=== PATIENT | male | born 1945 | race Hispanic/Latino ===

== ENCOUNTER 2018-01-12 19:13 | Inpatient (IN) | payer OTHER ==
[2018-01-12 20:02] LABS: Absolute Lymphocytes (CBC) 2.1 K/uL (0.7-4.9); Absolute Monocytes 0.5 K/uL (0.1-1.3); Absolute Neutrophil 4.5 K/uL (1.8-8.0); Basophils % 0.7 % (0-1.3); Eosinophils % 2.4 % (0-4.4); Hematocrit 30.2 % (39.6-49.0); Lymphocytes % 27.9 % (15.3-44.8); MCH 31.3 pg (27.0-35.0); MCV 91.1 fL (80-100); MPV 8.6 fL (7.6-11.3); Monocytes % 7.3 % (3.3-12.3); Potassium 4.7 mEq/L (3.6-5.0); RBC Red Blood Cell Count 3.31 M/uL (4.33-5.43)
[2018-01-12 20:09] LABS: Protime INR 1.08
[2018-01-12 20:11] LABS: Magnesium 2.1 mg/dL (1.8-2.5)
--- NOTE | 2018-01-12 20:19 | RAD REPORT ---
EXAM DESCRIPTION: CT - Head Brain Wo Cont - 01/12/2018 7:44 pm CLINICAL HISTORY: Facial droop, possible CVA COMPARISON: None. TECHNIQUE: Axial 5 mm thick images of the head were obtained without IV contrast. All CT scans are performed using dose optimization technique as appropriate and may include automated exposure control or mA/KV adjustment according to patient size. FINDINGS: No intracranial hemorrhage. No acute cortical based infarction. Patient has a mild underly ing atrophy and chronic ischemic change. There is focally more prominent area of diminished attenuati on in the right basal ganglia and deep periventricular white matter right frontal lobe. No other area of focal attenuation abnormality. No abnormal extra-axial fluid collections. Ventricles are normal. Mastoid air cells and visualized portions of the paranasal sinuses are clear. No acute bony findings. IMPRESSION: Focal diminished attenuation right basal ganglia and deep periventricular white frontal lobe suspicious for acute to subacute nonhemorrhagic infarction. MR imaging could be used as follow-up to confirm or exclude acute component. Underlying atrophy and chronic ischemic change.
--- NOTE | 2018-01-12 20:20 | RAD REPORT ---
EXAM DESCRIPTION: RAD - Chest Single View - 01/12/2018 7:52 pm CLINICAL HISTORY: Shortness of breath, stroke-like symptoms COMPARISON: None. TECHNIQUE: AP portable chest image was obtained 1942 hour . FINDINGS: Lung volumes are low. No peripheral mass or consolidation. No failure or volume overload. Heart and vasculature are normal. No measurable pleural effusion and no pneumothorax. No gross bony a bnormality seen. No acute aortic findings suspected. IMPRESSION: Shallow inspiration film showing no acute cardiopulmonary finding.
[2018-01-12] MEDS ORDERED: ACETAMINOPHEN 500 MG TAB PO PRN (21:56)
[2018-01-12] MEDS ORDERED: ONDANSETRON 4 MG/2 ML VIAL IV PRN (21:56)
[2018-01-12] MEDS ORDERED: MAGNESIUM HYDROXIDE 8% 30 ML PO PRN (21:56)
--- NOTE | 2018-01-12 22:15 | EDPHYS ---
Physician Documentation [facility] Name: Bryon Hopson Age: 72 yrs Sex: Male : 1945 Arrival Date: 01/12/2018 Time: 19:15 Bed 28 Private MD: ED Physician Carter Smith HPI: 01/12 22:15 This 72 yrs old Male presents to ER via Ambulatory with complaints of S/S of ps1 Possible Stroke. 22:15 The patient's problem is reported as a facial droop, on left. Onset: The ps1 symptoms/episode began/occurred yesterday, at 18:00. Duration: This was a single incident, The episode is continuous. Context: occurred at home. Patient's baseline: Neuro: alert and fully oriented, Motor: no deficits, Ambulation: walks without assistance, Speech: normal. No blood thinners. . Historical: - Allergies: 19:27 No Known Allergies; la1 - PMHx: 19:27 Hypertension; Diabetes - NIDDM; la1 - Immunization history:: Adult Immunizations up to date. - Social history:: Smoking status: unknown. ROS: 22:15 Constitutional: Negative for fever, chills, and weight loss, Eyes: Negative for injury, ps1 pain, redness, and discharge, ENT: Negative for injury, pain, and discharge, Cardiovascular: Negative for chest pain, palpitations, and edema, Respiratory: Negative for shortness of breath, cough, wheezing, and pleuritic chest pain, Abdomen/GI: Negative for abdominal pain, nausea, vomiting, diarrhea, and constipation, Back: Negative for injury and pain, : Negative for injury, bleeding, discharge, and swelling, MS/Extremity: Negative for injury and deformity, Skin: Negative for injury, rash, and discoloration. 22:15 Neuro: Positive for weakness, left facial droop. Exam: 22:16 Radiologist reports: subacute basal ganglia stroke ps1 22:16 Constitutional: This is a well developed, well nourished patient who is awake, alert, and in no acute distress. Head/Face: Normocephalic, atraumatic. Eyes: Pupils equal round and reactive to light, extra-ocular motions intact. Lids and lashes normal. Conjunctiva and sclera are non-icteric and not injected. ENT: Nares patent. No nasal discharge, no septal abnormalities noted. Tympanic membranes are normal and external auditory canals are clear. Oropharynx with no redness, swelling, or masses, exudates, or evidence of obstruction, uvula midline. Mucous membranes moist. Chest/axilla: Normal chest wall appearance and motion. Nontender with no deformity. No lesions are appreciated. Cardiovascular: Regular rate and rhythm. No gallops, murmurs, or rubs. Normal PMI, no JVD. No pulse deficits. Respiratory: Lungs have equal breath sounds bilaterally, clear to auscultation and percussion. No rales, rhonchi or wheezes noted. No increased work of breathing, no retractions or nasal flaring. Abdomen/GI: Soft, non-tender, with normal bowel sounds. No distension or tympany. No guarding or rebound. No evidence of tenderness throughout. 22:16 MS/ Extremity: Pulses equal, no cyanosis. Neurovascular intact. Full, normal range of motion. 22:16 Neuro: Orientation: is normal, Mentation: is normal, Memory: is normal, Cranial nerves: normal except 7, facial droop noted on left, with forehead spared. Vital Signs: 19:23 BP 206 / 85; Pulse 71; Resp 24; Temp 97.8(TE); Pulse Ox 99% on R/A; ae1 20:17 BP 175 / 85; Pulse 73; Resp 19; Pulse Ox 100% on R/A; la1 20:38 BP 187 / 87; Pulse 84; Resp 19; Temp 97.1; Pulse Ox 100% on R/A; la1 21:34 BP 174 / 74; Pulse 63; Resp 19; Pulse Ox 96% on R/A; la1 22:45 BP 177 / 100; Pulse 63; Resp 19; Pulse Ox 100% on R/A; lp1 NIH Stroke Scale Scores: 19:28 NIHSS Score: 2 la1 MDM: 20:26 Patient medically screened. ps1 22:16 Data reviewed: vital signs, nurses notes, lab test result(s), radiologic studies. ED ps1 course: pt with subacute stroke. Admit for neurology consult, MRI, risk reduction, PT/OT. . 01/12 19:28 Order name: Magnesium; Complete Time: 20:15 ps1 01/12 19:28 Order name: Basic Metabolic Panel; Complete Time: 20:15 ps1 01/12 19:28 Order name: CBC with Diff; Complete Time: 20:15 ps1 01/12 19:28 Order name: Protime (+inr); Complete Time: 20:15 ps1 01/12 19:28 Order name: Lipid Profile; Complete Time: 20:15 [facility] 01/12 19:42 Order name: Glucose, Ancillary Testing; Complete Time: 20:15 [facility] 01/12 22:00 Order name: CBC with Automated Diff EDMS 01/12 22:00 Order name: CBC with Automated Diff EDMS 01/12 22:00 Order name: Comprehensive Metabolic Panel EDMS 01/12 22:00 Order name: Comprehensive Metabolic Panel EDMS 01/12 22:00 Order name: Hemoglobin A1C [facility] 01/12 22:00 Order name: Hemoglobin A1C [facility] 01/12 22:00 Order name: Lipid Profile [facility] 01/12 22:00 Order name: Lipid Profile [facility] 01/12 19:28 Order name: CT Head Brain wo Cont; Complete Time: 20:26 ps1 01/12 19:28 Order name: Stroke CXR 1 View; Complete Time: 20:26 [facility] 01/12 19:28 Order name: EKG; Complete Time: 19:29 [facility] 01/12 22:00 Order name: Echo with Doppler [facility] 01/12 22:00 Order name: Stroke Protocol [facility] 01/12 22:00 Order name: Magnesium [facility] 01/12 22:00 Order name: Magnesium [facility] 01/12 22:00 Order name: Phosphorus [facility] 01/12 22:00 Order name: Phosphorus [facility] 01/12 22:00 Order name: T4,Total EDMS 01/12 22:00 Order name: T4,Total [facility] 01/12 22:00 Order name: Thyroid Stimulating Hormone [facility] 01/12 22:00 Order name: Thyroid Stimulating Hormone [facility] 01/12 22:01 Order name: Chest Pa And Lat (2 Views) [facility] 01/13 02:20 Order name: Urine Dipstick--Ancillary (enter results) oe 01/13 02:32 Order name: Urine Dipstick-Ancillary; Complete Time: 02:35 [facility] 01/12 19:28 Order name: Accucheck; Complete Time: 19:30 ps1 01/12 19:28 Order name: Cardiac monitoring; Complete Time: 19:30 [facility] 01/12 19:28 Order name: EKG - Nurse/Tech; Complete Time: 19:30 [facility] 01/12 19:28 Order name: IV Saline Lock; Complete Time: : [facility] 01/12 19:28 Order name: Labs collected and sent; Complete Time: : [facility] 01/12 19:28 Order name: NPO; Complete Time: : [facility] 01/12 19:28 Order name: O2 Per Protocol; Complete Time: : [facility] 01/12 19:28 Order name: O2 Sat Monitoring; Complete Time: : [facility] 01/12 19:28 Order name: Stroke Swallow Screen; Complete Time: 22:08 [facility] 01/12 22:00 Order name: CONS Physician Consult [facility] 01/12 22:00 Order name: EKG Electrocardiogram [facility] 01/12 22:00 Order name: NPO [facility] 01/12 22:00 Order name: Physical Therapy Consult [facility] 01/12 22:01 Order name: Speech Therapy Consult EDMS Administered Medications: No medications were administered Point of Care Testing: Blood Glucose: 19:23 Blood Glucose: 177 mg/dL; ae1 Ranges: Critical Glucose Levels:Adult <50 mg/dl or >400 mg/dl <40 mg/dl or >180 mg/dl Disposition: 01/12/18 22:14 Hospitalization ordered by Lizzy Ortega for Inpatient Admission. Preliminary diagnosis is Ischemic Stroke.. - Bed requested for Telemetry/MedSurg (Inpatient). - Status is Inpatient Admission. bb - Condition is Stable. - Problem is new. - Symptoms are unchanged. UTI on Admission? No NIH Stroke Scale - NIH Stroke Score Date: 01/12/2018 Time: : Total Score = 2 1a. Level of Consciousness (LOC) - 0(Alert) 1b. Level of Consciousness (LOC) (Year \T\ Age) - 0(Both) 1c. LOC Commands (Open \T\ Closes Eyes/Security Monitor) - 0(Both) 2. Best Gaze (Lateral Gaze Paresis) - 0(Normal) 3. Visual Field Loss - 0(No visual loss) 4. Facial Palsy - 2(Partial paralysis) 5a. Left Arm: Motor (10-second hold) - 0(No drift) 5b. Right Arm: Motor (10-second hold) - 0(No drift) 6a. Left Leg: Motor (5-second hold - always test supine) - 0(No drift) 6b. Right Leg: Motor (5-second hold - always test supine) - 0(No drift) 7. Limb Ataxia (finger/nose \T\ heel/pate - test with eyes open) - 0(Absent) 8. Sensory Loss (pinprick arms/legs/face) - 0(Normal) 9. Best Language: Aphasia (description/naming/reading) - 0(No aphasia) 10. Dysarthria (speech clarity - read or repeat words) - 0(Normal) 11. Extinction and Inattention (visual/tactile/auditory/spatial/personal) - 0(No abnormality) Initials: la1 Signatures: Dispatcher [employer] EDAde Jackman RN RN mw Ballard, Brenda, RN RN bb Attema, Lee, RN RN la1 Carter Smith MD MD ps1
--- NOTE | 2018-01-12 22:15 | ER ---
Nurse's Notes [facility] Name: Bryon Hopson Age: 72 yrs Sex: Male : 1945 Arrival Date: 01/12/2018 Time: 19:15 Bed 28 Private MD: Diagnosis: Ischemic Stroke. Presentation: 01/12 19:24 Presenting complaint:. ae1 19:24 Acuity: MERE 2 ae1 19:26 Transition of care: patient was not received from another setting of care. An acute la1 neurological deficit is present. Pre-hospital glucose is not applicable to this patient. Onset of symptoms was January 11, 2018. Initial Sepsis Screen: Does the patient meet any 2 criteria? No. Patient's initial sepsis screen is negative. Does the patient have a suspected source of infection? No. Patient's initial sepsis screen is negative. Care prior to arrival: None. 19:26 Method Of Arrival: Ambulatory la1 Triage Assessment: 22:26 The onset of the patients symptoms was January 11, 2018 at 18:00. lp1 Stroke Activation: Symptom onset > 6 hours Physician: Stroke Attending; Name: ; Notified At: ; Arrived At: Physician: Chief Stroke Resident; Name: ; Notified At: ; Arrived At: Physician: Stroke Resident; Name: ; Notified At: ; Arrived At: Physician: ED Attending; Name: ; Notified At: ; Arrived At: Physician: ED Resident; Name: ; Notified At: ; Arrived At: Historical: - Allergies: 19:27 No Known Allergies; la1 - PMHx: 19:27 Hypertension; Diabetes - NIDDM; la1 - Immunization history:: Adult Immunizations up to date. - Social history:: Smoking status: unknown. Screenin:27 Abuse screen: Denies threats or abuse. Nutritional screening: No deficits noted. la1 Tuberculosis screening: No symptoms or risk factors identified. Fall Risk None identified. Assessment: 19:28 T-PA (Activase) Screening: Contraindications: Patient reports onset of signs and la1 symptoms of stroke greater than 6 hours ago: Yes. General: Appears in no apparent distress. Behavior is calm, cooperative. Pain: Denies pain. Neuro: Level of Consciousness is awake, alert, obeys commands, Oriented to person, place, time, situation, Weight Control Engineer are equal bilaterally Moves all extremities. Full function Gait is steady, Speech is normal, Facial droop on right, Pupils are PERRLA. Cardiovascular: Capillary refill < 3 seconds Patient's skin is warm and dry. Rhythm is sinus rhythm. Respiratory: Airway is patent Respiratory effort is even, unlabored, Respiratory pattern is regular, symmetrical, Breath sounds are clear bilaterally. GI: No signs and/or symptoms were reported involving the gastrointestinal system. 20:02 The patient has not been NPO before screening. The patient is alert, and able to follow la1 commands. The patient does not exhibit slurred or garbled speech. The patient is not exhibiting difficulty speaking. The patient is exhibiting difficulty understanding words. The patient is able to swallow own secretions with no drooling or need for suction. Patient tolerated one teaspoon of water. No drooling, immediate coughing, gurgling, or clearing of the throat was noted. The patient did not tolerate 90mL of water. Drooling, immediate coughing, gurgling, or clearing of the throat was noted. The patient failed the bedside swallow screening. The patient will be kept NPO until cleared by Speech Therapy or Physician. Provider notified of bedside swallow screening results: Carter Smith MD. 20:17 Reassessment: Patient appears in no apparent distress at this time. No changes from la1 previously documented assessment. Patient and/or family updated on plan of care and expected duration. Pain level reassessed. 21:34 Reassessment: Patient appears in no apparent distress at this time. No changes from la1 previously documented assessment. Patient and/or family updated on plan of care and expected duration. Pain level reassessed. 01/13 00:00 Reassessment: Patient ER hold, continued documentation on [employer]. ad1 Vital Signs: 01/12 19:23 BP 206 / 85; Pulse 71; Resp 24; Temp 97.8(TE); Pulse Ox 99% on R/A; ae1 20:17 BP 175 / 85; Pulse 73; Resp 19; Pulse Ox 100% on R/A; la1 20:38 BP 187 / 87; Pulse 84; Resp 19; Temp 97.1; Pulse Ox 100% on R/A; la1 21:34 BP 174 / 74; Pulse 63; Resp 19; Pulse Ox 96% on R/A; la1 22:45 BP 177 / 100; Pulse 63; Resp 19; Pulse Ox 100% on R/A; lp1 NIH Stroke Scale Scores: 19:28 NIHSS Score: 2 la1 ED Course: 19:15 Patient arrived in ED. mr 19:20 Carter Smith MD is Attending Physician. ps1 19:25 Triage completed. ae1 19:25 Danie Finney, RN is Primary Nurse. la1 19:26 Arm band placed on left wrist. la1 19:27 No provider procedures requiring assistance completed. Inserted saline lock: 20 gauge la1 in right antecubital area, using aseptic technique. 19:29 Placed in gown. Bed in low position. Call light in reach. air sampling and monitoring on. Pulse ox la1 on. NIBP on. 19:44 CT Head Brain wo Cont In Process Unspecified. EDMS 19:44 CT completed. Patient tolerated procedure well. Patient moved to CT via stretcher. Patient moved back from CT. 19:52 Stroke CXR 1 View In Process Unspecified. EDMS 22:00 Report received from Danie Finney RN. lp1 22:14 Carter Smith MD is Hospitalizing Provider. ps1 22:14 Lizzy Ortega MD is Hospitalizing Provider. ps1 22:25 Patient admitted, IV remains in place. lp1 22:34 Chest Pa And Lat (2 Views) In Process Unspecified. EDMS 22:34 X-ray completed. Portable x-ray completed in exam room. Patient tolerated procedure kc2 well. 22:34 Patient moved back from radiology. kc2 01/13 01:06 Primary Nurse role handed off by Danie Finney, RN cc Administered Medications: No medications were administered Point of Care Testing: Blood Glucose: 01/12 19:23 Blood Glucose: 177 mg/dL; ae1 Ranges: Outcome: 22:14 Decision to Hospitalize by Provider. ps1 23:10 Admitted to ER Hold. Please see [facility] for further documentation. lp1 23:10 Condition: stable 23:10 Instructed on the need for admit. 01/13 06:35 Patient left the ED. bb NIH Stroke Scale - NIH Stroke Score Date: 01/12/2018 Time: : Total Score = 2 1a. Level of Consciousness (LOC) - 0(Alert) 1b. Level of Consciousness (LOC) (Year \T\ Age) - 0(Both) 1c. LOC Commands (Open \T\ Closes Eyes/Personnel Recruiter) - 0(Both) 2. Best Gaze (Lateral Gaze Paresis) - 0(Normal) 3. Visual Field Loss - 0(No visual loss) 4. Facial Palsy - 2(Partial paralysis) 5a. Left Arm: Motor (10-second hold) - 0(No drift) 5b. Right Arm: Motor (10-second hold) - 0(No drift) 6a. Left Leg: Motor (5-second hold - always test supine) - 0(No drift) 6b. Right Leg: Motor (5-second hold - always test supine) - 0(No drift) 7. Limb Ataxia (finger/nose \T\ heel/pate - test with eyes open) - 0(Absent) 8. Sensory Loss (pinprick arms/legs/face) - 0(Normal) 9. Best Language: Aphasia (description/naming/reading) - 0(No aphasia) 10. Dysarthria (speech clarity - read or repeat words) - 0(Normal) 11. Extinction and Inattention (visual/tactile/auditory/spatial/personal) - 0(No abnormality) Initials: la1 Signatures: Dispatcher [employer] [facility] Ileana Zhang mr Jorge, Venu Jenise Cade, RN RN Flor Mullen RN RN ad1 Pema Peres Laura, RN RN lp1 Danie Finney RN RN la1 Kathleen Campbell 2 Bart Fleming RN RN ae1 Carter Smith MD MD ps1
[2018-01-13] MEDS ORDERED: NA CHLORIDE 0.9% 1,000 ML ONE (00:31)
[2018-01-13] MEDS: NA CHLORIDE 0.9% 1,000 ML IV SCH ×3 (00:45→19:10)
[2018-01-13 01:23] VITALS: BMI 25.8
[2018-01-13 02:32] LABS: Urine Blood NEGATIVE (NEG); Urine Glucose NEGATIVE (NEG); Urine Protein 1+ (NEG); Urine Specific Gravity 1.015 (1.005-1.030)
[2018-01-13 06:43] LABS: Absolute Lymphocytes (CBC) 1.9 K/uL (0.7-4.9); Absolute Monocytes 0.5 K/uL (0.1-1.3); Absolute Neutrophil 3.3 K/uL (1.8-8.0); Basophils % 0.9 % (0-1.3); Eosinophils % 3.5 % (0-4.4); Hematocrit 30.3 % (39.6-49.0); Lymphocytes % 32.6 % (15.3-44.8); MCH 30.2 pg (27.0-35.0); MPV 8.3 fL (7.6-11.3); Monocytes % 7.7 % (3.3-12.3); RBC Red Blood Cell Count 3.33 M/uL (4.33-5.43)
[2018-01-13] MEDS ORDERED: HOME MED 1 EA UNK (Metformin Hcl [Metformin Hcl] 1,000 MG) PO SCH (08:00)
[2018-01-13 08:27] LABS: Albumin 3.8 g/dL (3.2-5.5); Bilirubin Total 0.6 mg/dL (0.3-1.2); Magnesium 1.9 mg/dL (1.8-2.5); Potassium 4.5 mEq/L (3.6-5.0); Protein, Total 7.1 g/dL (6.0-8.3); T4,Total 9.8 ug/dl (6.09-12.23); Thyroid Stimulating Hormone 3.13 uIU/mL (0.34-5.60)
--- NOTE | 2018-01-13 08:28 | P.HP ---
Certification for Inpatient Patient admitted to: Inpatient With expected LOS: >2 Midnights Patient will require the following post-hospital care: None Practitioner: I am a practitioner with admitting privileges, knowledge of patient current condition, hospital course, and medical plan of care. Services: Services provided to patient in accordance with Admission requirements found in Title 42 Section 412.3 of the Code of Federal Regulations Patient History Date of Service: 01/12/18 Reason for admission: left-sided facial droop History of Present Illness: Patient is a 72-year-old gentleman who presents to the hospital with a left- sided facial droop. Patient's droop started around 6:00 p.m. yesterday. This was shortly after he was eating dinner. The droop had not improve so he came into the hospital today. Patient was seen in the emergency room and a CT of the head was performed. According to the emergency room physician this revealed a subacute infarct. Patient was given anti-platelet therapy and statin therapy. Patient will be admitted to the hospital for an MRI of the brain along with an echocardiogram and carotid Doppler. Patient did well swallowing and does not necessarily need a swallow eval or physical therapy as strength is minimally diminished. Will discuss with Neurology regarding further plan of care. Allergies No Known Allergies Allergy (Verified 02/06/17 11:18) Home Medications: Gabapentin [Neurontin] 600 mg PO BID 01/13/18 Glipizide [Glucotrol] 10 mg PO BID 01/13/18 Latanoprost Ophth [Xalatan 0.005%*] 1 gtt OPTH BEDTIME 01/13/18 Metformin HCl 1,000 mg PO BID 01/13/18 Multivitamin [One-A-Day Essential] 1 tab PO DAILY 01/13/18 Polyvinyl Alcohol [Artificial Tears] 1 gtt OPTH QID 01/13/18 Ramipril [Altace] 10 mg PO DAILY 01/13/18 Timolol 0.5% Opth [Timoptic 0.5% Opth*] 1 gtt OPTH BID 01/13/18 Vit A/Vit C/Vit E/Zinc/Copper [Preservision Areds Softgel] 1 cap PO DAILY - Past Medical/Surgical History Has patient received pneumonia vaccine in the past: Yes Diabetic: Yes -: Hypertension -: NIDDM -: Cholecystectomy -: Cataracts - Family History Father Family History: Reviewed- Non-Contributory - Social History Smoking Status: Current every day smoker Alcohol use: No CD- Drugs: No Caffeine use: Yes Place of Residence: Home Review of Systems 10-point ROS is otherwise unremarkable Physical Examination - Vital Signs Temperature: 97.5 F Blood Pressure: 182/71 Pulse: 60 Respirations: 20 Pulse Ox (%): 100 - Physical Exam General: Alert, In no apparent distress, Oriented x3 HEENT: Atraumatic, PERRLA, Mucous membr. moist/pink, Other ( left-sided facial droop), EOMI, Sclerae nonicteric Neck: Supple, 2+ carotid pulse no bruit, No LAD, Without JVD or thyroid abnormality Respiratory: Clear to auscultation bilaterally, Normal air movement Cardiovascular: Regular rate/rhythm, Normal S1 S2, No murmurs Gastrointestinal: Normal bowel sounds, Soft and benign, Non-distended, No tenderness Musculoskeletal: No clubbing, No swelling, No tenderness Integumentary: No rashes Neurological: Normal gait, Normal speech, Normal strength at 5/5 x4 extr, Normal tone, Sensation intact, Normal affect, Abnormal cranial nerve function Lymphatics: No axilla or inguinal lymphadenopathy - Studies Laboratory Data (last 24 hrs) 01/12/18 19:30: PT 12.8 H, INR 1.08 01/12/18 19:30: WBC 7.4, Hgb 10.4 L, Hct 30.2 L, Plt Count 242 01/12/18 19:30: Sodium 137, Potassium 4.7, BUN 29 H, Creatinine 1.36 H, Glucose 177 H, Magnesium 2.1, Triglycerides 222 H, Cholesterol 163, HDL Cholesterol 38, Cholesterol/HDL Ratio 4.29 Assessment & Plan - Problems (Diagnosis) (1) Acute CVA (cerebrovascular accident) Current Visit: Yes Status: Acute (2) Hypertension Current Visit: Yes Status: Acute (3) Type 2 diabetes mellitus Current Visit: Yes Status: Acute (4) Acute kidney injury Current Visit: Yes Status: Acute - Plan 1. MRI of the brain 2. Echocardiogram and carotid Doppler 3. Anti-platelet therapy and statin therapy 4. Neurology consultation 5. Physical therapy/occupational therapy/speech therapy evaluation 6. Modified barium swallow study 7. DVT prophylaxis - Advance Directives Does patient have a Living Will: No Does patient have a Durable POA for Healthcare: No - Code Status/Comfort Care Code Status Assessed: Yes Code Status: Full Code Critical Care: No Time Spent Managing PTS Care (In Minutes): 45
[2018-01-13] MEDS: RAMIPRIL 5 MG CAP PO SCH (08:58)
[2018-01-13] MEDS: ENOXAPARIN 40 MG/0.4 ML SQ SCH (08:58)
[2018-01-13] MEDS: MULTIVITAMIN TAB PO SCH (08:58)
[2018-01-13] MEDS: AMLODIPINE 10 MG TAB PO SCH (08:59)
[2018-01-13] MEDS: glipiZIDE 5 MG TAB PO SCH ×2 (08:59→16:30)
[2018-01-13] MEDS: OCUVITE (VIT A,C & E/LUTEIN/MINERAL) TABLET PO SCH (08:59)
[2018-01-13] MEDS: METFORMIN HCL 500 MG TAB PO SCH ×2 (08:59→16:58)
[2018-01-13] MEDS: ASPIRIN EC 81 MG TAB PO SCH (08:59)
[2018-01-13] MEDS: GABAPENTIN 300 MG CAP PO SCH ×2 (08:59→20:51)
[2018-01-13] MEDS ORDERED: HOME MED 1 EA UNK (Gabapentin [Neurontin] 600 MG) PO SCH (09:00)
[2018-01-13] MEDS ORDERED: METFORMIN HCL 500 MG TAB PO SCH (09:00)
[2018-01-13] MEDS ORDERED: glipiZIDE 5 MG TAB PO SCH (09:00)
[2018-01-13] MEDS ORDERED: RAMIPRIL 5 MG CAP PO SCH (09:00)
[2018-01-13] MEDS: CLOPIDOGREL 75 MG TABLET PO SCH (09:00)
[2018-01-13] MEDS ORDERED: MULTIVITAMIN TAB PO SCH (09:00)
--- NOTE | 2018-01-13 10:52 | RAD REPORT ---
EXAM DESCRIPTION: RAD - Chest Pa And Lat (2 Views) - 01/12/2018 10:39 pm CLINICAL HISTORY: Chest pain, CVA COMPARISON: 01/12/2018 FINDINGS: The lungs are clear. The heart is normal in size. No displaced fractures. Mild thoracic sp ondylosis. IMPRESSION: No acute or concerning finding suspected.
--- NOTE | 2018-01-13 12:11 | P.PN ---
Subjective Date of Service: 01/13/18 Chief Complaint: left-sided facial droop Pt seen and examined at bedside with RN. Chart reviewed. Pt has no c/o overnight. Passed bedside swallow study. Review of Systems General: As per HPI Physical Examination - Vital Signs Temperature: 97.5 F Blood Pressure: 180/68 Pulse: 60 Respirations: 20 Pulse Ox (%): 100 - Physical Exam General: Alert, In no apparent distress, Oriented x3, Other (Left sided Facial droop noted. ) HEENT: Atraumatic Neck: Supple Respiratory: Clear to auscultation bilaterally, Normal air movement Cardiovascular: Regular rate/rhythm, Normal S1 S2 Gastrointestinal: Normal bowel sounds, No tenderness Musculoskeletal: No tenderness Integumentary: No rashes Neurological: Normal speech, Normal strength at 5/5 x4 extr, Normal tone, Cranial nerves 3-12 intact, Normal affect, Other (Left sided facial Droop) Lymphatics: No axilla or inguinal lymphadenopathy - Studies Laboratory Data (last 24 hrs) 01/12/18 19:30: PT 12.8 H, INR 1.08 01/12/18 19:30: WBC 7.4, Hgb 10.4 L, Hct 30.2 L, Plt Count 242 01/12/18 19:30: Sodium 137, Potassium 4.7, BUN 29 H, Creatinine 1.36 H, Glucose 177 H, Magnesium 2.1, Triglycerides 222 H, Cholesterol 163, HDL Cholesterol 38, Cholesterol/HDL Ratio 4.29 Medications List Reviewed: Yes Assessment & Plan - Problems (Diagnosis) (1) Acute CVA (cerebrovascular accident) Current Visit: Yes Status: Acute Plan: Right Basal Ganglia infarct with left side facial Droop -Head CT + for right basal ganglia and deep white frontal lobe infarct -MRI, MRA and ECHO pending -Carotid U/S pending -ASA, Plavix, Lipitor on board -Neurology consulted. Awaiting reccs -PT.OT and ST consulted -Pt passed bedside swallow. (2) Acute kidney injury Current Visit: Yes Status: Resolved (3) Hypertension Current Visit: Yes Status: Chronic Qualifiers: Hypertension type: essential hypertension Qualified Code(s): I10 - Essential (primary) hypertension (4) Type 2 diabetes mellitus Current Visit: Yes Status: Chronic Qualifiers: Diabetes mellitus assisted insulin use: without petroleum terminal plant operator use Diabetes mellitus complication status: without complication Qualified Code(s): E11.9 - Type 2 diabetes mellitus without complications Discharge Plan: Other Plan to discharge in: 48 Hours - Code Status/Comfort Care Code Status Assessed: Yes Critical Care: No
[2018-01-13] MEDS ORDERED: D50W 25 GM/50 ML SYRINGE IV PRN (13:33)
[2018-01-13] MEDS ORDERED: GLUCAGON 1 MG/VIAL IM PRN (13:33)
[2018-01-13] MEDS: INSULIN -REGULAR HUMAN 50 UNIT/0.5 ML ML SQ SCH ×2 (16:30→20:53)
--- NOTE | 2018-01-13 18:11 | RAD REPORT ---
EXAM DESCRIPTION: JOCELYN - CP - 01/13/2018 5:53 pm CLINICAL HISTORY: CVA COMPARISON: None. TECHNIQUE: Real-time sonographic evaluation of both carotid systems was performed. Doppler interroga tion was performed with waveform tracing bilaterally. FINDINGS: Normal high resistance waveforms are noted in both external carotid arteries. The common c arotid arteries and internal carotid arteries show normal low resistance waveforms. Moderate hard plaquing is seen in both carotid bulbs, slightly greater on the left. Peak systolic and end diastolic velocity values and the ICA/CCA ratios are in the non-hemodynamically significant rang e. Antegrade flow seen in both vertebral arteries. IMPRESSION: Moderate hard plaquing in both carotid bulbs, slightly greater on the left. No evidence of a hemodynamically significant stenosis.
--- NOTE | 2018-01-13 18:55 | CON ---
Date of Consultation: 01/13/2018 Time: 1455. Reason: Stroke. History: A 72-year-old gentleman with hypertension and diabetes, who was in his usual state of healt h until he had abrupt onset of left arm clumsiness and left facial weakness night, had diffi culty opening the refrigerator door with his left hand. He is left-handed. He thought the problem w ould improve, but it did not, so when his daughter found him with left-sided weakness and difficulty swallowing and speaking on Monday, she brought him to the emergency department where a CT scan of the brain demonstrates hypodensity, right basal ganglia and periventricular white matter on the right as well consistent with symptom complex. The patient was not normally on Plavix or any type of lipid-l owering agent at home. Problem has been gotten any worse, has improved dramatically since being admi tted. Consultation was requested. Past Medical History: As alluded to. Medications: Currently Norvasc, aspirin 162, Lipitor 80, Plavix 75, Lovenox, gabapentin, Dilantin, T imoptic to glaucoma, metformin, Altace. Allergies: NONE. Social History: The patient is normally independent with activities of daily living. Family History: Noncontributory. Review of Systems: General: General good health. Eyes: Denies. Ears, Nose, Throat: Dysarthria. Cardiovascular: Hypertension. Pulmonary: Negative. GI: Negative. : Negative. Musculoskeletal: As noted. Neurologic: As noted. Psychiatric: Negative. Endocrine: Diabetes. Hematologic: Negative. Physical Examination: Vital Signs: 97.5, 60, 20, 180/68. General: Pleasant gentleman, lying in bed, in no distress. Awake, alert, oriented. Heart: Sinus rhythm. No carotid bruits. Lungs: Clear. Abdomen: Soft. Bowel sounds present. Neurologic: He is awake, alert, oriented. Moderate dysarthria. HEENT: Pupils reactive. Ocular motion full. Sanchez full. Moderate left facial weakness. Extremities: Examination of his extremities, slight drift in left upper extremity with bilateral int erphalangeal weakness 4+, otherwise full strength. Sensation decreased distally. No cortical extinc tion. Reflexes trace. Toes are actually bilaterally downgoing. Cerebellar exam demonstrates no antonia yanci. Stroke scale was 3. Impression: Acute cerebral infarction. Plan: Continue dual anti-platelet therapy for now, probably just downgrade that over the Plavix on d ischarge. Continue intensive statin therapy and DVT prophylaxis. LDL 95. TSH normal. Has echo and brain MRI upcoming. Check carotid Doppler as well. Thank you for the consult. We will continue to follow with you. PHONG Voice ID: [id number] Report ID: [id number]
[2018-01-13] MEDS: ATORVASTATIN 20 MG TAB PO SCH (20:51)
[2018-01-13] MEDS: LATANOPROST 0.005% 2.5ML OPTH OPTH SCH (20:52)
[2018-01-13] MEDS: TIMOLOL MALEATE 0.5% OPTH 5 ML BTL OPTH SCH (20:52)
[2018-01-14] MEDS: NA CHLORIDE 0.9% 1,000 ML IV SCH ×2 (04:06→20:25)
[2018-01-14] MEDS: INSULIN -REGULAR HUMAN 50 UNIT/0.5 ML ML SQ SCH ×4 (07:30→20:29)
[2018-01-14] MEDS: glipiZIDE 5 MG TAB PO SCH ×2 (07:30→16:30)
[2018-01-14] MEDS: METFORMIN HCL 500 MG TAB PO SCH ×2 (08:00→17:00)
[2018-01-14 08:23] LABS: A1c Component 0.48 mg/dL; Hemoglobin A1c 6.5 % (4-6.0)
[2018-01-14] MEDS: OCUVITE (VIT A,C & E/LUTEIN/MINERAL) TABLET PO SCH (09:04)
[2018-01-14] MEDS: AMLODIPINE 10 MG TAB PO SCH (09:04)
[2018-01-14] MEDS: CLOPIDOGREL 75 MG TABLET PO SCH (09:05)
[2018-01-14] MEDS: GABAPENTIN 300 MG CAP PO SCH ×2 (09:05→20:28)
[2018-01-14] MEDS: RAMIPRIL 5 MG CAP PO SCH (09:05)
[2018-01-14] MEDS: MULTIVITAMIN TAB PO SCH (09:05)
[2018-01-14] MEDS: ASPIRIN EC 81 MG TAB PO SCH (09:05)
[2018-01-14] MEDS: ENOXAPARIN 40 MG/0.4 ML SQ SCH (09:06)
[2018-01-14] MEDS: TIMOLOL MALEATE 0.5% OPTH 5 ML BTL OPTH SCH ×2 (09:09→20:27)
--- NOTE | 2018-01-14 10:40 | P.PN ---
Subjective Date of Service: 01/14/18 Chief Complaint: left-sided facial droop Pt seen and examined at bedside with RN. Chart reviewed. Pt has no c/o overnight. Passed bedside swallow study. Review of Systems General: As per HPI Physical Examination - Vital Signs Temperature: 98.2 F Blood Pressure: 194/82 Pulse: 66 Respirations: 18 Pulse Ox (%): 99 - Physical Exam General: Alert, In no apparent distress HEENT: Atraumatic, PERRLA, EOMI Neck: Supple, JVD not distended Respiratory: Clear to auscultation bilaterally, Normal air movement Cardiovascular: Regular rate/rhythm, Normal S1 S2 Gastrointestinal: Normal bowel sounds, No tenderness Musculoskeletal: No tenderness Integumentary: No rashes Neurological: Normal speech, Normal tone, Cranial nerves 3-12 intact, Normal reflexes 2+, Normal affect, Other (Left sided facial Droop) Lymphatics: No axilla or inguinal lymphadenopathy - Studies Medications List Reviewed: Yes Assessment & Plan - Problems (Diagnosis) (1) Acute CVA (cerebrovascular accident) Current Visit: Yes Status: Acute Plan: Right Basal Ganglia infarct with left side facial Droop. Doing well today. -Head CT + for right basal ganglia and deep white frontal lobe infarct -MRI, MRA and ECHO pending -Carotid U/S done -ASA, Plavix, Lipitor on board -Neurology consulted. Reccs appreciated -DC on plavix only. -Awaiting results from MRI -PT.OT and ST consulted -Pt passed bedside swallow. - PT and ST (2) Acute kidney injury Current Visit: Yes Status: Resolved Plan: Improved now. -Continue with IV fluids -Avoid Nephrotoxic agent (3) Hypertension Current Visit: Yes Status: Chronic Qualifiers: Hypertension type: essential hypertension Qualified Code(s): I10 - Essential (primary) hypertension (4) Type 2 diabetes mellitus Current Visit: Yes Status: Chronic Qualifiers: Diabetes mellitus manager intermediate insulin use: without custodial use Diabetes mellitus complication status: without complication Qualified Code(s): E11.9 - Type 2 diabetes mellitus without complications Discharge Plan: Home (With HH for PT and ST) Plan to discharge in: 24 Hours - Code Status/Comfort Care Code Status Assessed: Yes Critical Care: No
--- NOTE | 2018-01-14 15:21 | PN ---
Date of Progress Note: 01/14/2018 Time: 1115. Reason: Stroke. Interval History: The patient is stable. No difficulties overnight. MRI and echo still pending. S edimentation rate is elevated to 56. Thyroid normal. B12 is pending. LDL as noted elevated at 95. Physical Examination: Vital Signs: Blood pressure is remaining elevated 194/82. He is afebrile. Vitals are otherwise sta ble. General: He is awake, alert, and oriented. HEENT: Pupils reactive. Ocular motion full. Sanchez full. Decreased left nasolabial fold. Extremities: Drift left upper extremity. No cortical extinction. Reflexes trace. Left toe upgoing . Impression: Cerebral infarction. Plan: Continue present medications. Brain MRI and echo tomorrow. May be hold or stop dual anti-tia telet therapy and just transition over to Plavix depending on the results of the brain MRI and MRA. We will continue to follow with you. PHONG Voice ID: [id number] Report ID: [id number]
--- NOTE | 2018-01-14 16:14 | EKG ---
Test Date: 2018-01-12 Test Time: 19:24:00 Credit Products Officer: NANO MEASUREMENT RESULTS: Intervals: Rate: 67 MS: 148 QRSD: 98 QT: 392 QTc: 414 [place]: P: 25 MS: 148 QRS: 0 T: 4 INTERPRETIVE STATEMENTS: Normal sinus rhythm Normal ECG Compared to ECG 04/25/1996 09:51:00 No significant changes Electronically Signed On 01-14-18 16:14:01 CDT by Rashaun Miller
[2018-01-14] MEDS: ATORVASTATIN 20 MG TAB PO SCH (20:28)
[2018-01-14] MEDS: LATANOPROST 0.005% 2.5ML OPTH OPTH SCH (20:30)
[2018-01-15 02:41] VITALS: O2SAT 96
[2018-01-15] MEDS: NA CHLORIDE 0.9% 1,000 ML IV SCH (05:59)
[2018-01-15 06:22] LABS: Albumin 3.3 g/dL (3.2-5.5); Bilirubin Total 0.6 mg/dL (0.3-1.2); Potassium 4.1 mEq/L (3.6-5.0)
[2018-01-15 06:54] LABS: Absolute Lymphocytes (CBC) 1.7 K/uL (0.7-4.9); Absolute Monocytes 0.5 K/uL (0.1-1.3); Basophils % 0.6 % (0-1.3); Hematocrit 27.6 % (39.6-49.0); Lymphocytes % 31.2 % (15.3-44.8); MCH 30.9 pg (27.0-35.0); MCV 90.6 fL (80-100); MPV 8.5 fL (7.6-11.3); Monocytes % 8.8 % (3.3-12.3); RBC Red Blood Cell Count 3.05 M/uL (4.33-5.43)
[2018-01-15] MEDS: INSULIN -REGULAR HUMAN 50 UNIT/0.5 ML ML SQ SCH ×3 (07:30→15:57)
[2018-01-15] MEDS: ENOXAPARIN 40 MG/0.4 ML SQ SCH (09:22)
[2018-01-15] MEDS: glipiZIDE 5 MG TAB PO SCH ×2 (09:22→16:30)
[2018-01-15] MEDS: METFORMIN HCL 500 MG TAB PO SCH (09:23)
[2018-01-15] MEDS: CLOPIDOGREL 75 MG TABLET PO SCH (09:23)
[2018-01-15] MEDS: GABAPENTIN 300 MG CAP PO SCH (09:23)
[2018-01-15] MEDS: OCUVITE (VIT A,C & E/LUTEIN/MINERAL) TABLET PO SCH (09:23)
[2018-01-15] MEDS: ASPIRIN EC 81 MG TAB PO SCH (09:24)
[2018-01-15] MEDS: MULTIVITAMIN TAB PO SCH (09:25)
[2018-01-15] MEDS: RAMIPRIL 5 MG CAP PO SCH (09:25)
[2018-01-15] MEDS: AMLODIPINE 10 MG TAB PO SCH (09:25)
--- NOTE | 2018-01-15 09:54 | RAD REPORT ---
EXAM DESCRIPTION: MRI - Stroke Protocol - 01/15/2018 8:42 am CLINICAL HISTORY: CVA, slurred speech COMPARISON: CT head January 12 TECHNIQUE: Sagittal T1- weighted images were obtained along with PD/heavily T2- weighted and T2-FLAI R images. Axial DWI and ADC mapping sequences were also obtained. Coronal heavily T2- weighted images were obtained. MRA head imaging performed with source images and 3D reconstruction images reviewed. MRA neck imaging was performed with source and 3D reconstruction imaging reviewed. Post contrast T1 i maging was performed. A 17 ml GD dosage was utilized. FINDINGS: An approximately 2.5 centimeter area of abnormal diffusion signal is present in the deep p eriventricular white matter of the frontal lobe extending inferiorly to the superior margin basal patti glia. This incorporates a small portion of the posterior limb internal capsule. This has diminished s ignal on ADC mapping along with hypointense T1 and hyperintense T2 signal. This acute nonhemorrhagic CVA matches the abnormality on the January 12 CT study. No abnormal enhancement. No other areas of acute infarction identifiable. Patient has minimal atrophy and no measurable chroni c ischemic change. No significant mass effect. There is no edema or shift of midline structures. No e xtra-axial fluid collections. Fuentes-matter/white matter junction is preserved. Signal voids are seen a s a normal finding in the major intracranial vessels. Mastoid air cells and paranasal sinuses are clear. No globe or orbit abnormality. MRA Head imaging shows no aneurysm or vascular malformation. The anterior, middle and posterior cereb ral artery distribution show no significant degree of atherosclerotic change. Patient has a very smal l P1 LICENSE DISTRIBUTOR segment on the right. Almost all of the right LICENSE DISTRIBUTOR supply comes through the posterior communi cating artery. Approximately 50% stenosis present at the right common carotid internal carotid artery junction. The proximal left internal carotid artery shows 60% narrowing. Both internal carotid arteries are tortuou s but otherwise without additional stenosis. No internal carotid or common carotid dissection. Left v ertebral artery is dominant. There slight narrowing at the origin. No acute left vertebral finding. T here is little if any identifiable blood flow within the right vertebral artery.Carotid ultrasound sh owed right vertebral artery flow. It is possible that a muscular branch was incorrectly identified as a vertebral artery. IMPRESSION: Approximately 2.5 centimeter acute nonhemorrhagic infarction in the right frontal lobe p eriventricular white matter extending into the superior margin right basal ganglia and posterior limb internal capsule. These CVA findings match the CT study from January 12. No significant atrophy changes and no measurable chronic ischemic change. Approximately 50% stenosis of the right common carotid internal carotid junction and 60% stenosis of the initial 12 mm of the left internal carotid artery. Nonvisualization of the right vertebral artery. This could be due to dissection or occlusion. A very small vertebral artery as an anatomic variant would be possible. The carotid ultrasound finding of no rmal right vertebral artery flow may be the result of incorrect identification of a muscular branch. No significant intracranial atherosclerotic change. With an absent or very small P1 LICENSE DISTRIBUTOR segment, it i s not likely the infarction is related to the vertebral artery abnormality.
[2018-01-15] MEDS: TIMOLOL MALEATE 0.5% OPTH 5 ML BTL OPTH SCH (10:51)
--- NOTE | 2018-01-15 15:16 | ECHO ---
HEIGHT: 5 ft 8 in WEIGHT: 170 lb 0 oz DATE OF STUDY: 01/15/[address]: Lizzy Ortega MD 2-DIMENSIONAL: YES M.MODE: YES DOPPLER: YES COLOR FLOW: YES TDS: NO PORTABLE: NO DEFINITY: NO BUBBLE STUDY: NO DIAGNOSIS: STROKE CARDIAC HISTORY: CATHERIZATION: NO SURGERY: NO PROSTHETIC VALVE: NO PACEMAKER: NO MEASUREMENTS (cm) DIASTOLIC (NORMALS) SYSTOLIC (NORMALS) IVSd 1.1 (0.6-1.2) LA Diam 3.9 (1.9-4.0) LVEF 52% LVIDd 5.1 (3.5-5.7) LVIDs 3.7 (2.0-3.5) %FS 26% LVPWd 1.1 (0.6-1.2) Ao Diam 2.9 (2.0-3.7) 2 DIMENSIONAL ASSESSMENT: RIGHT ATRIUM: NORMAL LEFT ATRIUM: NORMAL RIGHT VENTRICLE: NORMAL LEFT VENTRICLE: NORMAL TRICUSPID VALVE: NORMAL MITRAL VALVE: NORMAL PULMONIC VALVE: NORMAL AORTIC VALVE: NORMAL PERICARDIAL EFFUSION: NONE AORTIC ROOT: NORMAL LEFT VENTRICULAR WALL MOTION: NORMAL DOPPLER/COLOR FLOW: NORMAL COMMENTS: NORMAL 2 DIMENSIONAL ECHOCARDIOGRAM WITH DOPPLER TECHNOLOGIST: JAYME MO RDCS
[2018-01-15 15:55] VITALS: BP 166/79; TEMP 97.6
--- NOTE | 2018-01-15 17:49 | P.DS ---
Admission Date: 01/12/18 Discharge Date: 01/15/18 Primary Care Provider: Dr. Britt Disposition: DC HOME/HOME HEALTH CARE Discharge Condition: GOOD Reason for Admission: left-sided facial droop Consultations: Neurology-Dr. Hensley Procedures: MRI/MRA brain: FINDINGS: An approximately 2.5 centimeter area of abnormal diffusion signal is present in the deep periventricular white matter of the frontal lobe extending inferiorly to the superior margin basal ganglia. This incorporates a small portion of the posterior limb internal capsule. This has diminished signal on ADC mapping along with hypointense T1 and hyperintense T2 signal. This acute nonhemorrhagic CVA matches the abnormality on the January 12 CT study. No abnormal enhancement. No other areas of acute infarction identifiable. Patient has minimal atrophy and no measurable chronic ischemic change. No significant mass effect. There is no edema or shift of midline structures. No extra-axial fluid collections. Fuentes- matter/white matter junction is preserved. Signal voids are seen as a normal finding in the major intracranial vessels. Mastoid air cells and paranasal sinuses are clear. No globe or orbit abnormality. MRA Head imaging shows no aneurysm or vascular malformation. The anterior, middle and posterior cerebral artery distribution show no significant degree of atherosclerotic change. Patient has a very small P1 FOREIGN CAR MECHANIC segment on the right. Almost all of the right FOREIGN CAR MECHANIC supply comes through the posterior communicating artery. Approximately 50% stenosis present at the right common carotid internal carotid artery junction. The proximal left internal carotid artery shows 60% narrowing. Both internal carotid arteries are tortuous but otherwise without additional stenosis. No internal carotid or common carotid dissection. Left vertebral artery is dominant. There slight narrowing at the origin. No acute left vertebral finding. There is little if any identifiable blood flow within the right vertebral artery.Carotid ultrasound showed right vertebral artery flow. It is possible that a muscular branch was incorrectly identified as a vertebral artery. IMPRESSION: Approximately 2.5 centimeter acute nonhemorrhagic infarction in the right frontal lobe periventricular white matter extending into the superior margin right basal ganglia and posterior limb internal capsule. These CVA findings match the CT study from January 12. No significant atrophy changes and no measurable chronic ischemic change. Approximately 50% stenosis of the right common carotid internal carotid junction and 60% stenosis of the initial 12 mm of the left internal carotid artery. Nonvisualization of the right vertebral artery. This could be due to dissection or occlusion. A very small vertebral artery as an anatomic variant would be possible. The carotid ultrasound finding of normal right vertebral artery flow may be the result of incorrect identification of a muscular branch. No significant intracranial atherosclerotic change. With an absent or very small P1 FOREIGN CAR MECHANIC segment, it is not likely the infarction is related to the vertebral artery abnormality. ECHO: Echocardiogram 61% otherwise unremarkable Carotid doppler: Moderate plaque noted but no significant stenosis noted - Problems (1) Hyperlipidemia Status: Chronic Qualifiers: Hyperlipidemia type: unspecified Qualified Code(s): E78.5 - Hyperlipidemia , unspecified (2) Acute CVA (cerebrovascular accident) Onset Date: 01/15/18 Status: Acute (3) Hypertension Onset Date: 01/15/18 Status: Chronic Qualifiers: Hypertension type: essential hypertension Qualified Code(s): I10 - Essential (primary) hypertension (4) Type 2 diabetes mellitus Onset Date: 01/15/18 Status: Chronic Qualifiers: Diabetes mellitus moth exterminator insulin use: without moth exterminator use Diabetes mellitus complication status: without complication Qualified Code(s): E11.9 - Type 2 diabetes mellitus without complications Brief History of Present Illness: 72-year-old male presented emergency room with weakness and left facial droop. Patient has a history of diabetes, hypertension. The patient was evaluated for possible CVA Hospital Course: The patient presented with weakness throughout and left-sided facial weakness. Patient was evaluated by neurology. CT scan, MRI brain was done. MRI/MRA brain showed 2.5 centimeter acute nonhemorrhagic infarction in the right frontal lobe periventricular white matter extending into the superior margin right basal ganglia and posterior limb internal capsule. Approximately 50% stenosis of the right common carotid internal carotid junction and 60% stenosis of the initial 12 mm of the left internal carotid artery. Echocardiogram was unremarkable with ejection fraction of 61%. Carotid Doppler showed moderate plaque but no significant stenosis. During his stay the patient reported no previous use of aspirin and Plavix. Patient did well with dual therapy in in the hospital. Case was discussed at length with Neurology and his PCP. At discharge patient will continue with Plavix 75 mg 1 pill once daily. Other new medications include Lipitor 80 mg 1 pill daily for hyperlipidemia and Norvasc 10 mg 1 pill daily to be added for hypertension. Patient was evaluated by physical therapy, occupational therapy and speech therapy. At discharge home health will be continued along with occupational and speech therapy. Recommendation is for the patient to follow up with neurology in 2-4 weeks to monitor his progress. Further adjustment can be done by his PCP. Patient has hypertension. Blood pressure medications had to be adjusted. Patient will continue with Altace 10 mg 1 pill once daily. Norvasc 10 mg 1 pill once daily has been added. Patient will continue both medications. Recommendation is to maintain blood pressures less 150/80. Further adjustment can be done by his PCP. Patient has diabetes. This is well controlled. Hemoglobin A1c 6.5. Patient will continue with glipizide 10 mg 1 pill twice daily and metformin 1000 mg 1 pill twice daily. Recommendation is to maintain blood sugars less 140 fasting and less than 200 after meals. Further adjustment can be done by his PCP. Patient has hyperlipidemia. New medications include Lipitor 80 mg 1 pill once daily. Patient has diabetic neuropathy. Patient may continue with Neurontin as scheduled. Vital Signs/Physical Exam: Temp Pulse Resp BP Pulse Ox 97.6 F 71 18 166/79 H 98 01/15/18 15:54 01/15/18 15:54 01/15/18 15:54 01/15/18 15:54 01/15/18 15:54 General: Alert, In no apparent distress, Oriented x3, Cooperative HEENT: Atraumatic Neck: Supple Respiratory: Clear to auscultation bilaterally, Normal air movement Cardiovascular: Normal pulses, Regular rate/rhythm Gastrointestinal: Normal bowel sounds, Soft and benign, Non-distended Musculoskeletal: No erythema, No tenderness, No warmth Integumentary: No erythema, No warmth, No cyanosis Neurological: Normal speech, Normal strength at 5/5 x4 extr, Normal tone, Other (Left facial droop) Laboratory Data at Discharge: WBC 5.4 K/uL (4.3-10.9) 01/15/18 05:25 Hgb 9.4 g/dL (13.6-17.9) L 01/15/18 05:25 Hct 27.6 % (39.6-49.0) L 01/15/18 05:25 Plt Count 215 K/uL (152-406) 01/15/18 05:25 PT 12.8 SECONDS (9.5-12.5) H 01/12/18 19:30 INR 1.08 01/12/18 19:30 Sodium 142 mEq/L (135-145) 01/15/18 05:25 Potassium 4.1 mEq/L (3.6-5.0) 01/15/18 05:25 BUN 20 mg/dL (6-20) 01/15/18 05:25 Creatinine 1.18 mg/dL (0.61-1.24) 01/15/18 05:25 Glucose 94 mg/dL (65-120) 01/15/18 05:25 Phosphorus 3.0 mg/dL (2.5-4.3) 01/13/18 06:30 Magnesium 1.9 mg/dL (1.8-2.5) 01/13/18 06:30 Total Bilirubin 0.6 mg/dL (0.3-1.2) 01/15/18 05:25 AST 16 IU/L (10-42) 01/15/18 05:25 ALT 17 IU/L (10-60) 01/15/18 05:25 Alkaline Phosphatase 52 IU/L (42-121) 01/15/18 05:25 Triglycerides 178 mg/dL (35-160) H 01/13/18 06:30 Cholesterol 169 mg/dL (<200) 01/13/18 06:30 HDL Cholesterol 38 mg/dL (27-67) 01/13/18 06:30 Cholesterol/HDL Ratio 4.45 01/13/18 06:30 Home Medications: Gabapentin [Neurontin] 600 mg PO BID 01/13/18 Glipizide [Glucotrol] 10 mg PO BID 01/13/18 Latanoprost Ophth [Xalatan 0.005%*] 1 gtt OPTH BEDTIME 01/13/18 Metformin HCl 1,000 mg PO BID 01/13/18 Multivitamin [One-A-Day Essential] 1 tab PO DAILY 01/13/18 Polyvinyl Alcohol [Artificial Tears] 1 gtt OPTH QID 01/13/18 Ramipril [Altace] 10 mg PO DAILY 01/13/18 Timolol 0.5% Opth [Timoptic 0.5% Opth*] 1 gtt OPTH BID 01/13/18 Vit A/Vit C/Vit E/Zinc/Copper [Preservision Areds Softgel] 1 cap PO DAILY Amlodipine [Norvasc*] 10 mg PO DAILY #30 tab 01/15/18 Atorvastatin Calcium [Lipitor] 40 mg PO BEDTIME #120 tab 01/15/18 Clopidogrel Bisulfate [Plavix*] 75 mg PO DAILY #30 tablet 01/15/18 New Medications: Amlodipine [Norvasc*] 10 mg PO DAILY #30 tab Atorvastatin Calcium [Lipitor] 40 mg PO BEDTIME #120 tab Clopidogrel Bisulfate [Plavix*] 75 mg PO DAILY #30 tablet Patient Discharge Instructions: 1. Patient will need a follow up with his PCP in 1 week to follow up this hospitalization. 2. Patient presented with weakness and left-sided facial weakness. Patient found to have 2.5 centimeter acute nonhemorrhagic CVA in the right frontal lobe periventricular white matter extending into the superior margin right basal ganglia and posterior limb internal capsule. Patient evaluated by neurology. Patient previously not taking any medication including aspirin. At discharge patient will continue with Plavix 75 mg 1 pill once daily. New medications include Lipitor 80 mg 1 pill daily for hyperlipidemia and Norvasc 10 mg 1 pill daily to be added for hypertension. Patient was evaluated by physical therapy, occupational therapy and speech therapy. At discharge home health will be continued along with occupational and speech therapy. Recommendation is for the patient to follow up with neurology in 2-4 weeks to monitor his progress. Further adjustment can be done by his PCP. 3. Patient has hypertension. Medications have been adjusted. Patient will continue with Altace 10 mg 1 pill once daily. Norvasc 10 mg 1 pill once daily has been added. Patient will continue both medications. Recommendation is to maintain blood pressures less 150/80. Further adjustment can be done by his PCP. 4. Patient has diabetes. This is well controlled. Hemoglobin A1c 6.5. Patient will continue with glipizide 10 mg 1 pill twice daily and metformin 1000 mg 1 pill twice daily. Recommendation is to maintain blood sugars less 140 fasting and less than 200 after meals. Further adjustment can be done by his PCP. 5. Patient has hyperlipidemia. New medications include Lipitor 80 mg 1 pill once daily. 6. Patient has diabetic neuropathy. Patient may continue with Neurontin as scheduled. Diet: Continue current diet Activity: Fall precautions Followup: Faisal Hensley MD [ACTIVE - CAN ADMIT] - (call to schedule appointment) Time spent managing pt's care (in minutes): 55
--- NOTE | 2018-04-09 10:56 | PN ---
Date of Progress Note: 01/05/2018 The patient states that he feels somewhat better today. His appetite has improved slightly, he has s lightly increase intake. However, his MRI does confirm at least 1 area of recent involvement, discus sed with neurologist, probably time to initiate more aggressive antithrombotic regimen. He has been up and about. We will consult for transfer to 5th floor in a few days. HR/MODL Voice ID: [id number] Report ID: [id number]
== END 2018-01-15 16:52 | disposition home health service (06) | DRG 65 ==
LOC: ER 19:13 → ERHOLD 22:52 → 4TH 01-13 04:32
PROVIDERS: ADMIT Hospitalist; ATTEND Hospitalist
DX: I63.9 Cerebral infarction, unspecified (principal); N17.9 Acute kidney failure, unspecified; I10 Essential (primary) hypertension; E11.9 Type 2 diabetes mellitus without complications
CPT/HCPCS: 36415; 70450; 70544; 70549; 70553; 71045; 71046; 80048; 80053; 80061; 81003; 82607; 82962; 83036; 83735; 84100; 84436; 84443; 85025; 85610; 85652; 93005; 93306; 93880; 97163; 99285; A9577; J1650; J7030

== ENCOUNTER 2018-04-05 09:51 | Inpatient (IN) | payer OTHER ==
[2018-04-05 10:41] LABS: Absolute Lymphocytes (CBC) 1.3 K/uL (0.7-4.9); Absolute Monocytes 0.4 K/uL (0.1-1.3); Absolute Neutrophil 4.8 K/uL (1.8-8.0); Basophils % 0.8 % (0-1.3); Lymphocytes % 19.5 % (15.3-44.8); MCV 90.9 fL (80-100); MPV 8.4 fL (7.6-11.3); Monocytes % 6.6 % (3.3-12.3); RBC Red Blood Cell Count 3.19 M/uL (4.33-5.43)
[2018-04-05 11:00] LABS: Protime INR 1.18
[2018-04-05] MEDS ORDERED: NA CHLORIDE 0.9% 500 ML ONE (11:00)
--- NOTE | 2018-04-05 11:00 | RAD REPORT ---
EXAM DESCRIPTION: CT - Head Brain Wo Cont - 04/05/2018 10:52 am CLINICAL HISTORY: WEAKNESS CVA COMPARISON: Head Brain Wo Cont dated 01/30/2018; Head Brain Wo Cont dated 01/12/2018; Stroke Protocol dated 01/15/2018 TECHNIQUE: All CT scans are performed using dose optimization technique as appropriate and may inclu de automated exposure control or mA/KV adjustment according to patient size. FINDINGS: No intracranial hemorrhage, hydrocephalus or extra-axial fluid collection.A 2.2 cm area of diminished density is seen in the right periventricular white matter, appearing new since the 2017 study. Areas of gliosis in the right basal ganglia appear similar in distribution relative to co mparative study. These are suspected represent areas of subacute infarction. Small amount of fluid is seen in right maxillary antrum. The paranasal sinuses and mastoids otherwise clear. The calvarium is intact. IMPRESSION: Areas of diminished density in the right periventricular white matter tracts as noted. A 2.2 cm area appears new since the prior study likely representing subacute time frame infarct. No h emorrhage or midline shift. If there is continued clinical concern for CVA, MR imaging of the brain would be recommended.
[2018-04-05 11:07] LABS: ALT/SGPT 31 U/L (12-78); AST/SGOT 17 U/L (15-37); Albumin 3.8 g/dL (3.4-5.0); Alkaline Phosphatase 72 U/L (45-117); BUN Blood Urea Nitrogen 33 mg/dL (7-18); Bicarbonate 27 mmol/L (21-32); Bilirubin Direct 0.2 mg/dL (0-0.2); Bilirubin Total 0.6 mg/dL (0.2-1.0); CKMB Creatine Kinase MB < 1.0 ng/mL (0.3-3.6); Creatine Phosphokinase 77 U/L (39-308); Glucose Level 190 mg/dL (74-106); Lipase 226 U/L (73-393); Magnesium 2.3 mg/dL (1.8-2.4); Potassium 4.3 mmol/L (3.5-5.1); Protein, Total 7.7 g/dL (6.4-8.2); Sodium Level 142 mmol/L (136-145)
[2018-04-05] MEDS ORDERED: ASPIRIN 81 MG CHEWABLE TABLET ONE (11:23)
--- NOTE | 2018-04-05 11:36 | EDPHYS ---
Physician Documentation [facility] Name: Bryon Hopson Age: 72 yrs Sex: Male : 1945 Arrival Date: 04/05/2018 Time: 09:53 Bed 19 Private MD: Christopher Britt ED Physician Paulie Morales HPI: 04/05 10:21 This 72 yrs old Male presents to ER via Unassigned with complaints of rn Weakness, Trouble Walking - Repeated Falls. 10:21 The patient presents to the emergency department with weakness of the entire body, rn generalized weakness. Onset: The symptoms/episode began/occurred yesterday. Context: occurred at home. Severity of symptoms: At their worst the symptoms were moderate in the emergency department the symptoms are unchanged. Current symptoms: generalized weakness. The patient has not experienced similar symptoms in the past. The patient has not recently seen a physician. Reports generalized weakness, began yesterday, reports 2 falls, states minor and scraped left knee, no head injury, on plavix for previous stroke, no cough, + threw up once, no diarrhea, no chest pain/abd pain. . Historical: - Allergies: 10:33 No Known Allergies; hb - Home Meds: 10:11 vision shield [Active]; one a day [Active]; gabapentin 300 mg oral cap 1 cap 4 times a rb1 day [Active]; glipizide 5 mg Oral tab 1 tab 4 times a day [Active]; metformin 500 mg Oral tab 2 tabs 2 times per day [Active]; ramipril 10 mg Oral cap 1 cap once daily [Active]; Eye Drops ophthalmic [Active]; latanoprost 0.005 % ophthalmic drop 1 drop once daily [Active]; artificial tears(hypromellose) 0.4 % Opht drop [Active]; - PMHx: 10:33 Diabetes - NIDDM; Hypertension; CVA - left sided weakness; hb - PSHx: 10:11 bilateral eyes; Appendectomy; rb1 - Immunization history:: Adult Immunizations up to date. - Family history:: not pertinent. - Social history:: Smoking status: Patient/guardian denies using tobacco. - Ebola Screening: : Patient negative for fever greater than or equal to 101.5 degrees Fahrenheit, and additional compatible Ebola Virus Disease symptoms. - Hospitalizations: : No recent hospitalization is reported. ROS: 10:21 Constitutional: Negative for fever, chills, and weight loss, Eyes: Negative for injury, rn pain, redness, and discharge, Neck: Negative for injury, pain, and swelling, Cardiovascular: Negative for chest pain, palpitations, and edema, Respiratory: Negative for shortness of breath, cough, wheezing, and pleuritic chest pain, Abdomen/GI: Negative for abdominal pain, diarrhea, and constipation, MS/Extremity: Negative for injury and deformity, Skin: Negative for injury, rash, and discoloration, Neuro: + generalized weakness Exam: 10:21 Constitutional: This is a well developed, well nourished patient who is awake, alert, rn and in no acute distress. Head/Face: Normocephalic, atraumatic. Eyes: Pupils equal round and reactive to light, extra-ocular motions intact. Lids and lashes normal. Conjunctiva and sclera are non-icteric and not injected. Cornea within normal limits. Periorbital areas with no swelling, redness, or edema. ENT: dry MM Cardiovascular: Regular rate and rhythm with a normal S1 and S2. No gallops, murmurs, or rubs. Normal PMI, no JVD. No pulse deficits. Respiratory: Lungs have equal breath sounds bilaterally, clear to auscultation and percussion. No rales, rhonchi or wheezes noted. No increased work of breathing, no retractions or nasal flaring. Abdomen/GI: Soft, non-tender, with normal bowel sounds. No distension or tympany. No guarding or rebound. No evidence of tenderness throughout. MS/ Extremity: Pulses equal, no cyanosis. Neuro: Awake and alert, GCS 15, oriented to person, place, time, and situation. + left lower facial droop (baseline), 4/5 strength LUE (baseline), 4+/5 strength LLE (baseline), 5/5 strength RUE/RLE. No changes with head rotation. Vital Signs: 10:15 BP 175 / 85; Pulse 77; Resp 15; Temp 98.1; Pulse Ox 99% on R/A; Pain 0/10; hb 10:30 BP 132 / 83; Pulse 69; Resp 18; Pulse Ox 100% ; rb1 11:30 BP 147 / 85; Pulse 67; Resp 18; Pulse Ox 100% on R/A; rb1 12:00 BP 151 / 81; Pulse 70; Resp 19; Pulse Ox 100% on R/A; rb1 12:58 BP 149 / 83; Pulse 72; Resp 18; Pulse Ox 99% on R/A; Pain 0/10; rb1 NIH Stroke Scale Scores: 10:11 NIHSS Score: 5 rb1 MDM: 09:56 Patient medically screened. rn 11:03 ED course: Possible subacute CVA on CT head, new since previous study, no TPA indicated rn given began yesterday and outside of TPA window. Pt on plavix. . 11:34 Data reviewed: vital signs, nurses notes, lab test result(s), EKG, radiologic studies, rn and as a result, I will admit patient. Counseling: I had a detailed discussion with the patient and/or guardian regarding: the historical points, exam findings, and any diagnostic results supporting the discharge/admit diagnosis, lab results, radiology results, the need for further work-up and treatment in the hospital. Admission orders: after a detailed discussion of the patient's condition and case, the admit orders are written by me. ED course: Spoke with Dr. Britt and Dr. Hensley, will admit for hydration and further evaluation of subacute stroke.. 04/05 10:20 Order name: Urine Microscopic Only 04/05 10:20 Order name: Basic Metabolic Panel; Complete Time: 04/05 10:20 Order name: CBC with Diff; Complete Time: :04/05 10:20 Order name: Ckmb; Complete Time: 04/05 10:20 Order name: CPK; Complete Time: 04/05 10:20 Order name: Hepatic Function; Complete Time: 04/05 10:20 Order name: CT Head Brain wo Cont; Complete Time: :04/05 10:20 Order name: Lipase; Complete Time: 04/05 10:20 Order name: Magnesium; Complete Time: 04/05 10:20 Order name: Protime (+inr); Complete Time: :04/05 10:20 Order name: Ptt, Activated; Complete Time: 04/05 10:20 Order name: Troponin (emerg Dept Use Only); Complete Time: 11:04/05 10:20 Order name: EKG; Complete Time: 10: rn 04/05 10:20 Order name: Cardiac monitoring; Complete Time: rn 04/05 10:20 Order name: EKG - Nurse/Tech; Complete Time: rn 04/05 10:20 Order name: IV Saline Lock; Complete Time: : rn 04/05 10:20 Order name: Labs collected and sent; Complete Time: rn 04/05 10:20 Order name: NPO; Complete Time: rn 04/05 10:20 Order name: O2 Per Protocol; Complete Time: rn 04/05 10:20 Order name: O2 Sat Monitoring; Complete Time: rn 04/05 10:20 Order name: Glucose Level; Complete Time: 11:03 rn Administered Medications: 11:03 Drug: NS 0.9% 500 ml Route: IV; Rate: bolus; Site: right antecubital; rb1 11:40 Follow up: IV Status: Completed infusion rb1 11:21 Drug: Aspirin Chewable Tablet 324 mg Route: PO; rb1 11:42 Follow up: Response: No adverse reaction rb1 Point of Care Testing: Blood Glucose: 11: Blood Glucose: 181 mg/dL; rb1 Ranges: Critical Glucose Levels:Adult <50 mg/dl or >400 mg/dl <40 mg/dl or >180 mg/dl Disposition: 04/05/18 11:35 Hospitalization ordered by Christopher Britt for Inpatient Admission. Preliminary diagnosis are Weakness, Dehydration, Subacute Cerebrovascular Stroke. - Bed requested for Telemetry/MedSurg (Inpatient). - Status is Inpatient Admission. eb - Condition is Stable. - Problem is new. - Symptoms are unchanged. UTI on Admission? No NIH Stroke Scale - NIH Stroke Score Date: 04/05/2018 Time: 10:11 Total Score = 5 1a. Level of Consciousness (LOC) - 0(Alert) 1b. Level of Consciousness (LOC) (Year \T\ Age) - 0(Both) 1c. LOC Commands (Open \T\ Closes Eyes/Counter Sales Person) - 0(Both) 2. Best Gaze (Lateral Gaze Paresis) - 0(Normal) 3. Visual Field Loss - 0(No visual loss) 4. Facial Palsy - 1(Minor Paralysis) 5a. Left Arm: Motor (10-second hold) - 2(Drift, some effort against gravity) 5b. Right Arm: Motor (10-second hold) - 0(No drift) 6a. Left Leg: Motor (5-second hold - always test supine) - 2(Drift, some effort against gravity) 6b. Right Leg: Motor (5-second hold - always test supine) - 0(No drift) 7. Limb Ataxia (finger/nose \T\ heel/pate - test with eyes open) - 0(Absent) 8. Sensory Loss (pinprick arms/legs/face) - 0(Normal) 9. Best Language: Aphasia (description/naming/reading) - 0(No aphasia) 10. Dysarthria (speech clarity - read or repeat words) - 0(Normal) 11. Extinction and Inattention (visual/tactile/auditory/spatial/personal) - 0(No abnormality) Initials: rb1 Signatures: Dispatcher [employer] EDMS Grace Blevins RN RN dw Paulie Morales MD MD rn Barber, Rebecca, RN RN rb1 Della Moore RN RN hb Botello, Elizabeth eb Corrections: (The following items were deleted from the chart) 12:20 11:35 Hospitalization Ordered by Christopher Britt MD for Inpatient Admission. dw Preliminary diagnosis is Weakness; Dehydration; Subacute Cerebrovascular Stroke. Bed requested for Telemetry/MedSurg (Inpatient). Status is Inpatient Admission. Condition is Stable. Problem is new. Symptoms are unchanged. UTI on Admission? No. rn 13:22 12:20 04/05/2018 11:35 Hospitalization Ordered by Christopher Britt MD for eb Inpatient Admission. Preliminary diagnosis is Weakness; Dehydration; Subacute Cerebrovascular Stroke. Bed requested for Telemetry/MedSurg (Inpatient). Status is Inpatient Admission. Condition is Stable. Problem is new. Symptoms are unchanged. UTI on Admission? No. dw
--- NOTE | 2018-04-05 11:36 | ER ---
Nurse's Notes [facility] Name: Bryon Hopson Age: 72 yrs Sex: Male : 1945 Arrival Date: 04/05/2018 Time: 09:53 Bed 19 Private MD: Christopher Britt Diagnosis: Weakness;Dehydration;Subacute Cerebrovascular Stroke Presentation: 04/05 10:11 Presenting complaint: Patient states: Generalized weakness, nausea, and dizziness since hb yesterday morning. Hx CVA last January with residual left sided weakness. Pt reports he fell three times yesterday, denies LOC or injuries. Transition of care: patient was not received from another setting of care. 10:11 Method Of Arrival: Ambulatory hb 10:11 Acuity: MERE 3 hb 10:11 Onset of symptoms was April 04, 2018. Risk Assessment: Do you want to hurt yourself or rb1 someone else? Patient reports no desire to harm self or others. Initial Sepsis Screen: Does the patient meet any 2 criteria? No. Patient's initial sepsis screen is negative. Does the patient have a suspected source of infection? No. Patient's initial sepsis screen is negative. Care prior to arrival: None. Triage Assessment: 10:11 General: Appears in no apparent distress. comfortable, Behavior is calm, cooperative, rb1 Denies fever. Pain: Denies pain. Neuro: Level of Consciousness is awake, alert, obeys commands, Oriented to person, place, time, situation. Neuro: Reports weakness in generalized Pt. has left sided weakness from a Stroke in January, it is his normal.. Cardiovascular: Capillary refill < 3 seconds is brisk in bilateral fingers. Respiratory: Airway is patent Respiratory effort is even, unlabored, Respiratory pattern is regular, symmetrical. GI: Reports nausea. : No signs and/or symptoms were reported regarding the genitourinary system. Derm: Skin is dry, Skin is normal, Skin temperature is warm. Musculoskeletal: Range of motion: intact in all extremities. Historical: - Allergies: 10:33 No Known Allergies; hb - Home Meds: 10:11 vision shield [Active]; one a day [Active]; gabapentin 300 mg oral cap 1 cap 4 times a rb1 day [Active]; glipizide 5 mg Oral tab 1 tab 4 times a day [Active]; metformin 500 mg Oral tab 2 tabs 2 times per day [Active]; ramipril 10 mg Oral cap 1 cap once daily [Active]; Eye Drops ophthalmic [Active]; latanoprost 0.005 % ophthalmic drop 1 drop once daily [Active]; artificial tears(hypromellose) 0.4 % Opht drop [Active]; - PMHx: 10:33 Diabetes - NIDDM; Hypertension; CVA - left sided weakness; hb - PSHx: 10:11 bilateral eyes; Appendectomy; rb1 - Immunization history:: Adult Immunizations up to date. - Family history:: not pertinent. - Social history:: Smoking status: Patient/guardian denies using tobacco. - Ebola Screening: : Patient negative for fever greater than or equal to 101.5 degrees Fahrenheit, and additional compatible Ebola Virus Disease symptoms. - Hospitalizations: : No recent hospitalization is reported. Screenin:25 Patient has been NPO before screening. The patient is alert, able to follow commands. rb1 The patient does not exhibit slurred or garbled speech The patient is not exhibiting difficulty speaking. The patient does not exhibit difficulty understanding words. The patient is able to swallow own secretions with no drooling or need for suction. Patient tolerated one teaspoon of water. No drooling, immediate coughing, gurgling, or clearing of the throat was noted. The patient tolerated 90mL of water. No drooling, immediate coughing, gurgling, or clearing of the throat was noted. The patient passed the bedside swallow screening. Oral medications may be given as ordered. Contact Physician for further diet orders. Provider notified of bedside swallow screening results: Paulie Morales MD. 10:33 Abuse screen: Denies threats or abuse. Denies injuries from another. Nutritional hb screening: No deficits noted. Tuberculosis screening: No symptoms or risk factors identified. Fall Risk Total Dela Cruz Fall Scale indicates Low Risk Score (25-44 pts). Fall prevention measures have been instituted. Side Rails Up X 2 Frequent Obs/Assesments occuring Family Present and informed to notify staff if they need to leave bedside As available Patient and Family Educated on Fall Prevention Program and strategies. Assessment: 10:11 General: See triage assessment. rb1 10:35 Reassessment: Pt. went to CT. rb1 11:00 Reassessment: Patient appears in no apparent distress at this time. Patient and/or rb1 family updated on plan of care and expected duration. Pain level reassessed. Patient is alert, oriented x 3, equal unlabored respirations, skin warm/dry/pink. Family at bedside. 11:07 Reassessment: Patient appears in no apparent distress at this time. No changes from rb1 previously documented assessment. 12:00 Reassessment: Patient appears in no apparent distress at this time. Patient and/or rb1 family updated on plan of care and expected duration. Pain level reassessed. Patient is alert, oriented x 3, equal unlabored respirations, skin warm/dry/pink. 12:40 Reassessment: Called to give report but was told they would call me back. rb1 12:51 Reassessment: Gave report to JENINFER Vance. Information from the SBAR was given. All rb1 questions asked and answered. 12:58 Reassessment: Patient appears in no apparent distress at this time. No changes from rb1 previously documented assessment. Family at bedside. Patient denies pain at this time. Vital Signs: 10:15 BP 175 / 85; Pulse 77; Resp 15; Temp 98.1; Pulse Ox 99% on R/A; Pain 0/10; hb 10:30 BP 132 / 83; Pulse 69; Resp 18; Pulse Ox 100% ; rb1 11:30 BP 147 / 85; Pulse 67; Resp 18; Pulse Ox 100% on R/A; rb1 12:00 BP 151 / 81; Pulse 70; Resp 19; Pulse Ox 100% on R/A; rb1 12:58 BP 149 / 83; Pulse 72; Resp 18; Pulse Ox 99% on R/A; Pain 0/10; rb1 NIH Stroke Scale Scores: 10:11 NIHSS Score: 5 rb1 ED Course: 09:53 Patient arrived in ED. as 09:54 Christopher Britt MD is Private Physician. as 09:55 Paulie Morales MD is Attending Physician. rn 10:09 Sudha Uribe, JENNIFER is Primary Nurse. rb1 10:11 Inserted saline lock: 22 gauge in right antecubital area, using aseptic technique. rb1 Blood collected. 10:32 Triage completed. hb 10:32 Arm band placed on right wrist. hb 10:33 Patient has correct armband on for positive identification. Placed in gown. Bed in low hb position. Call light in reach. Side rails up X 1. 10:51 CT Head Brain wo Cont In Process Unspecified. EDMS 11:12 EKG done, by field installation technician. reviewed by Paulie Morales MD. at1 11:35 Christopher Britt MD is Hospitalizing Provider. rn 13:22 No provider procedures requiring assistance completed. Patient admitted, IV remains in rb1 place. Administered Medications: 11:03 Drug: NS 0.9% 500 ml Route: IV; Rate: bolus; Site: right antecubital; rb1 11:40 Follow up: IV Status: Completed infusion rb1 11:21 Drug: Aspirin Chewable Tablet 324 mg Route: PO; rb1 11:42 Follow up: Response: No adverse reaction rb1 Point of Care Testing: Blood Glucose: 11:01 Blood Glucose: 181 mg/dL; rb1 Ranges: Outcome: 11:35 Decision to Hospitalize by Provider. rn 13:22 Patient left the ED. eb 13:22 Admitted to Med/surg accompanied by tech, family with patient, via stretcher, room 215, rb1 with chart, Report called to JENNIFER Vance 13:22 Condition: stable 13:22 Instructed on the need for admit. NIH Stroke Scale - NIH Stroke Score Date: 04/05/2018 Time: 10:11 Total Score = 5 1a. Level of Consciousness (LOC) - 0(Alert) 1b. Level of Consciousness (LOC) (Year \T\ Age) - 0(Both) 1c. LOC Commands (Open \T\ Closes Eyes/Survey And Mapping Technician) - 0(Both) 2. Best Gaze (Lateral Gaze Paresis) - 0(Normal) 3. Visual Field Loss - 0(No visual loss) 4. Facial Palsy - 1(Minor Paralysis) 5a. Left Arm: Motor (10-second hold) - 2(Drift, some effort against gravity) 5b. Right Arm: Motor (10-second hold) - 0(No drift) 6a. Left Leg: Motor (5-second hold - always test supine) - 2(Drift, some effort against gravity) 6b. Right Leg: Motor (5-second hold - always test supine) - 0(No drift) 7. Limb Ataxia (finger/nose \T\ heel/pate - test with eyes open) - 0(Absent) 8. Sensory Loss (pinprick arms/legs/face) - 0(Normal) 9. Best Language: Aphasia (description/naming/reading) - 0(No aphasia) 10. Dysarthria (speech clarity - read or repeat words) - 0(Normal) 11. Extinction and Inattention (visual/tactile/auditory/spatial/personal) - 0(No abnormality) Initials: rb1 Signatures: Dispatcher [employer] Kalie Worthington Roman, MD MD rn Lissette villareal, plant engineering supervisor EKG Tat1 Sudha Uribe RN RN rb1 Della Moore RN RN hb Botello, Elizabeth eb
--- NOTE | 2018-04-05 13:52 | EKG ---
Test Date: 2018-04-05 Test Time: 10:54:34 [employer]: RAYMUNDO MEASUREMENT RESULTS: Intervals: Rate: 67 IA: 162 QRSD: 104 QT: 414 QTc: 437 [place]: P: 23 IA: 162 QRS: -10 T: -7 INTERPRETIVE STATEMENTS: Normal sinus rhythm Inferior infarct, age undetermined Abnormal ECG Compared to ECG 01/12/2018 19:24:00 Myocardial infarct finding now present Electronically Signed On 04-05-18 13:51:37 CDT by Dean Cardenas
[2018-04-05] MEDS ORDERED: ATORVASTATIN 20 MG TAB PO ONE (14:49)
[2018-04-05] MEDS ORDERED: CLOPIDOGREL 75 MG TABLET PO ONE (14:49)
[2018-04-05] MEDS: NA CHLORIDE 0.9% 1,000 ML IV SCH ×2 (14:57→21:07)
[2018-04-05] MEDS: INSULIN -REGULAR HUMAN 50 UNIT/0.5 ML ML SQ SCH ×2 (16:05→21:07)
[2018-04-05 17:47] LABS: Urine Appearance CLEAR; Urine Bilirubin NEGATIVE (NEG); Urine Blood NEGATIVE (NEG); Urine Color YELLOW; Urine Glucose 1+ (NEG); Urine Protein TRACE (NEG); Urine Urobilinogen 0.2 mg/dL (0.2-1.0)
[2018-04-05 17:55] LABS: Urine Microscopic Reflex ORDER UMIC
[2018-04-05 18:08] LABS: Urine Bacteria <20 /HPF (NONE SEEN); Urine Culture Reflex Order NOT NEEDED; Urine Mucus 1+ /HPF (NONE SEEN); Urine RBC <5 /HPF (NONE SEEN)
--- NOTE | 2018-04-06 04:58 | HP ---
Date of Admission: 04/05/2018 Entrance Complaint: Fatigue, decreased function of the left upper extremity. History Of Present Illness: The patient states he was his usual self since his post CVA a number of months ago which had stabilized until a few days prior to this admission and became more coordinated, anorectic, and actually fell. He was seen by his daughter at the house today. She brought him to [facility] emergency room. He stated that he has decreased mobility and motion of the left arm was more pron ounced and diagnosis of CVA probable subacute was made, and he was admitted for further care. Hypert ension, controlled. Past History: The patient has a long history of NIDDM, under relatively good control. As mentioned, he had a CVA with some remnants of CVA in the left upper and lower extremities. Family History: Noncontributory. Social History: Nonsmoker, nondrinker. Physical Examination: General: The patient is a thin elderly male, fully orientated, decreased motion in the left thumb of his arm in all directions and fine motor decreased significantly. Head and Neck: Normocephalic. Pupils are equal and reactive to light and accommodation. Fundi negativ e. Trachea midline. Thyroid not palpable. ENT: Negative. Chest: Clear to P and A. Cardiovascular: PMI in midclavicular line. Heart: Sounds normal. Peripheral pulses are present and equal bilaterally. Abdomen: No organomegaly. Bowel sounds normal. Extremities: Right-sided extremities are normal. Left side as mentioned above. Rectal: Deferred. Impression: Subacute cerebrovascular accident, [id number] diabetes mellitus, good control . Plan: The patient will be admitted, is given chewable aspirin, and maintained on his usual medicatio n of Plavix, and blood pressure medicine as well as statins. Consultation was obtained with his neur ologist. He had a borderline creatinine, and therefore, his MRI will be rescheduled for tomorrow, po ssibly with hydration this will improve. HR/MODL Voice ID: [id number]
[2018-04-06 05:56] LABS: Potassium 3.7 mmol/L (3.5-5.1); Thyroid Stimulating Hormone 1.83 uIU/mL (0.36-3.74)
[2018-04-06] MEDS: INSULIN -REGULAR HUMAN 50 UNIT/0.5 ML ML SQ SCH ×4 (07:30→21:00)
[2018-04-06] MEDS ORDERED: CLOPIDOGREL 75 MG TABLET PO SCH (09:00)
[2018-04-06] MEDS: ENOXAPARIN 40 MG/0.4 ML SQ SCH (09:50)
[2018-04-06] MEDS: CLOPIDOGREL 75 MG TABLET PO SCH (09:50)
[2018-04-06] MEDS: AMLODIPINE 10 MG TAB PO SCH (09:50)
--- NOTE | 2018-04-06 10:36 | RAD REPORT ---
EXAM DESCRIPTION: Neha Puente (2 Views)04/06/2018 9:18 am CLINICAL HISTORY: Cough COMPARISON: December 2017 FINDINGS: The lungs appear clear of acute infiltrate. The heart is normal size IMPRESSION: No acute abnormalities displayed
--- NOTE | 2018-04-06 11:33 | ECHO ---
HEIGHT: 5 ft 8 in WEIGHT: 146 lb 0 oz DATE OF STUDY: 04/06/[address]: Faisal Hensley MD 2-DIMENSIONAL: YES M.MODE: YES DOPPLER: YES COLOR FLOW: YES TDS: YES PORTABLE: NO DEFINITY: NO BUBBLE STUDY: NO DIAGNOSIS: STROKE CARDIAC HISTORY: CATHERIZATION: NO SURGERY: NO PROSTHETIC VALVE: NO PACEMAKER: NO MEASUREMENTS (cm) DIASTOLIC (NORMALS) SYSTOLIC (NORMALS) IVSd 1.3 (0.6-1.2) LA Diam 4.1 (1.9-4.0) LVEF 62% LVIDd 3.7 (3.5-5.7) LVIDs 2.5 (2.0-3.5) %FS 33% LVPWd 1.3 (0.6-1.2) Ao Diam 2.9 (2.0-3.7) 2 DIMENSIONAL ASSESSMENT: RIGHT ATRIUM: NORMAL LEFT ATRIUM: DILATED RIGHT VENTRICLE: NORMAL LEFT VENTRICLE: NORMAL TRICUSPID VALVE: NORMAL MITRAL VALVE: NORMAL PULMONIC VALVE: NORMAL AORTIC VALVE: NORMAL PERICARDIAL EFFUSION: NONE AORTIC ROOT: NORMAL LEFT VENTRICULAR WALL MOTION: NORMAL DOPPLER/COLOR FLOW: TRACE TRICUSPID REGURGITATION. COMMENTS: TRACE TRICUSPID REGURGITATION. NORMAL LEFT VENTRICULAR EJECTION FRACTION AND SIZE. NO WALL MOTION ABNORMALITY. TECHNOLOGIST: Alexandra MO
[2018-04-06] MEDS ORDERED: AMLODIPINE 10 MG TAB PO ONE (14:48)
--- NOTE | 2018-04-06 15:01 | RAD REPORT ---
EXAM DESCRIPTION: MRI - Stroke Protocol - 04/06/2018 2:28 pm CLINICAL HISTORY: Subacute CVA, abnormal CT COMPARISON: CT head April 05, 2018, MRI December 2017 TECHNIQUE: Sagittal T1- weighted images were obtained along with PD/heavily T2- weighted and T2-FLAI R images. Axial DWI and ADC mapping sequences were also obtained. Coronal heavily T2- weighted images were obtained. MRA head imaging performed with source images and 3D reconstruction images reviewed. MRA neck imaging was performed with source and 3D reconstruction imaging reviewed. Post contrast T1 i maging was performed. A 15 ml GD dosage was utilized. FINDINGS: Diffusion-weighted imaging shows multiple punctate foci of cortical signal abnormality in the right frontal and parietal lobes. Are larger 3 x 2 centimeter area of abnormal diffusion signal i s present in the periventricular white matter right parietal lobe. This cluster of multiple signal ab normalities is the correlate to the recent CT finding. There is a small 5 mm area of diffusion signal abnormality in the anterior aspect of the external capsule on the right. There is a 4 mm area of abn ormal diffusion signal in the left cerebellum near the cerebellar peduncle. These signal abnormalitie s all have hypointense signal on ADC mapping supporting acute nonhemorrhagic infarction. Hyperintense T1 and T2 signal is present in the right lentiform nucleus. This signal abnormality is n ot acute infarction change. There is no edema or shift of midline structures. No extra-axial fluid co llections. Fuentes-matter/white matter junction is preserved. The right lentiform nucleus signal abnorma lity on T1 imaging does not enhance on the postcontrast imaging. Postcontrast imaging shows no suspic ious enhancement pattern. Mastoid air cells and paranasal sinuses are clear. No globe or orbit abnormality. Aortic arch is 3 vessel configuration. No origin stenosis. Left vertebral artery origin is normal. Ri ght common carotid artery shows no significant finding. Approximately 30% stenoses seen at the common carotid junction with the right internal carotid and left external carotid. Right internal carotid a rtery is extremely tortuous. Left common carotid artery shows no significant finding. There is approx imately 60- 70% stenosis at the left carotid bulb. Left ICA is tortuous. Right vertebral artery truncates shortly after origin. Little identifiable right vertebral artery blo od flow spleen. A more normal but small right vertebral artery reconstitutes around the C1 level. No left vertebral artery stenosis. Basilar artery is tortuous but non stenotic. Mild atherosclerotic rosario nges are present in the far peripheral branches of the left middle cerebral artery. No significant bi lateral anterior cerebral artery finding. Patient has a dominant posterior communicating artery on th e left without significant posterior cerebral artery atherosclerotic change. The right middle cerebral artery abruptly truncates at the M1 - M2 branch point. Substantially reduce d blood flow seen in the M2/M3 branches. IMPRESSION: Approximately 3 x 2 centimeter area of acute nonhemorrhagic infarction is present in the right parietal periventricular white matter. There are numerous areas of cortical infarction scatter ed in the right cerebral hemisphere as detailed. The patient has abrupt truncation of the right middle cerebral artery at the M1-M2 junction. This mignon ncation and M1 disease could account for the infarction pattern of the right cerebral hemisphere. Patient has a punctate area of infarction in the left cerebellum which would represent a different va scular distribution. Findings may indicate a thromboembolic process. Most of the right vertebral artery is absent. Vessel reconstitutes around the C1 level. Approximately 60-70% stenosis estimated at the left carotid bulb. Right common carotid -internal cordova tid disease is mild.
[2018-04-06] MEDS: NA CHLORIDE 0.9% 1,000 ML IV SCH ×2 (16:18→21:21)
--- NOTE | 2018-04-06 18:33 | RAD REPORT ---
EXAM DESCRIPTION: RAD - Barium Swallow Modified - 04/06/2018 4:50 pm CLINICAL HISTORY: Aspiration, difficulty swallowing COMPARISON: None. TECHNIQUE: The patient was given liquid, semi-solid and solid forms of barium. Lateral view fluorosc opic imaging was performed in conjunction with speech pathology service. FINDINGS: A total of 29 cine loop acquisitions obtained. Fluoro time was 4 minutes 16 seconds. Aspiration was observed on the thin liquid barium. Patient also had laryngeal penetration with thin a nd honey forms of barium. Valleculae and piriform sinus residual contrast noted. IMPRESSION: Aspiration and laryngeal penetration occurred. Findings are further detailed above and o n speech pathology report.
[2018-04-06 21:15] LABS: RPR Titer ND
[2018-04-06 21:35] LABS: Ferritin 200.6 ng/mL (26-388)
[2018-04-06 21:48] LABS: RPR (Rapid Plasma Reagin) NON-REACT (NON-REACT)
--- NOTE | 2018-04-07 00:35 | PN ---
Reason: Stroke. Interval History: Brain MRI demonstrates a new infarct right cerebrum as well as a smaller infarct i n the left cerebellum. Vertebral is poorly visualized, but that is not a new finding. Truncation M1 -2 right MCA with poor distal flow. Overall pattern is a little more suggestive of cardioembolic. Julia villarreal does have a left carotid stenosis that is asymptomatic. He passed a swallow study, although he davis s need to stay on swallow precautions. Review of telemetry reveals brief 2 beats of ventricular arrh ythmia. The patient denies feeling his heart racing during or preceding this current event. Neverth eless, I think prudent to obtain a cardiology consult for possible arrhythmia. Echo was normal other than a dilated left atrium. He may be experiencing intermittent atrial fibrillation and not realizi ng in which case his long-term anticonvulsant regimen would likely need to be changed. With regard t o the anemia, we will check some iron studies. We will check an CECIL and an RPR as well. I think he will need to stay in the hospital through the weekend to sort through all of the aforementioned possi bilities. Physical Examination: Vital Signs: Temperature 97.3, pulse 82, respiratory rate 18, blood pressure 180/78. General: He is awake, alert, oriented. NEURO: Moderate dysarthria, decreased left nasolabial fold. Left hemiparesis, unchanged, 4/5. No c ortical extinction. No [id number]-[id number] ataxia. Despite the known cerebellar lesions, the patient has been able to ambulate with physical therapy. Impression: Cerebral infarction, multiple, recurrent. Plan: As alluded to cardiology evaluation, additional labs, and investigation into the anemia. Reha b evaluation has been requested as well. We will continue to follow with you. PHONG Voice ID: [id number] Report ID: [id number]
--- NOTE | 2018-04-07 01:05 | CON ---
Date of Consultation: 04/05/2018 Reason: Stroke. History: A 72-year-old gentleman who has a history of hypertension and diabetes and hyperlipidemia, prior stroke December of this year. We had seen him in the hospital then. Came to the emergency depart ment with about 36 hours of gait difficulties, worsening left-sided weakness. The patient states in middle of the night about 36 hours ago, he felt vertiginous and threw up once, and since then, he has been unable to walk properly. He was not able to take any fluids by mouth yesterday because he was unable to walk. He came to the emergency department where a CT scan of the brain demonstrates a new area of hypodensity approximately 2.2 cm on the right. He was admitted to the hospital. He does not really feel any better. He does not really feel any worse. He states he has been compliant with pr s medication. Consultation was requested. Past Medical History: As alluded to. Medications: Routinely, Altace, metformin, Glucotrol, gabapentin, Plavix, Lipitor, Norvasc. Social History: The patient is normally independent with activities of daily living. Family History: Negative. Review of Systems: General: No headache. Eyes: Negative. Ears, Nose, Throat: Dysarthria. Cardiovascular: Hypertension. Pulmonary: Negative. GI: Nausea now resolved. : Negative. Musculoskeletal: Arthralgias. Neurologic: As noted. Psychiatric: Negative. Endocrine: Diabetes. Hematologic: Negative. Physical Examination: Vital Signs: He is afebrile. Vitals are stable. General: He is awake, alert, oriented. HEENT: Pupils reactive. Ocular motion full. Sanchez full. Decreased left nasolabial fold. No apha pierce. Moderate dysarthria. Neuro: Examination of the extremities reveals a 4/5 left hemiparesis with bilateral interphalangeal weakness. No cortical extinction despite the abnormality in the right parietal region. Reflexes are 1/4. Left toe was upgoing. Cerebellar exam demonstrates no ataxia. Pertinent Labs: Hemoglobin 9.9, white count 6.7, creatinine 1.7, which is a notable elevation for hi m. Impression: Probable recurrent cerebral infarction. Plan: DVT prophylaxis. Repeat lipids. Repeat sedimentation rate which was elevated in the past. C ontinue Plavix. Brain MRI and echo are pending for tomorrow. We will continue to follow with you. BK/MODL Voice ID: [id number] Report ID: [id number]
[2018-04-07 06:34] LABS: Absolute Lymphocytes (CBC) 1.6 K/uL (0.7-4.9); Absolute Monocytes 0.5 K/uL (0.1-1.3); Absolute Neutrophil 3.3 K/uL (1.8-8.0); Basophils % 0.9 % (0-1.3); Eosinophils % 2.4 % (0-4.4); Hematocrit 26.2 % (39.6-49.0); Lymphocytes % 28.5 % (15.3-44.8); MCH 31.2 pg (27.0-35.0); MCV 89.6 fL (80-100); MPV 8.3 fL (7.6-11.3); RBC Red Blood Cell Count 2.93 M/uL (4.33-5.43)
[2018-04-07 06:35] LABS: Albumin 3.4 g/dL (3.4-5.0); Bilirubin Total 0.7 mg/dL (0.2-1.0); Potassium 3.8 mmol/L (3.5-5.1)
[2018-04-07] MEDS: INSULIN -REGULAR HUMAN 50 UNIT/0.5 ML ML SQ SCH ×4 (07:30→21:16)
[2018-04-07] MEDS: CLOPIDOGREL 75 MG TABLET PO SCH (09:22)
[2018-04-07] MEDS: AMLODIPINE 10 MG TAB PO SCH (09:23)
[2018-04-07] MEDS: ENOXAPARIN 40 MG/0.4 ML SQ SCH (09:23)
--- NOTE | 2018-04-07 12:36 | CON ---
Date of Consultation: 04/07/[address] to Dr. Britt's service on 04/05/2018. The patient has been seen on 04/07/2018 . Reason For Consultation: CVA subacute, possible atrial fibrillation. History Of Present Illness: Mr. Hopson is a 72-year-old has a history of diabetes for years, hyper tension, dyslipidemia, had a CVA in December 2017 and came in with another subacute CVA by CT scan. He has a normal EKG, normal echocardiogram, no evidence of any atrial fibrillation, but there was a ques tion that maybe this was causing his recurrent CVAs. He is on Plavix at home, Neurology is following him. The patient denied any cardiac symptoms and he denied any palpitations. Past Medical History: As stated above. Allergies: NONE. Review of Systems: Negative. Social History: Negative. Family History: Noncontributory. Medications: At home include ramipril, Norvasc, Lipitor, Plavix, Neurontin, glipizide, and metformin . Physical Examination: Vital Signs: Stable. He was afebrile. He was slightly weak on the left side. Blood pressure was 1 80/87, creatinine is 1.2, hemoglobin 9.1, glucose 202. HEENT: Negative. Neck: Supple. No bruit, lymphadenopathy, JVD, or thyromegaly. Chest: Clear to auscultation and percussion. Cardiac: Exam revealed a regular rhythm and rate. No murmurs, gallops, or rubs. Abdomen: Benign. Extremities: Revealed no clubbing, cyanosis, or edema. Diagnostic Data: Listed earlier. Impression And Plan: Recurrent cerebrovascular accidents on Plavix only. I would certainly recommen d adding a baby aspirin. I do not have any evidence of atrial fibrillation on telemetry or by sympto ms and I certainly would not anticoagulate him quite yet. I think we need to do an outpatient event monitor on him and see if we can catch any arrhythmias. His echo is normal. His EKG is normal. His hypertension certainly could be the reason why he is having recurrent CVAs and that need to be faye r controlled. Certainly increasing the Norvasc or the ramipril may help or maybe even adding a low-d ose beta-dominga. He has dyslipidemia, controlled on Lipitor. His diabetes is fairly well controlle d on glipizide and metformin. He does have diabetic neuropathy for which he takes Neurontin. I will discuss the case further with Dr. Britt, but as far as I am concerned, he can go home whenever it is okay with Dr. Britt and Dr. Hensley. WHITNEY/ONEYDA Voice ID: [id number] Report ID: [id number]
[2018-04-08 05:07] LABS: Absolute Lymphocytes (CBC) 1.6 K/uL (0.7-4.9); Absolute Monocytes 0.5 K/uL (0.1-1.3); Absolute Neutrophil 2.7 K/uL (1.8-8.0); Basophils % 0.5 % (0-1.3); Eosinophils % 2.8 % (0-4.4); Hematocrit 25.8 % (39.6-49.0); Lymphocytes % 31.4 % (15.3-44.8); MCH 31.3 pg (27.0-35.0); MCV 89.8 fL (80-100); MPV 8.2 fL (7.6-11.3); Monocytes % 10.8 % (3.3-12.3); RBC Red Blood Cell Count 2.88 M/uL (4.33-5.43)
[2018-04-08] MEDS: INSULIN -REGULAR HUMAN 50 UNIT/0.5 ML ML SQ SCH ×4 (07:30→21:26)
[2018-04-08] MEDS: ENOXAPARIN 40 MG/0.4 ML SQ SCH (09:07)
[2018-04-08] MEDS: CLOPIDOGREL 75 MG TABLET PO SCH (09:09)
[2018-04-08] MEDS: AMLODIPINE 10 MG TAB PO SCH (09:10)
[2018-04-08] MEDS: ASPIRIN 81 MG CHEWABLE TABLET PO SCH (09:11)
--- NOTE | 2018-04-08 16:26 | PN ---
Date of Progress Note: 04/08/2018 Time Seen: 1440. Reason: Stroke. Interval History: The patient is stable, improving. Does not like using the thickener for liquids. Seen by Cardiology. He did not recommend empiric anticoagulation. Outpatient monitoring was sugges francisco j, which seems quite advisable. Blood pressure is better this afternoon. Ambulating with therapy. RPR was negative. Iron studies were normal. Unclear about the anemia, the cause might benefit fro m GI evaluation or hematology evaluation. Physical Examination: Vital Signs: He is awake, alert, oriented. HEENT: Pupils reactive. Ocular motion full. Sanchez full. Decreased left nasolabial fold. Extremities: Bilateral interphalangeal weakness consistent with ulnar neuropathy, long-standing. Le ft hemiparesis improved, 4+ in the arm, 5- in the leg. Sensation decreased symmetrically distally. Reflexes trace. Upgoing toe on the left. Pertinent Labs: RPR as noted. Hemoglobin 9 today. Renal function stable, 1.2 yesterday. RPR negat milo. CECIL pending. Impression: Recurrent cerebral infarction. Plan: Dual anti-platelet therapy. Continue statin. Consider hematology or GI evaluation for the an emia. Repeat comprehensive metabolic panel in a.m. We will continue to follow with you. CHRISTY/ONEYDA Voice ID: [id number] Report ID: [id number]
--- NOTE | 2018-04-08 16:49 | PN ---
Date of Progress Note: 04/07/2018 The patient continues to improve as far as motion and coordination of his arm. Aspirin is added to h is regimen. He is seen by cardiology, who felt that the anticoagulation should be maintained at pres ent level and suggested the use of a monitor as an outpatient. This will be done and a consult for r ehab will be instituted as well. His vital signs seem stable and he perhaps can be moved to rehab be ginning of the week. HR/MODL Voice ID: [id number] Report ID: [id number]
[2018-04-09 05:19] LABS: Absolute Lymphocytes (CBC) 1.6 K/uL (0.7-4.9); Absolute Monocytes 0.4 K/uL (0.1-1.3); Absolute Neutrophil 2.5 K/uL (1.8-8.0); Basophils % 0.9 % (0-1.3); Eosinophils % 3.5 % (0-4.4); Hematocrit 26.3 % (39.6-49.0); Lymphocytes % 33.3 % (15.3-44.8); MCH 31.3 pg (27.0-35.0); MCV 89.4 fL (80-100); MPV 8.2 fL (7.6-11.3); Monocytes % 9.5 % (3.3-12.3); RBC Red Blood Cell Count 2.95 M/uL (4.33-5.43)
[2018-04-09 05:42] LABS: Albumin 3.2 g/dL (3.4-5.0); Bilirubin Total 0.6 mg/dL (0.2-1.0); Potassium 3.5 mmol/L (3.5-5.1); Protein, Total 7.2 g/dL (6.4-8.2)
[2018-04-09] MEDS: INSULIN -REGULAR HUMAN 50 UNIT/0.5 ML ML SQ SCH ×4 (07:30→20:57)
[2018-04-09] MEDS: CLOPIDOGREL 75 MG TABLET PO SCH (09:33)
[2018-04-09] MEDS: AMLODIPINE 10 MG TAB PO SCH (09:33)
[2018-04-09] MEDS: ENOXAPARIN 40 MG/0.4 ML SQ SCH (09:34)
[2018-04-09] MEDS: ASPIRIN 81 MG CHEWABLE TABLET PO SCH (09:34)
--- NOTE | 2018-04-09 14:44 | PN ---
Date of Progress Note: 04/09/2018 Time Seen: 1250. Reason: Stroke. Interval History: The patient is stable. Hemoglobin stable. Creatinine stable. Improving with reg wendy to the paresis. No new problems. Blood pressure remains elevated. Objective: Vital Signs: He is awake, alert, oriented. Blood pressure 181/86 today. Neurologic: Decreased left nasolabial fold. Ocular motion full. Sanchez full. Left hemiparesis unc hanged. 4+ in the arm, 5- in the legs. Upgoing toe on the left. No cortical extinction on sensory exam. Pertinent Laboratory Data: Creatinine 1.2. Hemoglobin stable at 9.2. Blood glucose 194. Impression: Cerebral infarction, stable. Plan: Restart IZABELA inhibitor tomorrow. Altace 5 mg daily. We will continue to follow with you. CHRISTY/ONEYDA Voice ID: [id number] Report ID: [id number]
[2018-04-10] MEDS: INSULIN -REGULAR HUMAN 50 UNIT/0.5 ML ML SQ SCH ×4 (07:30→21:11)
[2018-04-10] MEDS: ENOXAPARIN 40 MG/0.4 ML SQ SCH (09:55)
[2018-04-10] MEDS: ASPIRIN 81 MG CHEWABLE TABLET PO SCH (09:55)
[2018-04-10] MEDS: RAMIPRIL 5 MG CAP PO SCH (09:55)
[2018-04-10] MEDS: CLOPIDOGREL 75 MG TABLET PO SCH (09:55)
[2018-04-10] MEDS: AMLODIPINE 10 MG TAB PO SCH (09:55)
--- NOTE | 2018-04-10 18:27 | PN ---
Date of Progress Note: 04/09/2018 The patient continues to improve both symptomatically and clinically. He has mobilized much better. His arm movement is much more coordinated and his appetite is slowly improved. Awaiting an insuranc e okay to transfer to rehab. HR/MODL Voice ID: [id number] Report ID: [id number]
[2018-04-11 02:00] VITALS: BMI 20.5
[2018-04-11] MEDS: INSULIN -REGULAR HUMAN 50 UNIT/0.5 ML ML SQ SCH ×4 (07:30→21:00)
[2018-04-11] MEDS: CLOPIDOGREL 75 MG TABLET PO SCH (08:08)
[2018-04-11] MEDS: AMLODIPINE 10 MG TAB PO SCH (08:08)
[2018-04-11] MEDS: RAMIPRIL 5 MG CAP PO SCH (08:09)
[2018-04-11] MEDS: ENOXAPARIN 40 MG/0.4 ML SQ SCH (08:09)
[2018-04-11] MEDS: ASPIRIN 81 MG CHEWABLE TABLET PO SCH (08:09)
--- NOTE | 2018-04-11 18:55 | PN ---
Date of Progress Note: 04/10/2018 Subjective: The patient continued to improve. His immobilization is improved significantly as well as his appetite and intake. Still has some more problems with his left arm. However, overall nayeli barrios has improved, so that he could either be transferred to rehab and/or go home. According to the f carmelo, they will have somebody with him as this was a significant factor as he lives by himself. John Paul brand will be made by the kennedy HR/ONEYDA Voice ID: [id number] Report ID: [id number]
[2018-04-12] MEDS: INSULIN -REGULAR HUMAN 50 UNIT/0.5 ML ML SQ SCH ×3 (07:30→16:58)
[2018-04-12] MEDS: ENOXAPARIN 40 MG/0.4 ML SQ SCH (09:24)
[2018-04-12] MEDS: CLOPIDOGREL 75 MG TABLET PO SCH (09:25)
[2018-04-12] MEDS: ASPIRIN 81 MG CHEWABLE TABLET PO SCH (09:25)
[2018-04-12] MEDS: AMLODIPINE 10 MG TAB PO SCH (09:26)
[2018-04-12] MEDS: RAMIPRIL 5 MG CAP PO SCH (09:27)
[2018-04-12 15:57] VITALS: O2SAT 97
[2018-04-12 17:57] VITALS: BP 135/77; TEMP 97.6
--- NOTE | 2018-04-12 19:30 | PN ---
Date of Progress Note: 04/11/2018 The patient continues to improve. Mobilization has significantly improved. His coordination of his arm is better, although it is still somewhat impaired. His eating has improved as well. He has been turned down for a transfer to rehab, the possibility of SNF versus home with home health was conside red. We will talk to his family tomorrow and discharge him accordingly. HR/MODL Voice ID: [id number] Report ID: [id number]
--- NOTE | 2018-04-13 19:01 | PN ---
Date of Progress Note: 04/12/2018 Subjective: The patient continues to improve. He is walking much better. Still have some balance p roblems. However, overall condition is significantly improved. I feel since he was turned down for rehab, has preference, I think it would be just fines to go home with family members with him. He th erefore will be discharged to follow up with me in 1 week. HR/MODL Voice ID: [id number] Report ID: [id number]
== END 2018-04-12 17:15 | disposition home health service (06) | DRG 65 ==
LOC: ER 09:51 → 2ND 11:35
PROVIDERS: ADMIT Family Medicine; ATTEND Family Medicine
DX: I63.9 Cerebral infarction, unspecified (principal); G81.94 Hemiplegia, unspecified affecting left nondominant side; E11.42 Type 2 diabetes mellitus with diabetic polyneuropathy; I10 Essential (primary) hypertension; E78.5 Hyperlipidemia, unspecified; Z79.84 Long term (current) use of oral hypoglycemic drugs; Z79.02 Long term (current) use of antithrombotics/antiplatelets; Z86.73 Personal history of transient ischemic attack (TIA), and cerebral infarction without residual deficits; R29.705 NIHSS score 5; E86.0 Dehydration
CPT/HCPCS: 36415; 70450; 70544; 70549; 70553; 71046; 74230; 80048; 80053; 80061; 80076; 81003; 81015; 82550; 82553; 82728; 82962; 83540; 83690; 83735; 84443; 84466; 84484; 85025; 85610; 85652; 85730; 86038; 86592; 93005; 93306; 96360; 97163; 99285; A9577; J1650; J7030

== ENCOUNTER 2019-09-24 20:10 | Emergency (ER) | payer OTHER ==
--- OUTSIDE RECORDS SUMMARY | 2019-09-24 20:13 | XMS REPORT ---
:1945 [facility] Address [address] [place] [address] Dr. Holbrook [address] [place] [id number] Care Team Providers Name Role Phone Unavailable Unavailable Unavailable Problems This patient has no known problems. Allergies, Adverse Reactions, Alerts This patient has no known allergies or adverse reactions. Medications This patient has no known medications. Results Test Description Test Time Test Comments Text Results Atomic Results Result Comments POC Glucose 2019-03-07 11:11:14 Test Item Value Reference Range Comments Glucose POC (test code=Glucose 183 mg/dL 70-115 If you consider your patient POC) critically ill, the Rosario-Accu Check Infrom II meter should not be used for Glucose determination. Draw a venous Glucose and send to the main Lab for analysis.
[2019-09-24] MEDS ORDERED: NA CHLORIDE 0.9% 1,000 ML ONE (21:38)
[2019-09-24 21:39] LABS: Absolute Lymphocytes (CBC) 1.8 K/uL (0.7-4.9); Basophils % 0.9 % (0-1.3); Hematocrit 33.5 % (39.6-49.0); Lymphocytes % 29.3 % (15.3-44.8); MPV 7.7 fL (7.6-11.3); RBC Red Blood Cell Count 3.74 M/uL (4.33-5.43)
[2019-09-24 22:00] LABS: Potassium 4.7 mmol/L (3.5-5.1)
--- NOTE | 2019-09-24 22:51 | RAD REPORT ---
EXAM DESCRIPTION: RAD - Chest Single View - 09/24/2019 9:08 pm CLINICAL HISTORY: low blood pressure Chest pain. COMPARISON: Chest Pa And Lat (2 Views) dated 04/06/2018; Chest Pa And Lat (2 Views) dated 01/12/2018; Chest Single View dated 01/12/2018 FINDINGS: Portable technique limits examination quality. The lungs are grossly clear. The heart is normal in size. No displaced fractures. IMPRESSION: No acute intrathoracic process suspected.
[2019-09-24 23:35] LABS: Urine Volume 2 ML
[2019-09-24 23:44] LABS: Urine Bacteria 20-50 /HPF (NONE SEEN); Urine Culture Reflex Order REFLEXED; Urine RBC NONE SEEN /HPF (NONE SEEN); Urine Urothelial Cells <5 /HPF (NONE SEEN)
--- NOTE | 2019-09-25 00:08 | EDPHYS ---
Physician Documentation [facility] Name: Bryon Hopson Age: 74 yrs Sex: Male : 1945 Arrival Date: 09/24/2019 Time: 20:14 Bed 8 Private MD: ED Physician Paulie Morales HPI: 09/24 22:16 This 74 yrs old Male presents to ER via Wheelchair with complaints of LOW rn BLOOD PRESSURE. 22:16 The patient presents with feeling faint, generalized weakness, lightheadedness. Onset: rn The symptoms/episode began/occurred today. Context: occurred at home, occurred while the patient was at rest. Modifying factors: The symptoms are alleviated by nothing, the symptoms are aggravated by standing up. Severity of symptoms: At their worst the symptoms were mild in the emergency department the symptoms have improved. The patient has experienced similar episodes in the past. Family reports lightheaded and took BP, was low, improved, but wanted him checked, patient denies chest pain/sob/abd pain/vomiting/diarrhea, reports eating and drinking water, no urinary symptoms, no trauma. Feels better now and didn't want to come. No recent changes in medication.. Historical: - Allergies: 20:17 No Known Allergies; sg - PMHx: 20:17 CVA - left sided weakness; Diabetes - NIDDM; Hypertension; sg - PSHx: 20:17 bilateral eyes; Appendectomy; sg - Immunization history:: Adult Immunizations up to date. - Social history:: Smoking status: Patient/guardian denies using tobacco. - Ebola Screening: : No symptoms or risks identified at this time. - Family history:: not pertinent. - Hospitalizations: : No recent hospitalization is reported. ROS: 22:16 Constitutional: Negative for fever, chills, and weight loss, Eyes: Negative for injury, rn pain, redness, and discharge, Neck: Negative for injury, pain, and swelling, Cardiovascular: Negative for chest pain, palpitations, and edema, Respiratory: Negative for shortness of breath, cough, wheezing, and pleuritic chest pain, Abdomen/GI: Negative for abdominal pain, nausea, vomiting, diarrhea, and constipation, MS/Extremity: Negative for injury and deformity, Skin: Negative for injury, rash, and discoloration, Neuro: Negative for headache, numbness, tingling, and seizure. Exam: 22:16 Constitutional: This is a well developed, well nourished patient who is awake, alert, rn and in no acute distress. Head/Face: Normocephalic, atraumatic. Eyes: Pupils equal round and reactive to light, extra-ocular motions intact. Lids and lashes normal. Conjunctiva and sclera are non-icteric and not injected. Cornea within normal limits. Periorbital areas with no swelling, redness, or edema. ENT: MMM Cardiovascular: Regular rate and rhythm. No pulse deficits. Respiratory: No increased work of breathing, no retractions or nasal flaring. Abdomen/GI: soft, non-tender MS/ Extremity: Pulses equal, no cyanosis. Neurovascular intact. Full, normal range of motion. Equal circumference. Neuro: Awake and alert, GCS 15, oriented to person, place, time, and situation. Motor strength 4/5 LUE/LLE, 5/5 RUE/RLE. Vital Signs: 20:17 BP 106 / 51; Pulse 88; Resp 17; Temp 98.8; Pulse Ox 100% ; Pain 0/10; sg 21:44 BP 105 / 61; Pulse 73; Resp 18; Pulse Ox 100% on R/A; ea 22:15 BP 131 / 68; Pulse 80; Resp 18; Pulse Ox 100% ; ea 23:38 BP 129 / 91; Pulse 81; Resp 18; Pulse Ox 98% ; ea MDM: 20:40 Patient medically screened. rn 09/25 00:04 Differential diagnosis: generalized weakness, hypovolemia, idiopathic dizziness, rn near-syncope, vertigo. Data reviewed: vital signs, nurses notes, lab test result(s), EKG, and as a result, I will discharge patient. 00:06 Counseling: I had a detailed discussion with the patient and/or guardian regarding: the rn historical points, exam findings, and any diagnostic results supporting the discharge/admit diagnosis, lab results, radiology results, the need for outpatient follow up, to return to the emergency department if symptoms worsen or persist or if there are any questions or concerns that arise at home. Special discussion: I discussed with the patient/guardian in detail that at this point there is no indication for admission to the hospital. It is understood, however, that if the symptoms persist or worsen the patient needs to return immediately for re-evaluation. ED course: Pt feels better, asymptomatic, + bacteriuria, will treat given reported low BP, no hypotension here, now actually hypertensive, neg procalcitonin, neg cxr. Normal vitals. . 09/24 20:47 Order name: CBC with Diff; Complete Time: 23:07 rn 09/24 20:47 Order name: Basic Metabolic Panel; Complete Time: 23:07 rn 09/24 20:47 Order name: Urine Microscopic Only; Complete Time: 00:00 rn 09/24 20:47 Order name: Procalcitonin; Complete Time: 23:07 rn 09/24 21:53 Order name: Glucose, Ancillary Testing; Complete Time: 23:07 EDMN 09/24 23:46 Order name: Urine Culture EDMN 09/24 20:47 Order name: IV Start; Complete Time: 21:41 rn 09/24 20:47 Order name: EKG; Complete Time: 20:48 rn 09/24 20:47 Order name: EKG - Nurse/Tech; Complete Time: 22:11 rn 09/24 20:47 Order name: XRAY Chest (1 view); Complete Time: 23:07 rn Administered Medications: 09/24 21:42 Drug: NS 0.9% 1000 ml Route: IV; Rate: 1000 ml; Site: right antecubital; ea 09/25 00:00 Follow up: Response: No adverse reaction; IV Status: Completed infusion; IV Intake: ea 1000ml 00:25 Drug: Cipro 500 mg Route: PO; ea 00:37 Follow up: Response: Medication administered at discharge. ea Disposition: 09/25/19 00:07 Discharged to Home. Impression: Dizziness and giddiness, Dehydration, Urinary tract infection, site not specified. - Condition is Stable. - Discharge Instructions: Dehydration, Adult, Dizziness, Urinary Tract Infection, Adult. - Prescriptions for Cipro 500 mg Oral Tablet - take 1 tablet by ORAL route every 12 hours for 7 days; 14 tablet. - Medication Reconciliation Form, Thank You Letter, Antibiotic Education, Prescription Opioid Use, Family Work Release form. - Follow up: Private Physician; When: As needed; Reason: Recheck today's complaints, Re-evaluation by your physician. - Problem is new. - Symptoms have improved. Signatures: Dispatcher [employer] EDMS Reid Pollard RN RN sg Nieto, Roman, MD MD rn Antunez, Ronit, RN RN ea Corrections: (The following items were deleted from the chart) 00:36 00:07 09/25/2019 00:07 Discharged to Home. Impression: Dizziness and giddiness; ea Dehydration; Urinary tract infection, site not specified. Condition is Stable. Forms are Medication Reconciliation Form, Thank You Letter, Antibiotic Education, Prescription Opioid Use. Follow up: Private Physician; When: As needed; Reason: Recheck today's complaints, Re-evaluation by your physician. Problem is new. Symptoms have improved. rn
--- NOTE | 2019-09-25 00:08 | ER ---
Nurse's Notes [facility] Name: Bryon Hopson Age: 74 yrs Sex: Male : 1945 Arrival Date: 09/24/2019 Time: 20:14 Bed 8 Private MD: Diagnosis: Dizziness and giddiness;Dehydration;Urinary tract infection, site not specified Presentation: 09/24 20:18 Presenting complaint: Patient states: Low BP at home with readings of 80/40's report sg having dizziness was unable to walk without assistance, reports having high BP and taking Norvasc at home, denies taking too many medications at this time. Transition of care: patient was not received from another setting of care. Onset of symptoms was September 24, 2019. Risk Assessment: Do you want to hurt yourself or someone else? Patient reports no desire to harm self or others. Initial Sepsis Screen: Does the patient meet any 2 criteria? No. Patient's initial sepsis screen is negative. Does the patient have a suspected source of infection? No. Patient's initial sepsis screen is negative. Care prior to arrival: None. 20:18 Method Of Arrival: Wheelchair sg 20:18 Acuity: MERE 3 sg Historical: - Allergies: 20:17 No Known Allergies; sg - PMHx: 20:17 CVA - left sided weakness; Diabetes - NIDDM; Hypertension; sg - PSHx: 20:17 bilateral eyes; Appendectomy; sg - Immunization history:: Adult Immunizations up to date. - Social history:: Smoking status: Patient/guardian denies using tobacco. - Ebola Screening: : No symptoms or risks identified at this time. - Family history:: not pertinent. - Hospitalizations: : No recent hospitalization is reported. Screenin:43 Abuse screen: Denies threats or abuse. Nutritional screening: No deficits noted. ea Tuberculosis screening: No symptoms or risk factors identified. Fall Risk None identified. Assessment: 21:42 General: Appears in no apparent distress. Behavior is calm, cooperative, appropriate ea for age. Pain: Denies pain. Neuro: Level of Consciousness is awake, alert, obeys commands, pt reports previous stroke that left him with left sided deficit . Cardiovascular: Patient's skin is warm and dry. Respiratory: Airway is patent Respiratory effort is even, unlabored, Respiratory pattern is regular, symmetrical. Derm: Skin is pink, warm \T\ dry. 22:30 Reassessment: Patient and/or family updated on plan of care and expected duration. Pain ea level reassessed. Patient is alert, oriented x 3, equal unlabored respirations, skin warm/dry/pink. 23:38 Reassessment: Patient and/or family updated on plan of care and expected duration. Pain ea level reassessed. Patient is alert, oriented x 3, equal unlabored respirations, skin warm/dry/pink. 09/25 00:34 Reassessment: Patient and/or family updated on plan of care and expected duration. Pain ea level reassessed. Patient is alert, oriented x 3, equal unlabored respirations, skin warm/dry/pink. Discharge instruction given to patient, verbalized the understaging of instruction. Pt left ED via wheelchair accompanied by family. Pt tolerating well. Vital Signs: 09/24 20:17 BP 106 / 51; Pulse 88; Resp 17; Temp 98.8; Pulse Ox 100% ; Pain 0/10; sg 21:44 BP 105 / 61; Pulse 73; Resp 18; Pulse Ox 100% on R/A; ea 22:15 BP 131 / 68; Pulse 80; Resp 18; Pulse Ox 100% ; ea 23:38 BP 129 / 91; Pulse 81; Resp 18; Pulse Ox 98% ; ea ED Course: 20:14 Patient arrived in ED. jg7 20:19 Triage completed. sg 20:22 Ronit Stephens, RN is Primary Nurse. ea 20:40 Paulie Morales MD is Attending Physician. rn 21:05 XRAY Chest (1 view) In Process Unspecified. EDMS 21:35 Inserted saline lock: 22 gauge in right antecubital area, using aseptic technique. ea Blood collected. 21:43 Arm band placed on right wrist. Patient placed in an exam room, on a stretcher, on ea pulse oximetry. 21:44 Patient has correct armband on for positive identification. Bed in low position. Call ea light in reach. Side rails up X2. 09/25 00:33 No provider procedures requiring assistance completed. IV discontinued, intact, ea bleeding controlled, No redness/swelling at site. Pressure dressing applied. Administered Medications: 09/24 21:42 Drug: NS 0.9% 1000 ml Route: IV; Rate: 1000 ml; Site: right antecubital; ea 09/25 00:00 Follow up: Response: No adverse reaction; IV Status: Completed infusion; IV Intake: ea 1000ml 00:25 Drug: Cipro 500 mg Route: PO; ea 00:37 Follow up: Response: Medication administered at discharge. ea Intake: 00:00 IV: 1000ml; Total: 1000ml. ea Outcome: 00:07 Discharge ordered by . rn 00:33 Discharged to home ambulatory, with family. ea 00:33 Condition: stable 00:33 Discharge instructions given to patient, Instructed on discharge instructions, follow up and referral plans. medication usage, Demonstrated understanding of instructions, follow-up care, medications. 00:36 Patient left the ED. ea Signatures: Dispatcher [employer] EDReid Mitchell RN Paulie Maurer MD MD rn Antunez, Elena RN Ama Rocha ea jg7
[2019-09-25] MEDS ORDERED: CIPROFLOXACIN HCL 500 MG TAB ONE (00:24)
[2019-09-25 00:56] VITALS: TEMP 98.8
[2019-09-25 00:59] VITALS: BP 129/91; O2SAT 98
--- NOTE | 2019-09-25 14:40 | EKG ---
Test Date: 2018-09-24 Test Time: 22:06:48 Institutional Research Coordinator: OBNNIE MEASUREMENT RESULTS: Intervals: Rate: 67 NC: 158 QRSD: 86 QT: 426 QTc: 450 [place]: P: 17 NC: 158 QRS: -6 T: 19 INTERPRETIVE STATEMENTS: Normal sinus rhythm Normal ECG Compared to ECG 04/05/2018 10:54:34 Myocardial infarct finding no longer present Cardioserver Error - Incorrect date on EKG This EKG was performed on 09/24/2019 Electronically Signed On 09-25-19 14:39:18 RESPIRATORY SUPPORT TECHNICIAN by Rashaun Miller
== END 2019-09-25 00:36 | disposition home or self-care (01) ==
LOC: ER 20:10
DX: E86.0 Dehydration (principal); N39.0 Urinary tract infection, site not specified; I10 Essential (primary) hypertension
CPT/HCPCS: 96361; 93005; 87088; 85025; 87086; 80048; 36415; 82947; 81015; 84145; 71045; 96360; 99284; J7030

== ENCOUNTER 2020-02-28 17:35 | Inpatient (IN) | payer OTHER ==
--- OUTSIDE RECORDS SUMMARY | 2020-02-28 17:37 | XMS REPORT | Continuity of Care Document ---
:1945 Author Organization [facility] t Address [address] [place] [address] Care Team Providers Name Role Phone Unavailable Unavailable Unavailable Problems This patient has no known problems. Allergies, Adverse Reactions, Alerts This patient has no known allergies or adverse reactions. Medications This patient has no known medications. Procedures This patient has no known procedures. Results Test Description Test Time Test Comments Results Result Comments Source POC Glucose 2019-03-07 11:11:14 Test Item Value Reference Range Interpretation Comme nts Glucose POC (test code = 183 mg/dL 70-115 H If you consider your patient Glucose POC) critically ill, the Rosario-Accu Check Infrom II meter should not be used for Glucose det ermination. Draw a venous Glucose and send to the main Lab for analysi s.
[2020-02-28] MEDS ORDERED: D50W 25 GM/50 ML SYRINGE/VIAL IV ONE ×2 (18:11→21:53)
--- NOTE | 2020-02-28 18:11 | RAD REPORT ---
EXAM DESCRIPTION: CT - Ct Stroke Brain Wo Cont - 02/28/2020 5:55 pm CLINICAL HISTORY: SLURRED SPEECH COMPARISON: Head Brain Wo Cont dated 04/05/2018; Stroke Protocol dated 04/06/2018 TECHNIQUE: Axial 5 millimeter thick images of the head were obtained without IV contrast. All CT scans are performed using dose optimization technique as appropriate and may include automated exposure control or mA/KV adjustment according to patient size. FINDINGS: No intracranial hemorrhage is present. No mass effect, edema or shift of midline structure s. There is a large area of encephalomalacia involving right parietal lobe and much of the right fron shania lobe. This extends inferiorly to involve the sylvian fissure. Areas of cortical thinning are pres ent through most of this region. This is a old CVA change. The area of infarction is much larger than seen on the 2018 imaging. The current findings do not appear acute ; however, some nonhemorrhagic ac howard white matter ischemia could be present along the boundaries of the CVA. Old infarction changes ex tend into the right basal ganglia involving the internal capsule. These changes are similar to the co mparison. Right lateral ventricle has enlarged in proportion to the right-side encephalomalacia. No acute cortical edema or sulcal effacement identifiable. No extra-axial fluid collections. Visualized portions of the mastoid air cells, paranasal sinuses, and orbits are unremarkable. Findings telephoned to the referring clinician 6:05 p.m.. IMPRESSION: No intracranial hemorrhage is present. Large area of encephalomalacia involving the parietal, frontal and a small portion of the temporal lo be on the right. Changes are consistent with remote CVA. Old infarction changes are present in the internal capsule on the right. An acute ischemic event is not identified. Acute nonhemorrhagic ischemia along the watershed of the o ld infarction cannot entirely be excluded.
[2020-02-28 18:19] LABS: Absolute Lymphocytes (CBC) 0.9 K/uL (0.7-4.9); Basophils % 0.5 % (0-1.3); Hematocrit 30.6 % (39.6-49.0); Lymphocytes % 11.2 % (15.3-44.8); RBC Red Blood Cell Count 3.49 M/uL (4.33-5.43)
[2020-02-28 18:22] LABS: Protime INR 1.14
[2020-02-28 18:27] LABS: ALT/SGPT 14 U/L (12-78); AST/SGOT 13 U/L (15-37); Albumin 3.4 g/dL (3.4-5.0); Alkaline Phosphatase 73 U/L (45-117); BUN Blood Urea Nitrogen 40 mg/dL (7-18); Bicarbonate 25 mmol/L (21-32); Bilirubin Direct 0.1 mg/dL (0-0.2); Bilirubin Total 0.5 mg/dL (0.2-1.0); Glucose Level 71 mg/dL (74-106); Magnesium 1.9 mg/dL (1.8-2.4); NT PRO-BNP 446 pg/mL (<125); Potassium 3.1 mmol/L (3.5-5.1); Protein, Total 7.2 g/dL (6.4-8.2); Sodium Level 141 mmol/L (136-145); Troponin (Emerg Dept Use Only) < 0.02 ng/mL (0.0-0.045)
[2020-02-28] MEDS ORDERED: FOLIC ACID 5 MG/ML VIAL ONE (18:37)
--- NOTE | 2020-02-28 18:42 | RAD REPORT ---
EXAM DESCRIPTION: RAD - Chest Single View - 02/28/2020 6:18 pm CLINICAL HISTORY: speech changes, Stroke protocol chest film COMPARISON: Portable September 2019 TECHNIQUE: AP portable chest image was obtained 02/28/2020 6:18 pm . FINDINGS: Lungs are clear but low in volume. No failure or volume overload seen. Heart and vasculatu re are normal. No measurable pleural effusion and no pneumothorax. No acute bony abnormality seen. No acute aortic findings suspected. IMPRESSION: No acute cardiopulmonary process. No worrisome change from comparison.
[2020-02-28] MEDS ORDERED: POTASSIUM 25 MEQ EFFERV TAB ONE (18:48)
[2020-02-28] MEDS ORDERED: NA CHLORIDE 0.9% 250 ML ONE (18:48)
[2020-02-28 19:25] LABS: Urine Bacteria NONE SEEN /HPF (NONE SEEN); Urine RBC <5 /HPF (NONE SEEN)
[2020-02-28] MEDS ORDERED: ASPIRIN 81 MG CHEWABLE TABLET ONE (19:25)
[2020-02-28 19:26] LABS: Urine Blood NEGATIVE (NEG); Urine Glucose TRACE (NEG); Urine Protein 1+ (NEG)
[2020-02-28 19:26] LABS: Urine Culture Reflex Order NOT NEEDED
--- NOTE | 2020-02-28 20:32 | RAD REPORT ---
EXAM DESCRIPTION: MRI - Brain Wo Cont - 02/28/2020 8:21 pm CLINICAL HISTORY: confusion COMPARISON: MRA Head Wo Cont dated 02/28/2020 TECHNIQUE: Sagittal T1-weighted images were obtained along with axial PD, heavily T2-weighted and T2 -FLAIR images. Axial DWI and ADC mapping sequences were also obtained along with coronal heavily T2-w eighted images. FINDINGS: No acute infarction changes are identifiable. There is no hemorrhage, mass or edema. Patie nt has a large area of encephalomalacia in the right cerebral hemisphere involving significant portio ns of the frontal and parietal lobes and a small portion of the right temporal lobe. Old ischemic inj ury extends into the thalamus and basal ganglia on the right. There is associated significant post in farction atrophy of the right cerebral peduncle. Baseline mild atrophy changes are present with mild left cerebral chronic ischemic change. Ventricles are in proportion to the volume loss changes. There is no edema or shift of midline struct ures. No extra-axial fluid collections. Fuentes-matter/white matter junction is preserved. Signal voids are seen as a normal finding in the major intracranial vessels. No globe or orbital content abnormality. Mastoid air cells and paranasal sinuses are clear. IMPRESSION: No acute infarction. Extensive remote infarction changes involving the portions of the right frontal and parietal lobes, s mall portion of the right temporal lobe and the right cerebral peduncle.
--- NOTE | 2020-02-28 20:37 | RAD REPORT ---
EXAM DESCRIPTION: MRI - MRA Head Wo Cont - 02/28/2020 8:20 pm CLINICAL HISTORY: Left-sided weakness, history of CVA, stroke-like symptoms COMPARISON: MRI brain same date, CT head same date TECHNIQUE: Axial and coronal 3D [id number] image acquisition was performed. 3D rotational images were generated with source and reconstruction images reviewed. Horizontal and vertical axis rotation al views generated using MIP protocol. FINDINGS: No aneurysm or vascular malformation. The bilateral internal carotid arteries show no sign ificant atherosclerotic change. The bilateral anterior cerebral and left middle cerebral artery show no significant disease. There is an acute truncation of the right middle cerebral artery at the M1 - M2 branch. Small collateralized vessels are seen in the far periphery. This is a pattern expected for the large area of right cerebral infarction. Left vertebral artery is dominant. Vertebrobasilar tortuosity is noted with no stenosis. Basilar marion ry terminates at the superior cerebellar arteries as a normal variant. Large bilateral posterior comm unicating arteries are present supplying the [employer] circulation. Right vertebral artery is not identifie d and may terminate at the lower branch level. The chronic occlusion of the right vertebral artery is not excluded. 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 This finding is not unexpected given the large area of old CVA in the right cerebral hemisphere. Nonvisualization of the right vertebral artery. Occlusion of the right vertebral artery whether acute or chronic cannot be excluded on this study. An acute occlusion would be unlikely given the absence of any acute MRI brain finding and a dominant left vertebral artery.
--- NOTE | 2020-02-28 20:44 | EDPHYS ---
Physician Documentation [facility] Name: Bryon Hopson Age: 74 yrs Sex: Male : 1945 Arrival Date: 02/28/2020 Time: 17:38 Bed 4 Private MD: ED Physician Lizzy Mckeon HPI: 02/27 18:00 This 74 yrs old Male presents to ER via Unassigned with complaints of Facial cp Droop, Trouble Walking. 18:00 The patient presents to the emergency department with a speech or higher order brain cp function problem, aphasia, that is marked, difficult walking, the patient is off balance. 18:00 Context: occurred at home. Associated signs and symptoms: Pertinent negatives: altered cp mental status, dizziness, fever, headache, paresthesias, syncope. Severity of symptoms: in the emergency department the symptoms have resolved and did so just prior to arrival. Patient's baseline: Neuro: alert and fully oriented, Motor: left-sided weakness, left-sided facial droop, Ambulation: walks without assistance, Speech: normal, The patient has a previous history of CVA. Current symptoms: back to baseline. Daughter reports visiting patient at home today and upon arrival at about 1615 noticed immediately that patient was having difficulty speaking. Daughter reports patient's speech returned to normal prior to arrival. Historical: - Allergies: 18:02 No Known Allergies; ca1 - Home Meds: 19:25 artificial tears(hypromellose) 0.4 % Opht drop [Active]; Eye Drops ophthalmic [Active]; tl2 gabapentin 300 mg Oral cap 1 cap 4 times a day [Active]; glipizide 5 mg Oral tab 1 tab 4 times a day [Active]; latanoprost 0.005 % ophthalmic drop 1 drop once daily [Active]; metformin 500 mg Oral tab 2 tabs 2 times per day [Active]; ramipril 10 mg Oral cap 1 cap once daily [Active]; vision shield [Active]; one a day [Active]; - PMHx: 18:02 CVA - left sided weakness; Hypertension; Diabetes - NIDDM; ca1 - PSHx: 18:02 bilateral eyes; Appendectomy; ca1 - Immunization history:: Adult Immunizations up to date. - Social history:: Smoking status: Patient reports the use of cigarette tobacco products, smokes two packs cigarettes per day. ROS: 18:03 Eyes: Negative for injury, pain, redness, and discharge. cp 18:03 Constitutional: Negative for body aches, chills, fever, poor PO intake. 18:03 Cardiovascular: Negative for chest pain, edema, palpitations. 18:03 Respiratory: Negative for cough, shortness of breath, sputum production. 18:03 Abdomen/GI: Negative for abdominal pain, nausea, vomiting, and diarrhea. 18:03 Neuro: Positive for gait disturbance, speech changes, Negative for altered mental status. 18:03 All other systems are negative. cp Exam: 18:05 Constitutional: The patient appears in no acute distress, alert, awake, cp non-diaphoretic, non-toxic, well developed, well nourished. 18:05 Head/face: Noted is left side facial droop from previous CVA. cp 18:05 Eyes: Periorbital structures: appear normal, Pupils: equal, round, and reactive to light and accomodation, Extraocular movements: intact throughout, Conjunctiva: normal, no exudate, no injection, Lids and lashes: appear normal, bilaterally. 18:05 ENT: External ear(s): are unremarkable, Nose: is normal, Mouth: Lips: moist, Oral mucosa: pink and intact, moist, Posterior pharynx: Airway: no evidence of obstruction, patent. 18:05 Chest/axilla: Inspection: normal, Palpation: is normal, no crepitus, no tenderness. 18:05 Cardiovascular: Rate: normal, Rhythm: regular, Edema: is not appreciated, JVD: is not appreciated. 18:05 Respiratory: the patient does not display signs of respiratory distress, Respirations: normal, no use of accessory muscles, no retractions, labored breathing, is not present, Breath sounds: are clear throughout, no decreased breath sounds, no stridor, no wheezing. 18:05 Abdomen/GI: Inspection: abdomen appears normal, Bowel sounds: active, all quadrants, Palpation: abdomen is soft and non-tender, in all quadrants. 18:05 Back: pain, is absent, ROM is normal. 18:05 Skin: no rash present. 18:05 Neuro: Orientation: to person, place \T\ time. Mentation: is normal, Cerebellar function: dysmetria is noted on the left, mild from previous CVA, Motor: moves all fours, Sensation: no obvious gross deficits. 18:12 ECG was reviewed by the Attending Physician. Vital Signs: 17:57 BP 156 / 74; Pulse 74; Resp 17 S; Temp 97.6(TE); Pulse Ox 99% on R/A; Weight 63.5 kg ca1 (R); Height 5 ft. 2 in. (157.48 cm) (R); Pain 0/10; 18:20 BP 150 / 64; Pulse 68; Resp 20 S; Pulse Ox 100% on R/A; aa5 18:50 BP 149 / 74; Pulse 66; Resp 16 S; Pulse Ox 100% on R/A; aa5 19:23 BP 168 / 78; Pulse 95; Resp 17; Pulse Ox 98% on R/A; tl2 21:37 BP 158 / 88; Pulse 67; Resp 18; Pulse Ox 98% on R/A; tl2 17:57 Body Mass Index 25.61 (63.50 kg, 157.48 cm) ca1 NIH Stroke Scale Scores: 17:55 NIHSS Score: 3 aa5 18:00 NIHSS Score: 0 cp 18:37 NIHSS Score: 3 aa5 MDM: 17:58 Patient medically screened. 17:59 ED course: Patient is not a candidate for tpa as onset of symptoms are unknown, cp daughter reports patient lives at home alone and she noticed speech changes when she arrived at patient's home at 1615. 19:05 Physician consultation: Kurt Nguyen was called at 19:05, was contacted at 19:05, regarding admission, to the telemetry unit. patient's condition, would like further tests performed, MRI, recommends discharge and outpatient follow-up if normal. 19:05 Data reviewed: vital signs, nurses notes, lab test result(s), EKG, radiologic studies, CT scan, plain films. 19:05 Test interpretation: by ED physician or midlevel provider: ECG. 20:50 Physician consultation: Kurt Nguyen was contacted at 20:45, regarding admission, to the telemetry unit. patient's condition, and will see patient in ED, and admit for observation. 02/27 17:57 Order name: Basic Metabolic Panel; Complete Time: 18:29 02/27 18:29 Interpretation: Normal except: K 3.1; CL 109; GLUC 71; BUN 40; CRE 1.88; GFR 35; CA 8.2.cp 06/12 17:57 Order name: CBC with Diff; Complete Time: 18:45 cp 06/12 18:45 Interpretation: Normal except: RBC 3.49; HGB 10.6; HCT 30.6; DAVIAN% 80.6; LYM% 11.2. cp 06/12 17:57 Order name: LFT's; Complete Time: 18:29 cp 12 17:57 Order name: Magnesium; Complete Time: 18:29 cp 12 17:57 Order name: NT PRO-BNP; Complete Time: 18:29 cp 06/12 17:57 Order name: PT-INR; Complete Time: 18:45 cp 06/12 17:57 Order name: Troponin (emerg Dept Use Only); Complete Time: 18:29 cp /12 18:08 Order name: Glucose, Ancillary Testing; Complete Time: 18:29 EDMS 12 18:31 Order name: Urine Microscopic Only 02/27 18:32 Order name: Urine Microscopic Only; Complete Time: 20:50 EDMS 12 18:58 Order name: Glucose, Ancillary Testing; Complete Time: 20:50 EDMS 12 19:14 Order name: Urine Dipstick--Ancillary (enter results); Complete Time: 20:50 eb 02/27 21:53 Order name: Glucose, Ancillary Testing EDUT 02/27 22:35 Order name: Glucose, Ancillary Testing EDUT 12 17:51 Order name: CT Stroke Brain w/o Contrast; Complete Time: 18:29 iw 02/27 17:57 Order name: XRAY Chest (1 view); Complete Time: 18:45 cp /12 17:57 Order name: EKG; Complete Time: 17:58 cp 12 17:57 Order name: Cardiac monitoring; Complete Time: 17:58 cp 12 19:42 Order name: MRA Head Wo Cont; Complete Time: 20:50 EDMS /12 19:43 Order name: Brain Wo Cont; Complete Time: 20:50 EDMS /12 21:42 Order name: Diet Regular; Complete Time: 21:43 cp 12 17:57 Order name: EKG - Nurse/Tech; Complete Time: 18:12 cp 12 17:57 Order name: IV Saline Lock; Complete Time: 17:58 cp /12 17:57 Order name: Labs collected and sent; Complete Time: 18:03 cp /12 17:57 Order name: O2 Per Protocol; Complete Time: 17:59 cp /12 17:57 Order name: O2 Sat Monitoring; Complete Time: 17:59 cp /12 17:57 Order name: Accucheck Blood Glucose; Complete Time: 17:58 cp /12 18:31 Order name: Urine Dipstick-Ancillary (obtain specimen); Complete Time: 19:06 cp EC:12 Rate is 67 beats/min. Rhythm is regular. MI interval is normal. QRS interval is cp prolonged at 106 msec. QT interval is normal. Interpreted by me. Reviewed by me. Administered Medications: 18:05 Drug: D50W 25 ml Route: IVP; Site: right antecubital; aa5 18:21 Follow up: Response: No adverse reaction aa5 18:08 CANCELLED (Physician Discretion): Aspirin Chewable Tablet 81 mg PO once cp 18:12 CANCELLED (Physician Discretion): foLIC Acid 1 mg IVPB once aa5 18:25 Drug: foLIC Acid 1 mg Route: IVPB; Site: right antecubital; aa5 18:37 Drug: Potassium Effervescent Tablet 50 mEq Route: PO; aa5 22:11 Follow up: Response: No adverse reaction tl2 18:37 Drug: NS 0.9% 250 ml Route: IV; Rate: bolus; Site: right antecubital; aa5 22:11 Follow up: IV Status: Completed infusion; IV Intake: 250ml tl2 19:20 Drug: Aspirin Chewable Tablet 81 mg Route: PO; tl2 21:55 Follow up: Response: No adverse reaction tl2 21:55 Drug: D50W 50 ml Route: IVP; Site: right antecubital; tl2 22:30 Follow up: Response: Blood sugar is elevated tl2 Point of Care Testing: Blood Glucose: 18:02 Blood Glucose: 71 mg/dL; ca1 21:41 Blood Glucose: 39 mg/dL; tl2 22:22 Blood Glucose: 142 mg/dL; tl2 Ranges: Critical Glucose Levels:Adult <50 mg/dl or >400 mg/dl <40 mg/dl or >180 mg/dl Disposition: 21:00 Chart complete. cp Disposition: 02/28/20 20:42 Hospitalization ordered by Kurt Nguyen for Observation. Preliminary diagnosis is Transient cerebral ischemic attack, unspecified. - Bed requested for Telemetry/MedSurg (observation). - Status is Observation. tl2 - Condition is Stable. - Problem is new. - Symptoms have improved. NIH Stroke Scale - NIH Stroke Score Date: 02/28/2020 Time: 17:55 Total Score = 3 1a. Level of Consciousness (LOC) - 0(Alert) 1b. Level of Consciousness (LOC) (Year \T\ Age) - 0(Both) 1c. LOC Commands (Open \T\ Closes Eyes/General Laborer) - 0(Both) 2. Best Gaze (Lateral Gaze Paresis) - 0(Normal) 3. Visual Field Loss - 0(No visual loss) 4. Facial Palsy - 2(Partial paralysis) 5a. Left Arm: Motor (10-second hold) - 1(Drift) 5b. Right Arm: Motor (10-second hold) - 0(No drift) 6a. Left Leg: Motor (5-second hold - always test supine) - 0(No drift) 6b. Right Leg: Motor (5-second hold - always test supine) - 0(No drift) 7. Limb Ataxia (finger/nose \T\ heel/pate - test with eyes open) - 0(Absent) 8. Sensory Loss (pinprick arms/legs/face) - 0(Normal) 9. Best Language: Aphasia (description/naming/reading) - 0(No aphasia) 10. Dysarthria (speech clarity - read or repeat words) - 0(Normal) 11. Extinction and Inattention (visual/tactile/auditory/spatial/personal) - 0(No abnormality) Initials: aa5 NIH Stroke Scale - NIH Stroke Score Date: 02/28/2020 Time: 18:00 Total Score = 0 1a. Level of Consciousness (LOC) - 0(Alert) 1b. Level of Consciousness (LOC) (Year \T\ Age) - 0(Both) 1c. LOC Commands (Open \T\ Closes Eyes/General Laborer) - 0(Both) 2. Best Gaze (Lateral Gaze Paresis) - 0(Normal) 3. Visual Field Loss - 0(No visual loss) 4. Facial Palsy - 0(Normal) 5a. Left Arm: Motor (10-second hold) - 0(No drift) 5b. Right Arm: Motor (10-second hold) - 0(No drift) 6a. Left Leg: Motor (5-second hold - always test supine) - 0(No drift) 6b. Right Leg: Motor (5-second hold - always test supine) - 0(No drift) 7. Limb Ataxia (finger/nose \T\ heel/pate - test with eyes open) - 0(Absent) 8. Sensory Loss (pinprick arms/legs/face) - 0(Normal) 9. Best Language: Aphasia (description/naming/reading) - 0(No aphasia) 10. Dysarthria (speech clarity - read or repeat words) - 0(Normal) 11. Extinction and Inattention (visual/tactile/auditory/spatial/personal) - 0(No abnormality) Initials: cp NIH Stroke Scale - NIH Stroke Score Date: 02/28/2020 Time: 18:37 Total Score = 3 1a. Level of Consciousness (LOC) - 0(Alert) 1b. Level of Consciousness (LOC) (Year \T\ Age) - 0(Both) 1c. LOC Commands (Open \T\ Closes Eyes/General Laborer) - 0(Both) 2. Best Gaze (Lateral Gaze Paresis) - 0(Normal) 3. Visual Field Loss - 0(No visual loss) 4. Facial Palsy - 2(Partial paralysis) 5a. Left Arm: Motor (10-second hold) - 1(Drift) 5b. Right Arm: Motor (10-second hold) - 0(No drift) 6a. Left Leg: Motor (5-second hold - always test supine) - 0(No drift) 6b. Right Leg: Motor (5-second hold - always test supine) - 0(No drift) 7. Limb Ataxia (finger/nose \T\ heel/pate - test with eyes open) - 0(Absent) 8. Sensory Loss (pinprick arms/legs/face) - 0(Normal) 9. Best Language: Aphasia (description/naming/reading) - 0(No aphasia) 10. Dysarthria (speech clarity - read or repeat words) - 0(Normal) 11. Extinction and Inattention (visual/tactile/auditory/spatial/personal) - 0(No abnormality) Initials: aa5 Addendum: 03/08/2020 13:16 Co-signature as Attending Physician, Lizzy Mckeon MD. ma2 Signatures: Dispatcher [employer] EDUT Bailee Jc, RN RN aa5 Joel Nguyen PA PA cp Emely Araujo, RN RN cg Madison Baca, RN RN tl2 Lizzy Mckeon MD MD ma2 Alivia Allen RN RN ca1 Corrections: (The following items were deleted from the chart) 02/27 18:08 18:07 Aspirin Chewable Tablet 81 mg PO once ordered. cp cp 18:12 18:07 foLIC Acid 1 mg IVPB once ordered. cp aa5 18:29 18:29 Normal except: K 3.1; CL 109; GLUC 71; BUN 40; CRE 1.88; GFR 35. cp cp 19:42 19:14 MR STROKE PROTOCOL+MRI.RAD.BRZ ordered. EDUT EDMS 21:54 20:42 Hospitalization Ordered by Kurt Nguyen for Observation. Preliminary cg diagnosis is Transient cerebral ischemic attack, unspecified. Bed requested for Telemetry/MedSurg (observation). Status is Observation. Condition is Stable. Problem is new. Symptoms have improved. cp 23:38 21:54 02/28/2020 20:42 Hospitalization Ordered by Kurt Nguyen for tl2 Observation. Preliminary diagnosis is Transient cerebral ischemic attack, unspecified. Bed requested for Telemetry/MedSurg (observation). Status is Observation. Condition is Stable. Problem is new. Symptoms have improved. cg
--- NOTE | 2020-02-28 20:44 | ER ---
Nurse's Notes [facility] Name: Bryon Hopson Age: 74 yrs Sex: Male : 1945 Arrival Date: 02/28/2020 Time: 17:38 Bed 4 Private MD: Diagnosis: Transient cerebral ischemic attack, unspecified Presentation: 02/27 17:57 Chief complaint: Patient's son or daughter states: "I got to his house at 1640 today ca1 and he was slurring his speech. He was drooling more than usual and his gait is just not right. He just not look right. He fell twice today and had severe headaches since 3 days ago. He had history of 2 previous strokes" Daughter reports facial droop on L side of face is baseline and from a previous stroke. Symptoms resolved at this time. Van negative. Notice gait disturbance when pt ambulated from wheelchair to CT bed. Coronavirus screen: Proceed with normal triage. Patient denies a cough. Patient denies shortness of breath or difficulty breathing. Patient denies measured and/or subjective temperature greater than 100.4F prior to today's visit. Patient denies travel on a cruise ship or to a country the [facility] currently lists as an affected area. Patient denies contact with known and/or suspected case of COVID-19. Ebola Screen: Patient negative for fever greater than or equal to 101.5 degrees Fahrenheit, and additional compatible Ebola Virus Disease symptoms Patient denies exposure to infectious person. Patient denies travel to an Ebola-affected area in the 21 days before illness onset. No symptoms or risks identified at this time. Initial Sepsis Screen: Does the patient meet any 2 criteria? No. Patient's initial sepsis screen is negative. Does the patient have a suspected source of infection? No. Patient's initial sepsis screen is negative. Risk Assessment: Do you want to hurt yourself or someone else? Patient reports no desire to harm self or others. Onset of symptoms was February 28, 2020. 17:57 Method Of Arrival: Wheelchair ca1 17:57 Acuity: MERE 2 ca1 17:57 An acute neurological deficit is present. Pre-hospital glucose is not applicable to aa5 this patient. Triage Assessment: 17:55 The onset of the patients symptoms was at an unknown time. aa5 23:37 The onset of the patients symptoms was February 28, 2020 at 16:40. tl2 23:38 Neuro: Reports. tl2 Stroke Activation: Symptom onset < 3 hours Physician: Stroke Attending; Name: ; Notified At: ; Arrived At: Physician: Chief Stroke Resident; Name: ; Notified At: ; Arrived At: Physician: Stroke Resident; Name: ; Notified At: ; Arrived At: Physician: ED Attending; Name: ; Notified At: ; Arrived At: Physician: ED Resident; Name: ; Notified At: ; Arrived At: Historical: - Allergies: 18:02 No Known Allergies; ca1 - Home Meds: 19:25 artificial tears(hypromellose) 0.4 % Opht drop [Active]; Eye Drops ophthalmic [Active]; tl2 gabapentin 300 mg Oral cap 1 cap 4 times a day [Active]; glipizide 5 mg Oral tab 1 tab 4 times a day [Active]; latanoprost 0.005 % ophthalmic drop 1 drop once daily [Active]; metformin 500 mg Oral tab 2 tabs 2 times per day [Active]; ramipril 10 mg Oral cap 1 cap once daily [Active]; vision shield [Active]; one a day [Active]; - PMHx: 18:02 CVA - left sided weakness; Hypertension; Diabetes - NIDDM; ca1 - PSHx: 18:02 bilateral eyes; Appendectomy; ca1 - Immunization history:: Adult Immunizations up to date. - Social history:: Smoking status: Patient reports the use of cigarette tobacco products, smokes two packs cigarettes per day. Screenin:05 Abuse screen: Denies threats or abuse. Nutritional screening: No deficits noted. aa5 Tuberculosis screening: No symptoms or risk factors identified. Fall Risk Secondary diagnosis (15 points) CVA, IV access (20 points). Total Dela Cruz Fall Scale indicates Low Risk Score (25-44 pts). Fall prevention measures have been instituted. Side Rails Up X 2 Placed close to Nursing Station. Assessment: 17:55 VAN Scoring: Arm Drift: Minor drift Visual Disturbance: No visual disturbance noted. aa5 Aphasia: No aphasia noted. Neglect: No neglect noted. 17:55 General: Appears comfortable, Behavior is calm, cooperative, Pt's daughter states "When aa5 I got to his house he had a headache, slurred speech, and the left side of his face was even more droopy than normal but he is so much better now, he is not like I found him earlier" . Pain: Denies pain. Neuro: Level of Consciousness is awake, alert, obeys commands, Oriented to person, place, time, situation, Pier Master are weak on left Moves all extremities. Pt reports left-sided weakness from previous CVA . Speech is normal, Facial droop on left, that is baseline reported by pt's daughter . Pupils are PERRLA. Cardiovascular: Heart tones S1 S2 present Rhythm is regular. Respiratory: Airway is patent Respiratory effort is even, unlabored, Respiratory pattern is regular, symmetrical. GI: No signs and/or symptoms were reported involving the gastrointestinal system. : No signs and/or symptoms were reported regarding the genitourinary system. EENT: No signs and/or symptoms were reported regarding the EENT system. Derm: Skin is pink, warm \\T\\ dry. Musculoskeletal: Range of motion: intact in all extremities. 17:55 Reassessment: Pt back from CT via wheelchair, accompanied by Alivia Allen RN. aa5 17:55 Reassessment: Pt is unable to recall exact time of s/s onset. Pt states "I just didn't aa5 feel right and I had a headache". 17:57 Patient has been NPO before screening. The patient is alert, and able to follow aa5 commands. The patient does not exhibit slurred or garbled speech. The patient is not exhibiting difficulty speaking. The patient does not exhibit difficulty understanding words. The patient is able to swallow own secretions with no drooling or need for suction. Patient tolerated one teaspoon of water. No drooling, immediate coughing, gurgling, or clearing of the throat was noted. The patient tolerated 90mL of water. No drooling, immediate coughing, gurgling, or clearing of the throat was noted. The patient passed the bedside swallow screening. Oral medications may be given as ordered. Contact Physician for further diet orders. Provider notified of bedside swallow screening results: Joel MIDDLETON. 17:57 T-PA (Activase) Screening: Contraindications: Rapidly improving condition or minor aa5 deficit: Yes. 18:37 Reassessment: Patient is alert, oriented x 3, equal unlabored respirations, skin aa5 warm/dry/pink. Patient denies pain at this time. 18:53 Reassessment: Patient is alert, oriented x 3, equal unlabored respirations, skin aa5 warm/dry/pink. Pt being assisted to restroom via wheelchair by Dwayne Foss hvac service technician . 19:23 Reassessment: Pt is out to MRI. General: Appears in no apparent distress. comfortable, tl2 Behavior is calm, cooperative, appropriate for age. Pain: Denies pain. Neuro: Level of Consciousness is awake, alert, obeys commands, Oriented to person, place, time, situation, Pier Master are weak on left Moves all extremities. Speech is normal, Facial droop on left, Droop on left is baseline. Cardiovascular: Denies chest pain, Rhythm is regular. Respiratory: Airway is patent Respiratory effort is even, unlabored, Respiratory pattern is regular, symmetrical. GI: No signs and/or symptoms were reported involving the gastrointestinal system. : No signs and/or symptoms were reported regarding the genitourinary system. Derm: Skin is pink, warm \\T\\ dry. 21:41 Reassessment: Patient appears in no apparent distress at this time. Patient is alert, tl2 oriented x 3, equal unlabored respirations, skin warm/dry/pink. Followup BGL check. 39. Pt denies any symptoms, states he feels "fine". PA notified, new orders. See MAR. 22:08 Reassessment: Patient appears in no apparent distress at this time. Patient is alert, tl2 oriented x 3, equal unlabored respirations, skin warm/dry/pink. Pt awake and alert, gave patient a sandwich, fruit cup and soda. Pt tolerating well, will check BGL at 2230 before calling report to the floor. Vital Signs: 17:57 BP 156 / 74; Pulse 74; Resp 17 S; Temp 97.6(TE); Pulse Ox 99% on R/A; Weight 63.5 kg ca1 (R); Height 5 ft. 2 in. (157.48 cm) (R); Pain 0/10; 18:20 BP 150 / 64; Pulse 68; Resp 20 S; Pulse Ox 100% on R/A; aa5 18:50 BP 149 / 74; Pulse 66; Resp 16 S; Pulse Ox 100% on R/A; aa5 19:23 BP 168 / 78; Pulse 95; Resp 17; Pulse Ox 98% on R/A; tl2 21:37 BP 158 / 88; Pulse 67; Resp 18; Pulse Ox 98% on R/A; tl2 17:57 Body Mass Index 25.61 (63.50 kg, 157.48 cm) ca1 NIH Stroke Scale Scores: 17:55 NIHSS Score: 3 aa5 18:00 NIHSS Score: 0 cp 18:37 NIHSS Score: 3 aa5 ED Course: 17:38 Patient arrived in ED. as 17:50 Joel Nguyen PA is PHCP. cp 17:50 Lizzy Mckeon MD is Attending Physician. cp 17:55 CT Stroke Brain w/o Contrast In Process Unspecified. EDMS 17:55 Inserted saline lock: 20 gauge in right antecubital area, using aseptic technique. dh3 Blood collected. 17:55 Patient has correct armband on for positive identification. Placed in gown. Bed in low aa5 position. Call light in reach. Side rails up X2. monitor and storage bin tender on. Pulse ox on. NIBP on. 18:01 Triage completed. ca1 18:02 Initial lab(s) drawn, by oh, sent to lab. dh3 18:02 Arm band placed on right wrist. ca1 18:11 Bailee Jc, JENNIFER is Primary Nurse. aa5 18:11 EKG done, by ED staff, reviewed by Joel MIDDLETON. dh3 18:18 XRAY Chest (1 view) In Process Unspecified. EDMS 19:00 Urine collected: clean catch specimen, clear. dh3 19:04 Report given to Madison RN and Isaac RN. aa5 20:14 MRA Head Wo Cont In Process Unspecified. EDMS 20:14 Brain Wo Cont In Process Unspecified. EDMS 20:40 Kurt Nguyen is Hospitalizing Provider. cp 23:37 No provider procedures requiring assistance completed. Patient admitted, IV remains in tl2 place. Administered Medications: 18:05 Drug: D50W 25 ml Route: IVP; Site: right antecubital; aa5 18:21 Follow up: Response: No adverse reaction aa5 18:08 CANCELLED (Physician Discretion): Aspirin Chewable Tablet 81 mg PO once cp 18:12 CANCELLED (Physician Discretion): foLIC Acid 1 mg IVPB once aa5 18:25 Drug: foLIC Acid 1 mg Route: IVPB; Site: right antecubital; aa5 18:37 Drug: Potassium Effervescent Tablet 50 mEq Route: PO; aa5 22:11 Follow up: Response: No adverse reaction tl2 18:37 Drug: NS 0.9% 250 ml Route: IV; Rate: bolus; Site: right antecubital; aa5 22:11 Follow up: IV Status: Completed infusion; IV Intake: 250ml tl2 19:20 Drug: Aspirin Chewable Tablet 81 mg Route: PO; tl2 21:55 Follow up: Response: No adverse reaction tl2 21:55 Drug: D50W 50 ml Route: IVP; Site: right antecubital; tl2 22:30 Follow up: Response: Blood sugar is elevated tl2 Point of Care Testing: Blood Glucose: 18:02 Blood Glucose: 71 mg/dL; ca1 21:41 Blood Glucose: 39 mg/dL; tl2 22:22 Blood Glucose: 142 mg/dL; tl2 Ranges: Intake: 22:11 IV: 250ml; Total: 250ml. tl2 Outcome: 20:42 Decision to Hospitalize by Provider. cp 23:37 Admitted to Tele accompanied by josé miguel, via stretcher, room 402, with chart, Report tl2 called to Keira 23:37 Condition: stable 23:37 Discharge instructions given to patient, Instructed on the need for admit. 23:38 Patient left the ED. tl2 NIH Stroke Scale - NIH Stroke Score Date: 02/28/2020 Time: 17:55 Total Score = 3 1a. Level of Consciousness (LOC) - 0(Alert) 1b. Level of Consciousness (LOC) (Year \\T\\ Age) - 0(Both) 1c. LOC Commands (Open \\T\\ Closes Eyes/Water Restoration Technician) - 0(Both) 2. Best Gaze (Lateral Gaze Paresis) - 0(Normal) 3. Visual Field Loss - 0(No visual loss) 4. Facial Palsy - 2(Partial paralysis) 5a. Left Arm: Motor (10-second hold) - 1(Drift) 5b. Right Arm: Motor (10-second hold) - 0(No drift) 6a. Left Leg: Motor (5-second hold - always test supine) - 0(No drift) 6b. Right Leg: Motor (5-second hold - always test supine) - 0(No drift) 7. Limb Ataxia (finger/nose \\T\\ heel/pate - test with eyes open) - 0(Absent) 8. Sensory Loss (pinprick arms/legs/face) - 0(Normal) 9. Best Language: Aphasia (description/naming/reading) - 0(No aphasia) 10. Dysarthria (speech clarity - read or repeat words) - 0(Normal) 11. Extinction and Inattention (visual/tactile/auditory/spatial/personal) - 0(No abnormality) Initials: aa5 NIH Stroke Scale - NIH Stroke Score Date: 02/28/2020 Time: 18:00 Total Score = 0 1a. Level of Consciousness (LOC) - 0(Alert) 1b. Level of Consciousness (LOC) (Year \\T\\ Age) - 0(Both) 1c. LOC Commands (Open \\T\\ Closes Eyes/Water Restoration Technician) - 0(Both) 2. Best Gaze (Lateral Gaze Paresis) - 0(Normal) 3. Visual Field Loss - 0(No visual loss) 4. Facial Palsy - 0(Normal) 5a. Left Arm: Motor (10-second hold) - 0(No drift) 5b. Right Arm: Motor (10-second hold) - 0(No drift) 6a. Left Leg: Motor (5-second hold - always test supine) - 0(No drift) 6b. Right Leg: Motor (5-second hold - always test supine) - 0(No drift) 7. Limb Ataxia (finger/nose \\T\\ heel/pate - test with eyes open) - 0(Absent) 8. Sensory Loss (pinprick arms/legs/face) - 0(Normal) 9. Best Language: Aphasia (description/naming/reading) - 0(No aphasia) 10. Dysarthria (speech clarity - read or repeat words) - 0(Normal) 11. Extinction and Inattention (visual/tactile/auditory/spatial/personal) - 0(No abnormality) Initials: cp NIH Stroke Scale - NIH Stroke Score Date: 02/28/2020 Time: 18:37 Total Score = 3 1a. Level of Consciousness (LOC) - 0(Alert) 1b. Level of Consciousness (LOC) (Year \\T\\ Age) - 0(Both) 1c. LOC Commands (Open \\T\\ Closes Eyes/Water Restoration Technician) - 0(Both) 2. Best Gaze (Lateral Gaze Paresis) - 0(Normal) 3. Visual Field Loss - 0(No visual loss) 4. Facial Palsy - 2(Partial paralysis) 5a. Left Arm: Motor (10-second hold) - 1(Drift) 5b. Right Arm: Motor (10-second hold) - 0(No drift) 6a. Left Leg: Motor (5-second hold - always test supine) - 0(No drift) 6b. Right Leg: Motor (5-second hold - always test supine) - 0(No drift) 7. Limb Ataxia (finger/nose \\T\\ heel/pate - test with eyes open) - 0(Absent) 8. Sensory Loss (pinprick arms/legs/face) - 0(Normal) 9. Best Language: Aphasia (description/naming/reading) - 0(No aphasia) 10. Dysarthria (speech clarity - read or repeat words) - 0(Normal) 11. Extinction and Inattention (visual/tactile/auditory/spatial/personal) - 0(No abnormality) Initials: aa5 Signatures: Dispatcher [employer] EDKalie Erickson Audri, RN RN aa5 Joel Nguyen PA PA Madison Schrader RN RN tl2 Anna Canas 3 Alivia Allen RN RN ca1 Corrections: (The following items were deleted from the chart) 21:46 21:37 BP 158 / 88; Pulse 90bpm; Resp 18bpm; Pulse Ox 98% RA; tl2 tl2
--- NOTE | 2020-02-28 21:15 | P.HP ---
Certification for Inpatient Patient admitted to: Observation With expected LOS: <2 Midnights Practitioner: I am a practitioner with admitting privileges, knowledge of patient current condition, hospital course, and medical plan of care. Services: Services provided to patient in accordance with Admission requirements found in Title 42 Section 412.3 of the Code of Federal Regulations Patient History Date of Service: 02/28/20 Reason for admission: Slurred speech History of Present Illness: 74-year-old gentleman with a history multiple CVAs in the past with residual left-sided weakness and left facial droop was brought to the emergency department accompanied by the daughter because patient had sudden onset slurred speech, aphasia and confusion. Daughter stated patient has fallen multiple times since yesterday. Patient reports onset of headache about 2 days ago. According to the daughter patient was weaker than usual initially but he fully recovered his speech and was back to baseline with regards to his extremity weakness by the time he arrived in the ED. CT head in the ED is negative for acute stroke, it demonstrates significant encephalomalacia. MRI has been o btained and the result is pending. EKG demonstrated sinus rhythm. Patient is placed under observation for further evaluation for TIA. Allergies No Known Allergies Allergy (Verified 04/05/18 13:43) Home Medications: Gabapentin [Neurontin] 600 mg PO BID 01/13/18 Latanoprost Ophth [Xalatan 0.005%*] 1 gtt OPTH BEDTIME 01/13/18 Metformin HCl 1,000 mg PO BID 01/13/18 Multivitamin [One-A-Day Essential] 1 tab PO DAILY 01/13/18 Polyvinyl Alcohol [Artificial Tears] 1 gtt OPTH QID 01/13/18 Ramipril [Altace] 10 mg PO DAILY 01/13/18 Timolol 0.5% Opth [Timoptic 0.5% Opth*] 1 gtt OPTH BID 01/13/18 Vit A/Vit C/Vit E/Zinc/Copper [Preservision Areds Softgel] 1 cap PO DAILY 01/13/18 glipiZIDE [Glucotrol] 10 mg PO BID 01/13/18 Amlodipine [Norvasc*] 10 mg PO DAILY #30 tab 01/15/18 Clopidogrel Bisulfate [Plavix*] 75 mg PO DAILY #30 tablet 01/15/18 Atorvastatin Calcium [Lipitor] 20 mg PO BEDTIME 04/05/18 Aspirin [Aspirin EC 81 MG] 81 mg PO DAILY #30 tablet. 04/12/18 - Past Medical/Surgical History Diabetic: Yes -: Hypertension -: NIDDM -: CVA 12/2017 -: Cholecystectomy -: right Cataracts repair -: Appendectomy - Family History Mother -: Hypertension, Diabetes - Social History Smoking Status: Former smoker Alcohol use: No CD- Drugs: No Caffeine use: Yes Review of Systems Other: Except as documented, all other systems reviewed and negative. Physical Examination - Physical Exam General: Alert, In no apparent distress, Oriented x3 HEENT: Normocephalic, Mucous membr. moist/pink, EOMI, Sclerae nonicteric Neck: Supple, 2+ carotid pulse no bruit, JVD not distended Respiratory: Clear to auscultation bilaterally, Normal air movement Cardiovascular: No edema, Normal pulses, Regular rate/rhythm, Normal S1 S2 Gastrointestinal: Normal bowel sounds, Soft and benign, No tenderness Musculoskeletal: No swelling, No erythema, No tenderness Integumentary: No rashes Neurological: Normal speech, Other (Left-sided weakness-old unchanged) - Studies Laboratory Data (last 24 hrs) 02/28/20 17:55: PT 13.4 H, INR 1.14 02/28/20 17:55: WBC 8.1, Hgb 10.6 L, Hct 30.6 L, Plt Count 235 02/28/20 17:55: Sodium 141, Potassium 3.1 L, BUN 40 H, Creatinine 1.88 H, Glucose 71 L, Magnesium 1.9, Total Bilirubin 0.5, AST 13 L, ALT 14, Alkaline Phosphatase 73 Assessment and Plan - Problems (Diagnosis) (1) TIA (transient ischemic attack) Current Visit: Yes Status: Acute (2) Hyperlipidemia Current Visit: No Status: Chronic Qualifiers: (3) Hypertension Onset Date: 01/15/18 Current Visit: No Status: Chronic Qualifiers: (4) Type 2 diabetes mellitus Onset Date: 01/15/18 Current Visit: No Status: Chronic Qualifiers: - Plan Place under observation. Awaiting MRI of the brain result. Arrangement for him to wear an event monitor to assess for afib after his most recent CVA in 2018 was unsuccessful. Patient reports compliance with his ASA and plavix. Will obtain an echocardiogram. Neurology Consult. Patient prior or MRA of the brain demonstrated up brought trend occasion of the right middle cerebral artery which could be the culprit lesion causing the recurrent CVA. Will consult cardiology for arrangement for event monitor. Continue aspirin and Plavix Statin Check lipid profile Aggressive blood sugar control. Bedside swallow evaluation. - Advance Directives Does patient have a Living Will: No Does patient have a Durable POA for Healthcare: No
[2020-02-28] MEDS ORDERED: NA CHLORIDE 0.9% 1,000 ML IV SCH (23:34)
[2020-02-28] MEDS: D50W 25 GM/50 ML SYRINGE/VIAL IV PRN (23:58)
[2020-02-29] MEDS: ENOXAPARIN 30 MG/0.3 ML SQ SCH ×2 (00:14→08:15)
[2020-02-29 01:18] VITALS: BMI 24.3
[2020-02-29] MEDS ORDERED: KCL 20 MEQ/100 mL IVPB 20 MEQ/100 ML BAG IV SCH (02:00)
[2020-02-29] MEDS: D50W 25 GM/50 ML SYRINGE/VIAL IV PRN (05:17)
[2020-02-29] MEDS ORDERED: INSULIN -REGULAR HUMAN 50 UNIT/0.5 ML ML SQ SCH ×2 (06:00→07:30)
[2020-02-29 06:16] LABS: Absolute Lymphocytes (CBC) 1.3 K/uL (0.7-4.9); Basophils % 0.6 % (0-1.3); Lymphocytes % 24.8 % (15.3-44.8); MPV 8.4 fL (7.6-11.3); RBC Red Blood Cell Count 3.53 M/uL (4.33-5.43)
[2020-02-29] MEDS: D5 0.9 NS 1,000 ML IV SCH ×2 (06:33→15:28)
[2020-02-29 07:05] LABS: Magnesium 2.1 mg/dL (1.8-2.4); Phosphorus 2.7 mg/dL (2.5-4.9); Potassium 3.8 mmol/L (3.5-5.1); Thyroid Stimulating Hormone 2.15 uIU/mL (0.360-3.740)
[2020-02-29] MEDS ORDERED: HYDRALAZINE HCL 20 MG/ML VIAL IV ONE (07:59)
--- NOTE | 2020-02-29 08:06 | P.PN ---
Subjective Date of Service: 02/29/20 Chief Complaint: Slurred speech Subjective: No new changes Patient states he feels much better today. He denies any increased weakness. He has no trouble swallowing. Noted intermittent hypoglycemia since hospitalization. His neurologic symptoms could be secondary to hypoglycemia Physical Examination - Vital Signs Temperature: 97.0 F Blood Pressure: 151/64 Pulse: 62 Respirations: 18 Pulse Ox (%): 100 - Physical Exam General: Alert, In no apparent distress HEENT: Mucous membr. moist/pink Neck: Supple Respiratory: Clear to auscultation bilaterally, Normal air movement Cardiovascular: No edema, Normal pulses, Regular rate/rhythm, Normal S1 S2 Gastrointestinal: Normal bowel sounds, Soft and benign, No tenderness Musculoskeletal: No swelling, No tenderness Integumentary: No rashes Neurological: Other (Left-sided weakness, left facial droop.) - Studies Laboratory Data (last 24 hrs) 02/28/20 17:55: PT 13.4 H, INR 1.14 02/28/20 17:55: WBC 8.1, Hgb 10.6 L, Hct 30.6 L, Plt Count 235 02/28/20 17:55: Sodium 141, Potassium 3.1 L, BUN 40 H, Creatinine 1.88 H, Glucose 71 L, Magnesium 1.9, Total Bilirubin 0.5, AST 13 L, ALT 14, Alkaline Phosphatase 73 Assessment And Plan - Current Problems (Diagnosis) (1) TIA (transient ischemic attack) Current Visit: Yes Status: Acute (2) Hyperlipidemia Current Visit: No Status: Chronic Qualifiers: (3) Hypertension Onset Date: 01/15/18 Current Visit: No Status: Chronic Qualifiers: (4) Type 2 diabetes mellitus Onset Date: 01/15/18 Current Visit: No Status: Chronic Qualifiers: (5) Hypoglycemia Current Visit: Yes Status: Acute - Plan MRI of the brain: No acute changes. Dr. Cardenas informed to assist with arrangement for event monitor as an outpatient. Continue telemetry Continue aspirin and Plavix. Continue lipitor. Lipid profile reviewed and parameters are within normal range. Patient prior or MRA of the brain demonstrated up brought trend occasion of the right middle cerebral artery which could be the culprit lesion causing the recurrent CVA. Hold glipizide. Insulin sliding scale D5 normal saline for hypoglycemia. Monitor blood glucose for 1 more day given hypoglycemia secondary to oral hypoglycemic.
[2020-02-29] MEDS: ASPIRIN EC 81 MG TAB PO SCH (08:15)
[2020-02-29] MEDS: CLOPIDOGREL 75 MG TABLET PO SCH (08:16)
[2020-02-29] MEDS ORDERED: POTASSIUM CL SA 10 MEQ TAB PO ONE (09:00)
[2020-02-29] MEDS ORDERED: PNEUMOCOCCAL VACCINE 0.5 ML IMVAC ONE (11:00)
[2020-02-29] MEDS: INSULIN -REGULAR HUMAN 50 UNIT/0.5 ML ML SQ SCH ×3 (11:30→21:00)
[2020-02-29] MEDS: glipiZIDE 5 MG TAB PO SCH ×2 (13:25→21:00)
[2020-02-29] MEDS ORDERED: PHENOL 1.4% ORAL SPRAY 180ML MM PRN (16:07)
[2020-02-29] MEDS ORDERED: ATORVASTATIN 20 MG TAB PO SCH (21:00)
[2020-02-29] MEDS: HYDRALAZINE HCL 20 MG/ML VIAL IV PRN (21:24)
[2020-02-29] MEDS: GABAPENTIN 300 MG CAP PO SCH (21:24)
[2020-03-01] MEDS: HYDRALAZINE HCL 20 MG/ML VIAL IV PRN (04:42)
[2020-03-01 05:56] LABS: Absolute Lymphocytes (CBC) 1.5 K/uL (0.7-4.9); Basophils % 0.6 % (0-1.3); Hematocrit 30.9 % (39.6-49.0); Lymphocytes % 23.6 % (15.3-44.8); RBC Red Blood Cell Count 3.45 M/uL (4.33-5.43)
[2020-03-01] MEDS: D50W 25 GM/50 ML SYRINGE/VIAL IV PRN (06:25)
[2020-03-01] MEDS: INSULIN -REGULAR HUMAN 50 UNIT/0.5 ML ML SQ SCH ×3 (07:30→15:43)
[2020-03-01] MEDS: ASPIRIN EC 81 MG TAB PO SCH (08:02)
[2020-03-01] MEDS: ENOXAPARIN 30 MG/0.3 ML SQ SCH (08:02)
[2020-03-01] MEDS: GABAPENTIN 300 MG CAP PO SCH (08:03)
[2020-03-01] MEDS: CLOPIDOGREL 75 MG TABLET PO SCH (08:03)
--- NOTE | 2020-03-01 08:06 | P.PN ---
Subjective Date of Service: 03/01/20 Chief Complaint: Slurred speech Patient has been experiencing intermittent hypoglycemia episodes secondary to oral hypoglycemics. He stated he ambulated in the hallway with a walker. His neurologic symptoms could be secondary to hypoglycemia. Physical Examination - Vital Signs Temperature: 97.4 F Blood Pressure: 176/70 Pulse: 83 Respirations: 16 Pulse Ox (%): 98 - Physical Exam General: Alert, In no apparent distress Respiratory: Clear to auscultation bilaterally, Normal air movement Cardiovascular: No edema, Regular rate/rhythm, Normal S1 S2 Gastrointestinal: Normal bowel sounds, Soft and benign, No tenderness Musculoskeletal: No swelling Integumentary: No rashes Assessment And Plan - Current Problems (Diagnosis) (1) TIA (transient ischemic attack) Current Visit: Yes Status: Acute (2) Hyperlipidemia Current Visit: No Status: Chronic Qualifiers: (3) Hypertension Onset Date: 01/15/18 Current Visit: No Status: Chronic Qualifiers: (4) Type 2 diabetes mellitus Onset Date: 01/15/18 Current Visit: No Status: Chronic Qualifiers: (5) Hypoglycemia Current Visit: Yes Status: Acute - Plan MRI of the brain: No acute changes. Dr. Cardenas informed to assist with arrangement for event monitor as an outpatient. Continue aspirin and Plavix. Continue lipitor. Lipid profile reviewed and parameters are within normal range. Patient prior or MRA of the brain demonstrated up brought trend occasion of the right middle cerebral artery which could be the culprit lesion causing the recurrent CVA. Hold glipizide. Insulin sliding scale D5 normal saline for hypoglycemia. Continue to monitor blood sugar. Discharge once blood sugar readings are stable for 24 hours.
[2020-03-01] MEDS: D5 0.9 NS 1,000 ML IV SCH (08:10)
[2020-03-01] MEDS ORDERED: HOME MED 1 EA UNK (Ramipril [Altace] 10 MG) PO SCH (09:00)
[2020-03-01] MEDS ORDERED: AMLODIPINE 10 MG TAB PO SCH (09:00)
[2020-03-01] MEDS ORDERED: ramipriL 5 MG CAP PO SCH (09:00)
[2020-03-01] MEDS ORDERED: ROPINIROLE HCL 0.25 MG TAB PO SCH (09:00)
[2020-03-01 12:57] VITALS: O2SAT 98
[2020-03-01 17:53] VITALS: BP 134/66; TEMP 98.6
--- NOTE | 2020-03-03 05:41 | CON ---
Date of Consultation: 02/29/2020 Reason For Consultation: History of recurrent CVA. History: This is a 74-year-old man, history of CVA with left-sided weakness, facial droop. Brought to emergency department because of sudden onset of slurred speech, aphasia, and confusion. Patient h ad multiple falls and had headache prior to the presentation to the emergency room. CT was negative for acute stroke. An EKG was sinus rhythm. I was asked to evaluate for recurrent CVA. Past Medical History: As outlined above in the HPI. He has history of CVA, diabetes, hypertension, dyslipidemia. Medications: Refer to reconciliation sheet for detailed list. Allergies: NO KNOWN DRUG ALLERGIES. Social History: He does not smoke or drink. Does not use any drugs. He is an ex-smoker. Past Surgical History: Cholecystectomy, appendectomy, right cataract repair. Family History: No premature coronary artery disease or cancer. Review of Systems: All systems reviewed were negative except for mentioned in HPI. Physical Examination: Vital Signs: Reviewed. General: This is an elderly male in no distress. Head and Neck: Pupils are equal, reactive to light. Intact eye movements. No JVD. No cervical lym phadenopathy. Neck: Supple. Thyroid is not enlarged. Lungs: Clear to auscultation bilaterally causing crackles. No accessory muscle use. Heart: Regular rate and rhythm. No extra sounds. Abdomen: Soft, nontender. Bowel sounds positive. No organomegaly. No masses or hernia. No rigidi ty or rebound. Extremities: No clubbing, cyanosis. Intact pulses. Skin: No rash. Neurologic: Alert, awake, with significant left-sided weakness. Lymph Nodes: No cervical or axillary lymphadenopathy. Investigations: Labs were reviewed. MRI is pending. Assessment And Plan: Transient ischemic attack versus stroke. I recommend a carotid Doppler and ech ocardiogram with bubble study. Also a long-term monitor for at least 30 days to evaluate for possibl e atrial fibrillation that is paroxysmal. Further recommendations based on above workup. SR/MODL Voice ID: [id number] Report ID: [id number]
== END 2020-03-01 19:46 | disposition home or self-care (01) | DRG 69 ==
LOC: ER 17:35 → ERHOLD 21:23 → 4TH 22:57 → 2ND 02-29 14:31 → OBSVTOIN 03-01 10:43
PROVIDERS: ADMIT Internal Medicine; ATTEND Internal Medicine
DX: G45.9 Transient cerebral ischemic attack, unspecified (principal); I69.354 Hemiplegia and hemiparesis following cerebral infarction affecting left non-dominant side; I69.392 Facial weakness following cerebral infarction; I10 Essential (primary) hypertension; E78.5 Hyperlipidemia, unspecified; E11.649 Type 2 diabetes mellitus with hypoglycemia without coma; W18.30XA Fall on same level, unspecified, initial encounter; Z79.84 Long term (current) use of oral hypoglycemic drugs; Z79.02 Long term (current) use of antithrombotics/antiplatelets; Z79.82 Long term (current) use of aspirin; Z79.899 Other long term (current) drug therapy; Z90.49 Acquired absence of other specified parts of digestive tract; Z87.891 Personal history of nicotine dependence
CPT/HCPCS: 36415; 70450; 70544; 70551; 71045; 80048; 80061; 80076; 81003; 81015; 82947; 83735; 83880; 84100; 84132; 84443; 84484; 85025; 85610; 85652; 93005; 94760; 96365; 96366; 96375; 97112; 97116; 97161; 99285; G0378; J0360; J1650; J7030; J7042; U0002

== ENCOUNTER 2023-06-01 09:23 | Inpatient (IN) | payer OTHER ==
--- OUTSIDE RECORDS SUMMARY | 2023-06-01 09:25 | XMS REPORT | Continuity of Care Document ---
:1945 Author Organization [facility] t Address [address] [place] [id number] Care Team Providers Name Role Phone Unavailable [...] send to the main Lab for analysi saNin
[2023-06-01] MEDS ORDERED: BACI/NEOMYCIN/POLY OINT 15GM TOP ONE (10:28)
[2023-06-01] MEDS ORDERED: NA CHLORIDE 0.9% 500 ML ONE (10:28)
--- NOTE | 2023-06-01 10:36 | RAD REPORT ---
EXAM DESCRIPTION: CT - Head C Spine Cap Wo Con - 06/01/2023 10:02 am CLINICAL HISTORY: PAIN. Fall last night. Laceration and bruising to forehead, left lipoma and top of head COMPARISON: MRA Head Wo Cont dated 02/28/2020; Ct Stroke Brain Wo Cont dated 02/28/2020; Brain Wo Cont dated 02/28/2020 TECHNIQUE: Head and cervical spine CT images were obtained without IV contrast. Chest, abdomen, and pelvis CT images were obtained also without IV contrast. Multiplanar reformats were generated and rev iewed. All CT scans are performed using dose optimization technique as appropriate and may include automated exposure control or mA/KV adjustment according to patient size. FINDINGS: CT HEAD: No intracranial hemorrhage, mass effect, or edema. No evidence of acute territorial infarct. Stable e ncephalomalacia in the right frontoparietal region with ex vacuo right lateral ventricle dilation. No midline shift or abnormal fluid collection. The ventricles are normal in caliber and configuration f or age. Basal cisterns are patent. Mastoid aircells and paranasal sinuses are clear. No acute skull f racture. Frontal scalp and vertex/ left parietal scalp swelling CT CERVICAL SPINE: No acute cervical spine fracture or subluxation. Vertebral body heights are well maintained. Facet garcia ints are normal in alignment. No hyperattenuating canal hematoma. Prevertebral and paraspinous soft t issues are unremarkable. CT CHEST: No pneumothorax, pulmonary contusion or pleural fluid collection. No mediastinal hematoma and the aor ta and pulmonary arteries are unremarkable. No chest will mass or abnormal axillary finding. No displ aced rib fracture or other significant bony finding. CT ABDOMEN/ PELVIS: No evidence of traumatic injury to solid abdominal viscera. Calcified ovoid posterior right lobe subc apsular 2.7 cm hepatic lesion, may be iatrogenic or related to chronic cyst, hemorrhage, or involuted hemangioma. Gallbladder was surgically removed. . No bowel injury or significant finding. Up to mode rate stool burden throughout the colon. No free air, free fluid or abnormal fat stranding. No urinary bladder abnormality. No significant bony finding. IMPRESSION: No acute traumatic abnormalities. Frontal and vertex/left parietal scalp swelling. Chronic findings as above.
[2023-06-01 11:41] LABS: Absolute Lymphocytes (CBC) 0.8 K/uL (0.7-4.9); Hematocrit 37.7 % (39.6-49.0); Lymphocytes % 5.2 % (15.3-44.8); MCV 93.3 fL (80-100); MPV 8.7 fL (7.6-11.3); Platelets 254 thou/uL (152-406); RBC Red Blood Cell Count 4.04 M/uL (4.33-5.43)
[2023-06-01] MEDS ORDERED: TDAP (DIPHTH,PERTUSS(ACELL),TET VAC) 0.5 ML VIAL IMVAC ONE (11:55)
[2023-06-01 12:14] LABS: Albumin 3.6 g/dL (3.4-5.0); Bilirubin Total 1.3 mg/dL (0.2-1.0); Potassium 4.7 mEq/L (3.5-5.1); Protein, Total 7.2 g/dL (6.4-8.2)
[2023-06-01 12:15] LABS: Troponin High Sensitivity 144.7 pg/mL (<58.9)
[2023-06-01] MEDS ORDERED: INSULIN -REGULAR HUMAN 50 UNIT/0.5 ML ML ONE (13:03)
[2023-06-01] MEDS ORDERED: INSULIN GLARGINE 100 UNIT/ML SQ ONE (13:03)
[2023-06-01] MEDS ORDERED: CEFTRIAXONE 1000 MG/VIAL ONE (13:04)
[2023-06-01] MEDS ORDERED: FAMOTIDINE 20 MG/2 ML VIAL IV ONE (13:04)
[2023-06-01] MEDS ORDERED: ASPIRIN 81 MG CHEWABLE TABLET ONE (13:04)
--- NOTE | 2023-06-01 13:15 | ER ---
Nurse's Notes [facility] Name: Bryon Hopson Age: 77 yrs Sex: Male : 1945 Arrival Date: 06/01/2023 Time: 09:23 Bed 8 Private MD: Christopher Britt Diagnosis: Repeated falls;Fall on same level, unspecified;Unspecified injury of head, initial encounter;Acute kidney failure, unspecified-on chronic;Type 2 diabetes mellitus with hyperglycemia;Non ST elevation [place];Rhabdomyolysis;Elevated white blood cell count Presentation: 06/01 09:41 Chief complaint: Patient's son or daughter states: patient lives alone, fell at some ko1 point last night in bathroom, patient doesn't remember falling. Care prior to arrival: None. Mechanism of Injury: Fall from standing position. :41 Acuity: MERE 3 ko1 09:41 Method Of Arrival: Wheelchair ko1 09:45 Coronavirus screen: At this time, the client does not indicate any symptoms associated ko1 with coronavirus-19. Ebola Screen: No symptoms or risks identified at this time. Initial Sepsis Screen: Does the patient meet any 2 criteria? No. Patient's initial sepsis screen is negative. Does the patient have a suspected source of infection? No. Patient's initial sepsis screen is negative. Risk Assessment: Do you want to hurt yourself or someone else? Patient reports no desire to harm self or others. Onset of symptoms was June 01, 2023. Trauma Activation: Not Applicable Physician: ED Physician; Name: ; Notified At: ; Arrived At: Physician: General Surgeon; Name: ; Notified At: ; Arrived At: Physician: Radiology; Name: ; Notified At: ; Arrived At: Physician: Respiratory; Name: ; Notified At: ; Arrived At: Physician: Lab; Name: ; Notified At: ; Arrived At: Historical: - Allergies: :46 No Known Allergies; ko1 - PMHx: :46 CVA - left sided weakness; Diabetes - NIDDM; Hypertension; ko1 - Immunization history: Last tetanus immunization: unknown. - Social history:: Smoking status: Patient reports the use of cigarette tobacco products, smokes one-half pack cigarettes per day. Screenin:41 Abuse screen: Denies threats or abuse. Denies injuries from another. Tuberculosis ko1 screening: No symptoms or risk factors identified. 17:56 [facility] ED Fall Risk Assessment (Adult) History of falling in the last 3 months, iw including since admission Yes- physiologic fall (2 pts). Nutritional screening: No deficits noted. Primary Survey: 09:41 NO uncontrolled hemorrhage observed. A: The client is awake and alert. The airway is ko1 patent. Breathing/Chest: Spontaneous respiratory effort, equal unlabored respirations, breath sounds clear bilaterally, regular pattern, symmetrical chest rise and fall. Circulation: No external hemorrhage present. Regular and strong central pulse, skin warm/dry/normal color. Disability Pupils are equal, round, reactive to light and accommodation. Client is alert. Exposure/Environment: There is no evidence of uncontrolled external bleeding. Assessment: 09:41 General: Appears in no apparent distress. Behavior is calm, cooperative. ko1 09:41 Pain: Denies pain. ko1 10:45 Reassessment: Attempted to collect urine specimen with straight cath - catheter unable ld1 to advance, pt c/o pain while attempting to insert. Removed cath \T\ notified ERP. Vital Signs: 09:45 BP 121 / 108; Pulse 91; Resp 16; Temp 98.1; Pulse Ox 100% ; Weight 72.57 kg; ko1 11:58 BP 147 / 99; Pulse 89; Resp 18; Pulse Ox 100% on R/A; ld1 13:43 BP 137 / 98; Pulse 90; Resp 18; Pulse Ox 100% on R/A; ld1 16:36 BP 133 / 76; Pulse 80; Resp 16; Pulse Ox 100% on R/A; iw [place] Coma Score: 09:41 Eye Response: spontaneous(4). Motor Response: obeys commands(6). Verbal Response: ko1 oriented(5). Total: 15. Trauma Score (Adult): 09:41 Eye Response: spontaneous(1); Verbal Response: oriented(1); Motor Response: obeys ko1 commands(2); Systolic BP: > 89 mm Hg(4); Respiratory Rate: 10 to 29 per min(4); [place] Score: 15; Trauma Score: 12 ED Course: 09:25 Patient arrived in ED. rg4 09:25 Christopher Britt MD is Private Physician. rg4 09:29 Joel Mendez MD is Attending Physician. rosario 09:41 Patient has correct armband on for positive identification. ko1 09:42 Triage completed. ko1 09:46 Arm band placed on right wrist. Patient placed in an exam room, on a stretcher, on ko1 pulse oximetry, Patient notified of wait time. 09:55 Lilia Singh, RN is Primary Nurse. ld1 10:03 CT Traumagram (Head C Spine CAP wo con) In Process Unspecified. EDMS 11:10 Missed attempt(s): 20 gauge in right forearm. ld1 11:15 Missed attempt(s): 20 gauge in right antecubital area. ld1 13:07 Nicolas Morales MD is Hospitalizing Provider. [facility] 17:20 Provided Education on: soto insertion . iw 17:40 No provider procedures requiring assistance completed. Patient admitted, IV remains in iw place. 17:56 Urine collected: Soto catheter specimen, clear, Amount Returned: 250mL. Soto cath iw inserted, using sterile technique, 12 Fr., by me, balloon inflated, to gravity drainage, urine specimen collected. Administered Medications: 12:03 Drug: Tetanus Toxoid,Adsorbed IM 0.5 ml {Nutritional Services Director: [employer] Exp: iw 01/05/2025. Lot #: [id number]. } Route: IM; Site: right deltoid; 12:34 Drug: Insulin Regular Human IVP 10 units {Co-Signature: ld1 (Lilia Singh RN).} Route: iw IVP; Site: left jugular; 12:52 Drug: NS 0.9% IV 500 ml Route: IV; Rate: bolus; Site: right jugular; ld1 12:52 Drug: Htzekygy-Wyayizjhrf-Fakvnyoij Topical Ointment 1 application Route: Topical; ld1 Site: affected area; 13:07 Drug: Famotidine IVP 20 mg Route: IVP; Site: left jugular; iw 13:07 Drug: Aspirin PO Chewable Tablet 162 mg Route: PO; iw 13:07 Drug: NS 0.9% IV 1000 ml Route: IV; Rate: 1 bolus; Site: left jugular; iw 13:40 Drug: Rocephin IV 1 grams Route: IV; Rate: per protocol; Site: left antecubital; ld1 13:40 Drug: Insulin Glargine Sub-Q 25 units Route: Sub-Q; Site: right upper arm; iw 13:40 Drug: NS 0.9% IV 1000 ml Route: IV; Rate: 125 ml/hr; Site: left antecubital; ld1 13:53 Drug: NS 0.9% IV 1000 ml Route: IV; Rate: 1 bolus; Site: left jugular; ld1 Medication: 17:56 VIS not applicable for this client. iw Outcome: 13:15 Decision to Hospitalize by Provider. rosario 17:57 Admitted to Med/surg accompanied by josé miguel, Report called to JENNIFER Morgan iw 17:57 Condition: good 17:57 Instructed on the need for admit, Demonstrated understanding of instructions. 18:23 Patient left the ED. iw Signatures: Dispatcher [employer] EDMS Jole Mendez MD MD cha Williams, Irene, RN JENNIFER iw Selam Araujo4 Lilia Singh RN RN ld1 Keira Alexandre RN RN ko1 Lilia Singh RN ld1 Corrections: (The following items were deleted from the chart) 09:42 09:41 Pain: Complains of pain in face ko1 ko1 12:00 11:59 Missed attempt(s): 20 gauge in right forearm. ld1 ld1
--- NOTE | 2023-06-01 13:15 | EDPHYS ---
Physician Documentation [facility] Name: Bryon Hopson Age: 77 yrs Sex: Male : 1945 Arrival Date: 06/01/2023 Time: 09:23 Bed 8 Private MD: Christopher Britt ED Physician Joel Mendez HPI: 06/01 11:38 This 77 yrs old Male presents to ER via Wheelchair with complaints of Fall rosario Injury. 11:38 Details of fall: The patient fell from an upright position, while walking. Onset: The rosario symptoms/episode began/occurred last night. Associated injuries: The patient sustained injury to the head, contusion, hematoma, pain. Severity of symptoms: At their worst the symptoms were mild, in the emergency department the symptoms are unchanged. The patient has experienced similar episodes in the past, several times. Historical: - Allergies: :46 No Known Allergies; ko1 - PMHx: :46 CVA - left sided weakness; Diabetes - NIDDM; Hypertension; ko1 - Immunization history: Last tetanus immunization: unknown. - Social history:: Smoking status: Patient reports the use of cigarette tobacco products, smokes one-half pack cigarettes per day. ROS: 11:40 Constitutional: Negative for fever, chills, and weight loss, Eyes: Negative for injury, rosario pain, redness, and discharge, ENT: Negative for injury, pain, and discharge, Neck: Negative for injury, pain, and swelling, Cardiovascular: Negative for chest pain, palpitations, and edema, Respiratory: Negative for shortness of breath, cough, wheezing, and pleuritic chest pain, Abdomen/GI: Negative for abdominal pain, nausea, vomiting, diarrhea, and constipation, Back: Negative for injury and pain, : Negative for injury, bleeding, discharge, and swelling, MS/Extremity: Negative for injury and deformity, Skin: Negative for injury, rash, and discoloration, Neuro: Negative for headache, weakness, numbness, tingling, and seizure, Psych: Negative for depression, anxiety, suicide ideation, homicidal ideation, and hallucinations, Allergy/Immunology: Negative for hives, rash, and allergies, Endocrine: Negative for neck swelling, polydipsia, polyuria, polyphagia, and marked weight changes, Hematologic/Lymphatic: Negative for swollen nodes, abnormal bleeding, and unusual bruising. 11:40 Neuro: Positive for weakness. Exam: 11:40 Constitutional: This is a well developed, well nourished patient who is awake, alert, rosario and in no acute distress. Head/Face: Normocephalic, atraumatic. Eyes: Pupils equal round and reactive to light, extra-ocular motions intact. Lids and lashes normal. Conjunctiva and sclera are non-icteric and not injected. Cornea within normal limits. Periorbital areas with no swelling, redness, or edema. ENT: Nares patent. No nasal discharge, no septal abnormalities noted. Tympanic membranes are normal and external auditory canals are clear. Oropharynx with no redness, swelling, or masses, exudates, or evidence of obstruction, uvula midline. Mucous membranes moist. Neck: Trachea midline, no thyromegaly or masses palpated, and no cervical lymphadenopathy. Supple, full range of motion without nuchal rigidity, or vertebral point tenderness. No Meningismus. Chest/axilla: Normal chest wall appearance and motion. Nontender with no deformity. No lesions are appreciated. Cardiovascular: Regular rate and rhythm with a normal S1 and S2. No gallops, murmurs, or rubs. Normal PMI, no JVD. No pulse deficits. Respiratory: Lungs have equal breath sounds bilaterally, clear to auscultation and percussion. No rales, rhonchi or wheezes noted. No increased work of breathing, no retractions or nasal flaring. Abdomen/GI: Soft, non-tender, with normal bowel sounds. No distension or tympany. No guarding or rebound. No evidence of tenderness throughout. Back: No spinal tenderness. No costovertebral tenderness. Full range of motion. Male : Normal genitalia with no discharge or lesions. Skin: Warm, dry with normal turgor. Normal color with no rashes, no lesions, and no evidence of cellulitis. MS/ Extremity: Pulses equal, no cyanosis. Neurovascular intact. Full, normal range of motion. Neuro: Awake and alert, GCS 15, oriented to person, place, time, and situation. Cranial nerves II-XII grossly intact. Motor strength 5/5 in all extremities. Sensory grossly intact. Cerebellar exam normal. Normal gait. Psych: Awake, alert, with orientation to person, place and time. Behavior, mood, and affect are within normal limits. 11:40 ECG was reviewed by the Attending Physician. Vital Signs: 09:45 BP 121 / 108; Pulse 91; Resp 16; Temp 98.1; Pulse Ox 100% ; Weight 72.57 kg; ko1 11:58 BP 147 / 99; Pulse 89; Resp 18; Pulse Ox 100% on R/A; ld1 13:43 BP 137 / 98; Pulse 90; Resp 18; Pulse Ox 100% on R/A; ld1 16:36 BP 133 / 76; Pulse 80; Resp 16; Pulse Ox 100% on R/A; iw [place] Coma Score: 09:41 Eye Response: spontaneous(4). Motor Response: obeys commands(6). Verbal Response: ko1 oriented(5). Total: 15. Trauma Score (Adult): 09:41 Eye Response: spontaneous(1); Verbal Response: oriented(1); Motor Response: obeys ko1 commands(2); Systolic BP: > 89 mm Hg(4); Respiratory Rate: 10 to 29 per min(4); [place] Score: 15; Trauma Score: 12 Procedures: 12:14 Peripheral line: by aseptic technique a peripheral line was placed in the left external rosario jugular vein. MDM: 09:29 Patient medically screened. [facility] 11:42 Differential Diagnosis altered mental status. Differential diagnosis: abrasion, closed rosario head injury, contusion, fracture, laceration, multiple trauma, sprain, strain. Data reviewed: vital signs, nurses notes, lab test result(s), EKG, radiologic studies, CT scan. Consideration of Admission/Observation Escalation of care including admission/observation considered. I considered the following discharge prescriptions or medication management in the emergency department Medications were administered in the Emergency Department. See MAR. Independent interpretation of the following test(s) in the Emergency Department EKG: See my EKG interpretation above. Test considered but Not performed: MRI: no mri. Care significantly affected by the following chronic conditions: Diabetes, Hypertension, left side weakness. Counseling: I had a detailed discussion with the patient and/or guardian regarding the historical points, exam findings, and any diagnostic results supporting the discharge/admit diagnosis, lab results, radiology results, the need for outpatient follow up, for definitive care, a family practitioner, a neurologist. 06/01 09:50 Order name: CBC with Diff rosario 06/01 09:50 Order name: Comprehensive Metabolic Panel; Complete Time: 12:16 [facility] 06/01 09:50 Order name: Urinalysis w/ reflexes [facility] 06/01 09:50 Order name: CPK; Complete Time: 12:16 [facility] 06/01 09:50 Order name: Troponin HS; Complete Time: 12:16 [facility] 06/01 09:50 Order name: Lipase; Complete Time: 12:16 [facility] 06/01 12:16 Order name: Blood Culture Adult (2) [facility] 06/01 12:16 Order name: Lactate w/ 2H reflex if indic. [facility] 06/01 13:24 Order name: CBC Smear Scan [facility] 06/01 16:47 Order name: Glucose, Ancillary Testing [facility] 06/01 17:02 Order name: Lactate Sepsis 2 HR Follow-up [facility] 06/01 09:50 Order name: CT Traumagram (Head C Spine CAP wo con); Complete Time: 11:19 [facility] 06/01 09:50 Order name: EKG; Complete Time: 09:50 [facility] 06/01 15:30 Order name: Regular [facility] 06/01 09:50 Order name: Wound Care; Complete Time: 10:14 [facility] 06/01 09:50 Order name: EKG - Nurse/Tech; Complete Time: 11:41 [facility] 06/01 17:13 Order name: Sanders; Complete Time: 17:40 [facility] EC:40 Rate is 86 beats/min. Rhythm is regular. QRS [place] is Normal. [place] interval is normal. QRS rosario interval is normal. QT interval is normal. No Q waves. T waves are Normal. No ST changes noted. Clinical impression: Normal ECG, NSR w/ Non-specific ST/T Changes, and No evidence of ischemia. Interpreted by me. Reviewed by me. Administered Medications: 12:03 Drug: Tetanus Toxoid,Adsorbed IM 0.5 ml {Weave Room Supervisor: [employer] Exp: 01/05/2025. Lot #: [id number]. } Route: IM; Site: right deltoid; 12:34 Drug: Insulin Regular Human IVP 10 units {Co-Signature: ld1 (Lilia Singh RN).} Route: iw IVP; Site: left jugular; 12:52 Drug: NS 0.9% IV 500 ml Route: IV; Rate: bolus; Site: right jugular; ld1 12:52 Drug: Vcpgeoyg-Uofmfgozpo-Cgpxppuyt Topical Ointment 1 application Route: Topical; ld1 Site: affected area; 13:07 Drug: Famotidine IVP 20 mg Route: IVP; Site: left jugular; iw 13:07 Drug: Aspirin PO Chewable Tablet 162 mg Route: PO; iw 13:07 Drug: NS 0.9% IV 1000 ml Route: IV; Rate: 1 bolus; Site: left jugular; iw 13:40 Drug: Rocephin IV 1 grams Route: IV; Rate: per protocol; Site: left antecubital; ld1 13:40 Drug: Insulin Glargine Sub-Q 25 units Route: Sub-Q; Site: right upper arm; iw 13:40 Drug: NS 0.9% IV 1000 ml Route: IV; Rate: 125 ml/hr; Site: left antecubital; ld1 13:53 Drug: NS 0.9% IV 1000 ml Route: IV; Rate: 1 bolus; Site: left jugular; ld1 Disposition Summary: 06/01/23 13:15 Hospitalization Ordered Hospitalization Status: Inpatient Admission rosario Provider: Nicolas Morales cha Location: Telemetry/MedSurg (Inpatient) rosario Condition: Fair rosario Problem: new rosario Symptoms: have improved rosario Bed/Room Type: Standard rosario Room Assignment: 219(06/01/23 16:50) rd2 Diagnosis - Repeated falls rosario - Fall on same level, unspecified rosario - Unspecified injury of head, initial encounter rosario - Acute kidney failure, unspecified - on chronic rosario - Type 2 diabetes mellitus with hyperglycemia rosario - Non ST elevation [place] rosario - Rhabdomyolysis rosario - Elevated white blood cell count rosario Discharge Instructions: - Discharge Summary Sheet rosario - Head Injury, Adult rosario - Fall Prevention in the Home, Adult rosario - Weakness rosario - Fatigue rosario - Fall Prevention in the Home, Adult, [id number] rosario - Weakness, Kfnh-[id number] rosario - Head Injury, Adult, [id number]-wr-[id number] rosario - Deconditioning rosario Forms: - Medication Reconciliation Form rosario - SBAR form rosario - Leadership Thank You Letter rosario Signatures: Dispatcher [employer] Joel Roca MD MD cha Williams, Irene, RN RN iw Jackson, Kandis kj1 Lilia Singh RN RN ld1 Keira Alexandre RN RN Milagro De Jesus RN RN rd2 Lilia Singh RN1 Corrections: (The following items were deleted from the chart) 16:41 13:15 rosario kj1 16:50 16:41 [facility] kj rd2
[2023-06-01 13:27] LABS: White Blood Cell Scan OK (OK)
[2023-06-01 13:28] LABS: Blood Morphology Comment NOT SEEN (NOT SEEN); Platelet Estimate ADEQ
[2023-06-01] MEDS ORDERED: NA CHLORIDE 0.9% 1,000 ML ONE (14:04)
[2023-06-01] MEDS ORDERED: D10W 250 ML BAG IV PRN (15:30)
[2023-06-01] MEDS ORDERED: GLUCAGON 1 MG/VIAL IM PRN (15:30)
--- NOTE | 2023-06-01 15:32 | P.HP ---
Patient History Date of Service: 06/01/23 Reason for admission: injury fall History of Present Illness: 77-year-old male presents to ER via wheelchair with complaints of fall injury. Patient's family at bedside reports bringing him dinner last night which was the last time they saw him sitting upright and doing well. Patient's family came this morning to bring breakfast and found him on the floor at which time they helped him up and he ate breakfast. His daughter drove him to her house and gave him a shower then brought him to the ER to be looked at. Patient has injuries to the forehead and left eye consistent of abrasions and bruising. Patient has injuries to bilateral lower extremities consistent of bruising. Patient states he is wheelchair-bound but is able to transfer independently. Patient's family reports vehicles arriving at his home bringing unknown substances into the house. Patient denies alcohol but does smoke 8 to 9 cigarettes a day and denies drug use. Patient has a past medical history of CVA with left-sided weakness, diabetes, hypertension. ED course: WBC 16, sodium 133, anion gap 15.7, BUN/creatinine 54/3.02, lactic acid 3.2 with repeat draw 4.0, glucose 566, creatinine kinase 3509, troponin at 144.7. UA reveals leukocyte Estrace 75, nitrites negative, white blood cells 20- 50, bacteria < 20, and was sent for culture. CT of head C-spine Without contrast reveals no acute traumatic abnormalities, frontal and vertex/left parietal scalp swelling. Patient will be admitted and treated for rhabdomyolysis and hyperosmolar hyperglycemic state. Allergies No Known Allergies Allergy (Verified 02/28/20 23:50) - Past Medical/Surgical History Diabetic: Yes -: Hypertension -: NIDDM -: CVA 12/2017 -: strokes x 2 -: Cholecystectomy -: right Cataracts repair -: Appendectomy - Family History Mother -: Hypertension, Diabetes - Social History Alcohol use: Yes CD- Drugs: No Caffeine use: Yes Review of Systems General: Malaise Eyes: Other (left orbital abrasion) Respiratory: Unremarkable Cardiovascular: Unremarkable Gastrointestinal: Unremarkable Genitourinary: Unremarkable Musculoskeletal: Unremarkable Neurological: Unremarkable Physical Examination - Physical Exam General: Alert, Oriented x3, Disheveled HEENT: Normocephalic, Other (bruising and abrasion to forehead) Neck: Supple, 2+ carotid pulse no bruit, JVD not distended Respiratory: Clear to auscultation bilaterally, Normal air movement Cardiovascular: No edema, Normal pulses, Regular rate/rhythm, Normal S1 S2 Capillary refill: <2 Seconds Gastrointestinal: Normal bowel sounds, Soft and benign, Non-distended Musculoskeletal: No clubbing, No swelling, Erythema Neurological: Normal gait, Abnormal speech (mumbling), Abnormal strength - Studies Laboratory Data (last 24 hrs) 06/01/23 06/01/23 11:30 11:30 WBC 16.00 H Hgb 12.9 L Hct 37.7 L Plt Count 254 Sodium 133 L Potassium 4.7 BUN 54 H Creatinine 3.02 H Glucose 566 H* Total Bilirubin 1.3 H AST 69 H ALT 28 Alkaline Phosphatase 85 Lipase 38 Assessment and Plan - Plan Assessment and plan Acute Rhabdomyolysis Chronic kidney disease -telemetry -CK 3509 -anion gap 15.7 -K 4.7 -monitor electrolytes in AM labs -IVF -BUN/Creat 54/3.02 -consider nephrology consult in the AM Hyperosmolar hyperglycemia in patient with DM type 2 Acute metabolic acidosis -Accucheck with SSI -anion gap 15.7 -serum glucose 566 -bedside glucose 122 at 1600 -IVF Trauma fall -bruising and abrasions to face -multiple bruising and abrasions to BLE -fall risk Leukocytosis -WBC 16 -likely reactive to inflammatory process -monitor in AM labs UTI (POA) -Rocephin daily -leukocyte esterase 75, WBC 20-50 DVT ppx: lovenox no concentrated sweets full code - Advance Directives Does patient have a Living Will: No Does patient have a Durable POA for Healthcare: Yes
[2023-06-01] MEDS ORDERED: NA CHLORIDE 0.9% 1,000 ML IV SCH (16:00)
[2023-06-01] MEDS: INSULIN -REGULAR HUMAN 50 UNIT/0.5 ML ML SQ SCH ×2 (16:30→20:48)
[2023-06-01 17:53] LABS: Specific Gravity 1.018 (1.005-1.030); Urine Bacteria <20 /HPF (<20); Urine Bilirubin NEGATIVE (Negative); Urine Blood 3+ (OVER) (Negative); Urine Clarity Extremely Turbid (Clear); Urine Color Yellow (Yellow); Urine Crystals Unidentified Few /HPF (None Seen); Urine Glucose 4+ (Over) (Negative); Urine Mucus Slight /HPF (None Seen); Urine Protein 1+ (Negative); Urine Urobilinogen Normal (Normal); Urine WBC Clump Occasional /HPF (None Seen)
[2023-06-01 18:30] VITALS: O2SAT 100
[2023-06-01] MEDS: MORPHINE 2 MG/ML SYR IV PRN (22:43)
[2023-06-01] MEDS ORDERED: MORPHINE 2 MG/ML SYR ONE (22:53)
[2023-06-01 23:31] VITALS: BMI 26.6
[2023-06-02 03:45] LABS: Absolute Lymphocytes (CBC) 1.7 K/uL (0.7-4.9); Hematocrit 32.7 % (39.6-49.0); Lymphocytes % 13.2 % (15.3-44.8); MCV 92.3 fL (80-100); MPV 9.3 fL (7.6-11.3); Platelets 202 thou/uL (152-406); RBC Red Blood Cell Count 3.55 M/uL (4.33-5.43)
[2023-06-02 03:52] LABS: Albumin 2.7 g/dL (3.4-5.0); Bilirubin Total 0.8 mg/dL (0.2-1.0); Potassium 4.1 mEq/L (3.5-5.1); Protein, Total 5.9 g/dL (6.4-8.2)
[2023-06-02] MEDS: MORPHINE 2 MG/ML SYR IV PRN ×2 (04:50→20:43)
[2023-06-02] MEDS: NA CHLORIDE 0.9% 1,000 ML IV SCH ×3 (05:11→20:45)
[2023-06-02] MEDS: INSULIN -REGULAR HUMAN 50 UNIT/0.5 ML ML SQ SCH ×4 (07:30→20:51)
[2023-06-02] MEDS: CEFTRIAXONE 1,000 MG in NA CHLORIDE 0.9% 50 ML IVPB SCH (09:21)
--- NOTE | 2023-06-02 10:05 | RAD REPORT ---
EXAM DESCRIPTION: US - Renal Ultrasound-Complete - 06/02/2023 5:15 am CLINICAL HISTORY: axel COMPARISON: Renal Ultrasound-Complete dated 06/04/2018 TECHNIQUE: Sonographic grayscale and color flow images of the kidneys and bladder were obtained. FINDINGS: Both kidneys are normal in size, shape and echotexture. The right kidney measures 9.9 cm in length. No hydronephrosis, focal mass or perinephric fluid. The left kidney measures 8.1 cm in length. No hydronephrosis, focal mass or perinephric fluid. Small bilateral cysts including a 1 cm right renal parapelvic cyst and a 1.1 cm left renal cortical c yst, benign in appearance. The urinary bladder is decompressed with Sanders catheter in place. IMPRESSION: No hydronephrosis. Small bilateral renal cysts.
--- NOTE | 2023-06-02 11:27 | P.CNS ---
Date of Consult: 06/02/23 Reason for Consult: ESTHELA Requesting Physician: Danie Finney Chief Complaint: injury fall History of Present Illness: Pt is a 77-year-old male whose history is largely obtained through chart review and information provided by family with reports of fall and being found down on the ground, weak and with bruises. Patient apparently lives mostly at home and is able to carry out some ADLs but daughter reports is confined mostly to one room and transfers or ambulates only short distances. Patient has a reported past medical history of CVA with left-sided weakness, Type II DM with unspecified complications and other. Pt on presentation had a number of metabolic abnormalities, hyperglycemia and leukocytosis with concern for infection with abnormal UA. Allergies No Known Allergies Allergy (Verified 02/28/20 23:50) - Past Medical/Surgical History Diabetic: Yes -: Hypertension -: NIDDM -: CVA 12/2017 -: strokes x 2 -: Cholecystectomy -: right Cataracts repair -: Appendectomy - Family History Mother Medical History: Hypertension, Diabetes - Social History Smoking Status: Current every day smoker Alcohol use: Yes CD- Drugs: No Caffeine use: Yes Review of Systems is unable to be obtained Physical Examination Temp Pulse Resp BP Pulse Ox 97.8 F 66 20 166/75 H 99 06/02/23 08:00 06/02/23 08:00 06/02/23 08:00 06/02/23 08:00 06/02/23 08:00 General: Cachectic, Other (Chronically ill appearing, frail) HEENT: Other (Scalp bruising, mild swelling) Neck: Supple Respiratory: Normal air movement, Other (Non tachypnec, no rhonchi) Cardiovascular: No edema, Regular rate/rhythm Gastrointestinal: Soft and benign, Non-distended, No guarding Musculoskeletal: No swelling, No contractures, No tenderness Integumentary: Skin breakdown, Skin lesion Neurological: Normal speech, Other (Awake, partially oriented, no tremors or myoclonus noted) Laboratory Data (last 24 hrs) 06/01/23 06/01/23 11:30 11:30 WBC 16.00 H Hgb 12.9 L Hct 37.7 L Plt Count 254 Sodium 133 L Potassium 4.7 BUN 54 H Creatinine 3.02 H Glucose 566 H* Total Bilirubin 1.3 H AST 69 H ALT 28 Alkaline Phosphatase 85 Lipase 38 Conclusions/Impression: A/P) 1. Stage II ESTHELA in the setting of volume depletion, hyperglycemia, infection, acute rhabdomyolysis and other. Unknown baseline kidney function, Lt kidney reported as smaller than Rt but no other sig parenchymal abnormalities reported. No obstructive uropathy 2. Acute rhabdomyolysis related to fall and immobilization -cont NS IVF, trend CPK levels, currently remains > 1000 but no complications. K level ok. 3. UTI POA site unspecified but presumed cystitis, with no reports of retention of urine but soto in place. F/u urine and BCx, cont Abx. Microscopic hematuria unspecified in this setting 4. Type II DM with hyperglycemia/hyperosmolar non ketotic state on admission - management per primary team 5. NSTEMI, troponin leak -serial trend performed on admission, not upward rising, management per primary team. 6. Chronic HTN -trend BP, hold any JENNY inhibitors/diuretics at this time. Garry Corrigan MD, CATE
--- NOTE | 2023-06-02 12:49 | P.PN ---
Subjective Date of Service: 06/02/23 Chief Complaint: Rhabdomyolysis recent fall abdominal pain Patient is 77 years of age he is debilitated from his stroke currently he had fallen found to have mild rhabdomyolysis found unconscious on the floor [id number] at the bedside is also intermittent abdominal pain Review of Systems Unremarkable General: Weakness Physical Examination - Vital Signs Temperature: 97.8 F Blood Pressure: 166/75 Pulse: 66 Respirations: 20 Pulse Ox (%): 99 - Physical Exam General: Alert, Oriented x1 Neck: Supple Respiratory: Clear to auscultation bilaterally Cardiovascular: No edema, Regular rate/rhythm Gastrointestinal: Normal bowel sounds, Soft and benign Musculoskeletal: Other (Patient has weakness on the left side from his stroke) - Studies Laboratory Data (last 24 hrs) 06/01/23 11:30 WBC 16.00 H Hgb 12.9 L Hct 37.7 L Plt Count 254 Assessment And Plan - Current Problems (Diagnosis) (1) Cystitis Current Visit: Yes Status: Acute Plan: Patient is 77 years of age admitted with a fall was found unconscious he appears to have cystitis mild rhabdomyolysis and renal insufficiency continue with IV fluids patient unable to live by himself 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
[2023-06-02] MEDS: THIAMINE HCL 100 MG TABLET PO SCH ×2 (14:59→20:55)
[2023-06-02] MEDS ORDERED: BISMUTH SUBSALICYL 262MG/15ML-240 ML BTL PO PRN (16:22)
--- NOTE | 2023-06-02 16:36 | EKG ---
Test Date: 2023-06-01 Test Time: 11:04:39 Veterans Employment Representative: DELFINO MEASUREMENT RESULTS: Intervals: Rate: 88 [place]: 168 QRSD: 86 QT: 374 QTc: 452 [place]: P: 72 [place]: 168 QRS: -5 T: 49 INTERPRETIVE STATEMENTS: Normal sinus rhythm Normal ECG Compared to ECG 02/28/2020 18:08:51 No significant changes Electronically Signed On 06-02-23 16:32:29 CDT by Jagdish Aragon
[2023-06-03 04:17] LABS: Absolute Lymphocytes (CBC) 2.2 K/uL (0.7-4.9); Hematocrit 37.2 % (39.6-49.0); Lymphocytes % 18.8 % (15.3-44.8); MPV 8.4 fL (7.6-11.3); Platelets 220 thou/uL (152-406)
[2023-06-03 04:35] LABS: Bilirubin Total 0.7 mg/dL (0.2-1.0); Protein, Total 6.8 g/dL (6.4-8.2)
[2023-06-03 04:36] LABS: Potassium 3.9 mEq/L (3.5-5.1)
[2023-06-03] MEDS: INSULIN -REGULAR HUMAN 50 UNIT/0.5 ML ML SQ SCH ×3 (07:30→16:30)
[2023-06-03] MEDS: CEFTRIAXONE 1,000 MG in NA CHLORIDE 0.9% 50 ML IVPB SCH (09:23)
[2023-06-03] MEDS: NA CHLORIDE 0.9% 1,000 ML IV SCH ×2 (09:23→11:11)
[2023-06-03] MEDS: THIAMINE HCL 100 MG TABLET PO SCH (09:23)
--- NOTE | 2023-06-03 11:05 | P.DS ---
Admission Date: 06/01/23 Discharge Date: 06/03/23 Disposition: ROUTINE DISCHARGE Discharge Condition: FAIR Reason for Admission: Rhabdomyolysis recent fall abdominal pain - Problems (1) Cystitis Current Visit: Yes Status: Acute Brief History of Present Illness: Patient is 77 years of age very debilitated lives on his own admitted with a fall a heavy smoker Hospital Course: He was admitted to the hospital for observation he is very debilitated at baseline is barely able to use the restroom. He is also debilitated from his stroke on the left side and today's was complaining slight weakness of his right leg daughter at the bedside this is his baseline going to take him home he is a very heavy smoker have added some bronchodilators and steroids on examination is alert oriented responsive cooperative chest is clear abdomen is soft Labs reviewed cultures are all negative renal function White count improving he was discharged home on some antibiotics Vital Signs/Physical Exam: Temp Pulse Resp BP Pulse Ox 97.6 F 74 16 167/79 H 92 06/03/23 08:00 06/03/23 08:00 06/03/23 08:00 06/03/23 08:00 06/03/23 08:00 Laboratory Data at Discharge: WBC 11.70 thou/uL (4.3-10.9) H 06/03/23 04:09 Hgb 12.6 g/dL (13.6-17.9) L D 06/03/23 04:09 Hct 37.2 % (39.6-49.0) L 06/03/23 04:09 Plt Count 220 thou/uL (152-406) 06/03/23 04:09 Sodium 138 mEq/L (136-145) 06/03/23 04:09 Potassium 3.9 mEq/L (3.5-5.1) 06/03/23 04:09 BUN 41 mg/dL (7-18) H 06/03/23 04:09 Creatinine 1.85 mg/dL (0.70-1.30) H 06/03/23 04:09 Glucose 64 mg/dL (74-106) L 06/03/23 04:09 Total Bilirubin 0.7 mg/dL (0.2-1.0) 06/03/23 04:09 AST 76 U/L (15-37) H 06/03/23 04:09 ALT 32 U/L (16-61) 06/03/23 04:09 Alkaline Phosphatase 59 U/L (45-117) 06/03/23 04:09 Lipase 38 U/L (13-75) 06/01/23 11:30 Home Medications: Fluticasone/Salmeterol [Advair 250-50 Diskus] 1 each IH BID 30 Days #60 aero 06/03/23 predniSONE [Deltasone*] 10 mg PO BID #20 tab 06/03/23 New Medications: Fluticasone/Salmeterol [Advair 250-50 Diskus] 1 each IH BID 30 Days #60 aero predniSONE [Deltasone*] 10 mg PO BID #20 tab Followup: Christopher Britt MD [Primary Care Provider] - Gilbert Martinez MD [ACTIVE - CAN ADMIT] -
[2023-06-03 13:25] VITALS: TEMP 97
[2023-06-03] MEDS ORDERED: NA CHLORIDE 0.9% 1,000 ML IV SCH (14:12)
--- NOTE | 2023-06-03 16:12 | PN ---
Date of Progress Note: 06/03/2023 Subjective: The patient was seen and examined at bedside. He is doing okay. He is complaining of s evere pain in his muscles. Physical Examination: Vital Signs: Have been reviewed overnight and have remained stable. He continues to be on IV supple mentation. General: He appears cachectic, malnourished. HEENT: Shows atraumatic head with some bruises noted on his face. Lungs: Clear to auscultation. Abdomen: Soft. Extremities: With cachexia and muscle wasting noted. Laboratory Data: Showing creatinine improving to 1.85 from 2.2 yesterday. Electrolytes are stable a nd lactic acid has also improved. CBC showing improving leukocytosis, hemoglobin, hematocrit, and pl atelet count. Impression: 1.Acute on chronic renal insufficiency, likely secondary to acute tubular necrosis, currently with i mproving renal function. 2.Rhabdomyolysis, improving. 3.Severe malnutrition and cachexia. 4.Urinary tract infection, possible cystitis. The patient has Sanders catheter. We will need to give a voiding trial. Plan: Overall, the patient is doing okay. Discussed with his daughter at bedside. Renal function i s improving. We will decrease level of hydration at this time from normal saline at 100 cc an hour d own to 50 cc an hour and monitor him closely. VV/MODL Voice ID: [id number] Report ID: [id number]
[2023-06-03 16:43] VITALS: BP 179/84
[2023-06-03] MEDS ORDERED: LACTULOSE 20 GM/30 ML UCUP PO PRN (17:08)
[2023-06-03] MEDS ORDERED: AMLODIPINE 5 MG TAB PO SCH (17:08)
--- NOTE | 2023-06-07 14:45 | EKG ---
Test Date: 2023-06-01 Test Time: 11:06:23 Pompom Maker: DELFINO MEASUREMENT RESULTS: Intervals: Rate: 86 [place]: 168 QRSD: 80 QT: 378 QTc: 452 [place]: P: 54 [place]: 168 QRS: -6 T: 39 INTERPRETIVE STATEMENTS: Normal sinus rhythm Normal ECG Compared to ECG 06/01/2023 11:04:39 No significant changes Electronically Signed On 06-07-23 14:35:05 CDT by Jagdish Aragon
== END 2023-06-03 20:33 | disposition home or self-care (01) | DRG 557 ==
LOC: ER 09:23 → ERHOLD 15:26 → 2ND 17:02
PROVIDERS: ADMIT Internal Medicine Sleep Medicine; ATTEND Internal Medicine Sleep Medicine
PROC: 05HY33Z Insertion of Infusion Device into Upper Vein, Percutaneous Approach (ICD-10-PCS; principal; 2023-06-01)
DX: M62.82 Rhabdomyolysis (principal); E11.00 Type 2 diabetes mellitus with hyperosmolarity without nonketotic hyperglycemic-hyperosmolar coma (NKHHC); I21.4 Non-ST elevation (NSTEMI) myocardial infarction; E43 Unspecified severe protein-calorie malnutrition; N17.9 Acute kidney failure, unspecified; R64 Cachexia; N30.00 Acute cystitis without hematuria; I69.354 Hemiplegia and hemiparesis following cerebral infarction affecting left non-dominant side; I12.9 Hypertensive chronic kidney disease with stage 1 through stage 4 chronic kidney disease, or unspecified chronic kidney disease; N18.9 Chronic kidney disease, unspecified; E11.22 Type 2 diabetes mellitus with diabetic chronic kidney disease; E11.65 Type 2 diabetes mellitus with hyperglycemia; D72.829 Elevated white blood cell count, unspecified; S09.90XA Unspecified injury of head, initial encounter; F17.210 Nicotine dependence, cigarettes, uncomplicated; R29.6 Repeated falls; Z99.3 Dependence on wheelchair; Z90.49 Acquired absence of other specified parts of digestive tract; Z68.26 Body mass index [BMI] 26.0-26.9, adult; Z79.52 Long term (current) use of systemic steroids; Z79.899 Other long term (current) drug therapy; W19.XXXA Unspecified fall, initial encounter; Y92.9 Unspecified place or not applicable; Y93.01 Activity, walking, marching and hiking; Y99.9 Unspecified external cause status
CPT/HCPCS: 36415; 51702; 70450; 71250; 72125; 76770; 80053; 81001; 82550; 82947; 83605; 83690; 84145; 84484; 85025; 87040; 87086; 87088; 90471; 93005; 96372; 97112; 97162; 97530; 99285; J0696; J1815; J2270; J7030; J7040